=== PATIENT | female | born 1990 | race Caucasian/White ===

== ENCOUNTER 2022-03-21 01:20 | Emergency (ER) | payer BC, SELFPAY ==
[2022-03-21 01:35] VITALS: BP 96/68; PULSE 79; RESP 16; TEMP 36.9; O2SAT 100; BMI 23.7
[2022-03-21] MEDS: diphenhydrAMINE 50 MG/ML inj IVP (02:37)
[2022-03-21] MEDS: 0.9 % SODIUM CHLORIDE 1000 ml 1,000 ML IV ×2 (02:38→04:01)
[2022-03-21] MEDS: METOCLOPRAMIDE HCL 10 MG in 0.9 % SODIUM CHLORIDE 100 ml 100 ML 306 MG IVPB (02:39)
[2022-03-21 02:51] LABS: Eosinophils Percent Auto 0.6 % (0.0-7.0); Hematocrit 33.1 % (33.0-51.0); Hemoglobin* 11.3 gm/dL (12.0-16.0); Mean Corpuscular HGB Conc 34 gm/dL (32-36); Mean Corpuscular Hemoglobin 30 pg (26-34); Mean Corpuscular Volume 87 fL (80-100); Monocytes Percent Auto 8.3 % (0.0-11.0); Neutrophils Percent Auto 59.1 % (42.0-72.0); Platelet Count* 171 K/uL (140-440); RDW Coefficient of Variation % 12.9 % (11.5-15.5); Red Blood Count 3.81 m/uL (4.00-5.20); White Blood Count* 3.37 K/uL (4.50-11.00)
[2022-03-21 02:55] LABS: Slide Review Reflex No
[2022-03-21 03:03] LABS: Albumin* 3.9 g/dL (3.3-5.0); Chloride* 104 mmol/L (96-114)
[2022-03-21 03:04] LABS: Sodium* 136 mmol/L (135-149)
[2022-03-21 03:05] LABS: Potassium* 3.7 mmol/L (3.6-5.1)
[2022-03-21 03:06] LABS: Amylase* 128 U/L (18-89); Creatinine* 0.6 mg/dL (0.5-1.5); Est. Creatinine Clearance* 113.41; Estimated Glomerular Filt Rate 124 ml/min
[2022-03-21 03:07] LABS: Alanine Aminotransferase* 62 U/L (4-35); Alkaline Phosphatase* 55 U/L (40-150); Aspartate Amino Transferase* 56 U/L (12-35); Bilirubin Total* 0.6 mg/dL (0.1-1.5); Blood Urea Nitrogen* 9 mg/dL (5-24); Calcium* 9.4 mg/dL (8.4-10.6); Carbon Dioxide* 22 mmol/L (20-32); Glucose* 89 mg/dL (60-115); Lipase* 57 U/L (23-300); Total Protein* 7.4 g/dL (6.0-8.3)
--- NOTE | 2022-03-21 03:16 | ED_ITS ---
HPI - Headache General Time Seen by Provider: 01:50 Date Seen: 03/21/22 Chief Complaint: Headache/Migraine Stated Complaint: Migraine Time Seen by Provider: 03/21/22 01:53 Source: patient, RN notes reviewed and old records reviewed Mode of arrival: ambulatory Limitations: no limitations History of Present Illness HPI Narrative: Collette joel is a very pleasant 31-year-old female currently at approximately 13 weeks and 4 days with an EDC of 09/22/2022 who comes to the emergency room for evaluation regarding a headache. Patient has a history of migraines. She states this came on yesterday at noon. She states that her whole head hurts where usually just the front of her head hurts with a migraine. Her headache is associated with vomiting but she states that she has also been experiencing hyperemesis secondary to her . She states she has not been able to keep down any food or fluid today. She has been getting IV fluids at [facility]. She also notes that her stomach hurts and she shows this to be the epigastrium. She denies any urinary symptoms or vaginal discharge. She has hot had any exposure to COVID and denies a runny nose cough or congestion. Patient denies any recent ill exposures. She is not experiencing any lower abdominal pain or vaginal discharge. She also denies any urinary symptoms. MD elicited complaint: headache and migraine Related Data Home Medications Medication Instructions Recorded Confirmed levothyroxine 100 mcg tablet 150 mcg PO DAILY 03/21/22 03/21/22 ondansetron HCl 4 mg tablet 4 mg PO Q8H PRN 03/21/22 03/21/22 Allergies Allergy/AdvReac Type Severity Reaction Status Date / Time No Known Drug Allergies Allergy Verified 03/21/22 01:37 Review of Systems Status of ROS: Reports: 10 or more systems reviewed and unremarkable except as noted in History and below Const: Reports: other ([place] warm and sweaty when she woke up from a nap.); Denies: fever Eyes: Denies: change in vision ENMT: Denies: throat pain or difficulty swallowing Cardio: Denies: chest pain or shortness of breath with exertion Resp: Denies: shortness of breath or cough GI: Reports: abdominal pain (Epigastrium), nausea and vomiting; Denies: diarrhea, constipation, difficulty swallowing or blood in stool : Denies: painful urination, vaginal bleeding or vaginal discharge Musculo: Denies: back pain Integ/Breast: Denies: rash Neuro: Reports: headache; Denies: numbness in extremities or weakness in extremities Endo: Denies: excessive urination [facility] Social History Smoking Status: Light tobacco smoker How often do you have a drink containing alcohol: monthly or less How often do you have six or more drinks on one occasion: Never AUDIT-C Alcohol total score: 1 Non-prescribed substance use: denies use Exam Narrative: Exam Narrative: Past medical history: Migraines, hyperemesis, gastritis, hypothyroidism, otitis, UTI Past family history: Patient denies any recent ill contacts. Past social history: Patient denies any alcohol use. Const: Vital Signs, click to edit/add: Vital Signs - 24 hr 03/21/22 01:35 Temperature 98.5 F Pulse Rate [Pulse Oximeter] 79 Respiratory Rate 16 Blood Pressure [Ri ght Upper Arm] 96/68 Pulse Oximetry 100 Oxygen Delivery Me thod Room Air Documenting provider has reviewed patient's vital signs: yes Common normals: average body habitus, oriented x3 and no limitations Other: Patient is holding her head. During our exam she does start crying. HENMT: Common normals: normocephalic, head/scalp atraumatic and external ears normal Head and scalp: normocephalic and atraumatic Face and sinus: normal facial exam External ear: external ears normal Eye: Common normals: PERRL General eye: normal appearance of both eyes Pupil: PERRL Other: Mild photophobia. Neck & C-Spine: Common normals: full ROM, no lymphadenopathy and supple Resp: Common normals: normal respiratory effort and clear to auscultation bilaterally Effort & inspection: able to speak in complete sentences Auscultation: clear to auscultation bilaterally Cardio: Common normals: regular rate and regular rhythm Rate: regular rate Rhythm: regular rhythm GI: Common normals: soft to palpation Palpation: soft and tender (Mild in epigastrium) Details: not LLQ, not RLQ and negative for Am's sign : Common normals: no CVA tenderness Bladder/kidney exam: no CVA tenderness Back & Pelvis: Common normals: no CVA tenderness Extremity: Common normals: normal to inspection Neuro: Common normals: oriented x3 Speech: speech normal Psych: Common normals: mental status grossly normal and thought process normal Mood and affect: tearful Thought process: normal thought process Thought content: normal thought content Skin: Common normals: no rashes or lesions noted General skin exam: no rashes or lesions noted Course Course Hospital Course: Given patient's history of migraines this is course in the differential diagnosis. Would all have so have to consider life-threatening illnesses such as acute in her cranial bleed, COVID, meningitis,. Patient is afebrile with normal vital signs at this time and a supple neck. Will treat her for migraine with Benadryl 50 mg, Reglan 10 mg slow IV drip and 1 L of normal saline. Given that this headache is not her usual pattern will also check CBC, comprehensive panel, amylase, lipase, urinalysis and a CRP. Reevaluation(s) Reevaluation #1: Patient is noted to be improved and rates her headache a 2/10 at this time. She has not urinated and thus will give a 2 L of normal saline. Reevaluation #2: Note that white count is slightly depressed at 3.37 but a COVID is negative. CRP is also negative. Patient has a slight elevation of AST at 56 and ALT at 62. Patient does not have a gallbladder. Alk phos is reassuring. Amylase slightly elevated at 128. Lipase is normal. Reevaluation #3: Patient is noted to be feeling better. She has been able to rest here. I discussed her labs with her which are reassuring at this time including a urinalysis. COVID is negative. Vital Signs Vital signs: Initial Vital Signs Temperature 98.5 F 03/21/22 01:35 Temperature Source Temporal Artery Scan 03/21/22 01:35 Pulse Rate 79 03/21/22 01:35 Respiratory Rate 16 03/21/22 01:35 Blood Pressure 96/68 03/21/22 01:35 Blood Pressure Mean 77 03/21/22 01:35 Blood Pressure Position Sitting 03/21/22 01:35 Pulse Oximetry 100 03/21/22 01:35 Oxygen Delivery Method 03/21/22 01:35 Vital Signs Temperature 98.5 F 03/21/22 01:35 Pulse Rate 79 03/21/22 01:35 Respiratory Rate 16 03/21/22 01:35 Blood Pressure 96/68 03/21/22 01:35 Pulse Oximetry 100 03/21/22 01:35 Oxygen Delivery Method 03/21/22 01:35 Temperature 98.5 F 03/21/22 01:35 Pulse Rate 79 03/21/22 01:35 Respiratory Rate 16 03/21/22 01:35 Blood Pressure 96/68 03/21/22 01:35 Pulse Oximetry 100 03/21/22 01:35 Oxygen Delivery Method 03/21/22 01:35 MDM - Headache MDM Narrative Medical decision making narrative: 1. Migraine-patient has reassuring laboratory values as well as vital signs. I do not see this as a septic or life-threatening picture especially since patient is better after Reglan, Benadryl and fluids. No neurological deficits. Patient will be discharged home. No work for today. Rest and push fluids. Follow-up with primary MD for further evaluation. 2. Abdominal pain-patient is improved at this time. 3. Disposition-home. Return as needed for worsening symptoms or onset of new symptoms. Medical Records Attestation: I reviewed the patient's medical records. Lab Data Attestation: I reviewed the patient's lab results. Labs: Lab Results 03/21/22 03/21/22 03/21/22 Range/Units 02:25 02:25 02:25 WBC 3.37 L (4.50-11.00) K/uL RBC 3.81 L (4.00-5.20) m/uL Hgb 11.3 L (12.0-16.0) gm/dL Hct 33.1 (33.0-51.0) % MCV 87 (80-100) fL MCH 30 (26-34) pg MCHC 34 (32-36) gm/dL RDW Coeff of [place] 12.9 (11.5-15.5) % Plt Count 171 (140-440) K/uL Neut % (Auto) 59.1 (42.0-72.0) % Lymph % (Auto) 32.0 (20-44) % [place] % (Auto) 8.3 (0.0-11.0) % Eos % (Auto) 0.6 (0.0-7.0) % Baso % (Auto) 0.0 (0.0-3.0) % Neut # (Auto) 2.00 (1.7-7.0) K/uL Lymph # (Auto) 1.10 (0.90-2.90) K/uL Gonzales # (Auto) 0.30 (0.00-0.90) K/UL Eos # (Auto) 0.00 (0.00-0.50) K/uL Baso # (Auto) 0.00 (0.00-0.30) K/uL Abs Immat Gran (auto) 0.00 (0.00-0.30) K/uL Sodium 136 (135-149) mmol/L Potassium 3.7 (3.6-5.1) mmol/L Chloride 104 (96-114) mmol/L Carbon Dioxide 22 (20-32) mmol/L BUN 9 (5-24) mg/dL Creatinine 0.6 (0.5-1.5) mg/dL Estimated Creat Clear 113.41 Estimated GFR 124 ml/min Glucose 89 (60-115) mg/dL Calcium 9.4 (8.4-10.6) mg/dL Magnesium Cancelled Total Bilirubin 0.6 (0.1-1.5) mg/dL AST 56 H (12-35) U/L ALT 62 H (4-35) U/L Alkaline Phosphatase 55 (40-150) U/L C-Reactive Protein < 0.5 L (0.5-1.0) mg/dL Total Protein 7.4 (6.0-8.3) g/dL Albumin 3.9 (3.3-5.0) g/dL Amylase 128 H (18-89) U/L Lipase 57 (23-300) U/L Urine Color (Yellow) Urine Appearance (Clear) Urine pH (5.0-8.5) Ur Specific [place] (1.000-1.030) Urine Protein (Negative) Urine Glucose (UA) (Negative) Urine Ketones (Negative) Urine Blood (Negative) Urine Nitrite (Negative) Urine Bilirubin (Negative) Urine Urobilinogen (0.2-1.0) Ur Leukocyte Esterase (Negative) Urine RBC (0-2) Urine WBC (0-5) Ur Squamous Epith Cells (None-Few) Urine Bacteria (None) SARS-CoV-2 (PCR) Negative SARS-CoV-2 (Negative) Influenza Type A (PCR) Negative PCR FLU A (Negative) Influenza Type B (PCR) Negative PCR FLU B (Negative) 03/21/22 Range/Units 05:10 WBC (4.50-11.00) K/uL RBC (4.00-5.20) m/uL Hgb (12.0-16.0) gm/dL Hct (33.0-51.0) % MCV (80-100) fL MCH (26-34) pg MCHC (32-36) gm/dL RDW Coeff of [place] (11.5-15.5) % Plt Count (140-440) K/uL Neut % (Auto) (42.0-72.0) % Lymph % (Auto) (20-44) % [place] % (Auto) (0.0-11.0) % Eos % (Auto) (0.0-7.0) % Baso % (Auto) (0.0-3.0) % Neut # (Auto) (1.7-7.0) K/uL Lymph # (Auto) (0.90-2.90) K/uL [place] # (Auto) (0.00-0.90) K/UL Eos # (Auto) (0.00-0.50) K/uL Baso # (Auto) (0.00-0.30) K/uL Abs Immat Gran (auto) (0.00-0.30) K/uL Sodium (135-149) mmol/L Potassium (3.6-5.1) mmol/L Chloride (96-114) mmol/L Carbon Dioxide (20-32) mmol/L BUN (5-24) mg/dL Creatinine (0.5-1.5) mg/dL Estimated Creat Clear Estimated GFR ml/min Glucose (60-115) mg/dL Calcium (8.4-10.6) mg/dL Magnesium Total Bilirubin (0.1-1.5) mg/dL AST (12-35) U/L ALT (4-35) U/L Alkaline Phosphatase (40-150) U/L C-Reactive Protein (0.5-1.0) mg/dL Total Protein (6.0-8.3) g/dL Albumin (3.3-5.0) g/dL Amylase (18-89) U/L Lipase (23-300) U/L Urine Color Yellow (Yellow) Urine Appearance Cloudy A (Clear) Urine pH 6.5 (5.0-8.5) Ur Specific [place] 1.020 (1.000-1.030) Urine Protein Negative (Negative) Urine Glucose (UA) Negative (Negative) Urine Ketones Negative (Negative) Urine Blood Negative (Negative) Urine Nitrite Positive A (Negative) Urine Bilirubin Negative (Negative) Urine Urobilinogen 0.2 (0.2-1.0) Ur Leukocyte Esterase Trace A (Negative) Urine RBC 0-2 (0-2) Urine WBC 0-2 (0-5) Ur Squamous Epith Cells Moderate A (None-Few) Urine Bacteria Many A (None) SARS-CoV-2 (PCR) (Negative) Influenza Type A (PCR) (Negative) Influenza Type B (PCR) (Negative) Discharge Plan Discharge Clinical Impression: Headache Patient Disposition: Home, Self-Care Condition: Improved Additional Instructions: Push fluids and rest today. No work. Follow-up with your primary MD as needed. Return to the emergency room for worsening symptoms. Prescriptions: No Action ondansetron HCl 4 mg tablet 4 mg PO Q8H PRN Label Comments: TAKE 1 TABLET (4 MG) BY MOUTH EVERY 8 HOURS IF NEEDED FOR NAUSEA/VOMITING. levothyroxine 100 mcg tablet 150 mcg PO DAILY Label Comments: TAKE 1 TABLET BY MOUTH BEFORE BREAKFAST. Follow Up/Referrals: Anastasiia Penny DO [Primary Care Provider] - Stand Alone Forms: [employer] Info Instructions
[2022-03-21 03:19] LABS: C Reactive Protein* < 0.5 mg/dL (0.5-1.0)
[2022-03-21 03:29] LABS: PCR FLU A Negative PCR FLU A (Negative); PCR FLU B Negative PCR FLU B (Negative)
[2022-03-21 03:32] LABS: SARS PCR* Negative SARS-CoV-2 (Negative)
[2022-03-21 05:13] LABS: Appearance Urine Cloudy (Clear); Bilirubin Urine Negative (Negative); Blood Urine Negative (Negative); Color Urine Yellow (Yellow); Glucose Urine Negative (Negative); Ketones Urine Negative (Negative); Leukocyte Esterase Urine Trace (Negative); Nitrite Urine Positive (Negative); Protein Urine Negative (Negative); Urobilinogen Urine 0.2 (0.2-1.0); pH Urine 6.5 (5.0-8.5)
[2022-03-21 05:22] LABS: RBC Urine 0-2 (0-2); WBC Urine 0-2 (0-5)
[2022-03-21 05:23] LABS: Bacteria Urine Many; Squamous Epithelial Cell Urine Moderate (None-Few)
[2022-03-21 05:54] VITALS: BP 95/70; PULSE 72; RESP 16; TEMP 36.1; O2SAT 99
--- NOTE | 2022-03-21 06:00 | ED.NURSE ---
pt called for a ride, waiting in room until they arrive.
== END 2022-03-21 06:04 | disposition home or self-care (01) ==
PROVIDERS: Emergency Provider Family Medicine; PCP Family Medicine
DX: G43.909 Migraine, unspecified, not intractable, without status migrainosus (principal); R10.9 Unspecified abdominal pain; Z3A.13 13 weeks gestation of pregnancy
CPT/HCPCS: 36415; 80053; 81003; 81015; 82150; 83690; 83735; 85025; 86140; 87086; 87186; 87502; 87635; 96365; 96375; 99283; 99284; J1200; J2765; J7030

== ENCOUNTER 2022-04-12 21:13 | Emergency (ER) | payer BC, SELFPAY ==
[2022-04-12] VITALS (7 sets, daily range): BP systolic 95–111; BP diastolic 56–75; PULSE 73–82; RESP 16; TEMP 36.4; O2SAT 98–100; BMI 23.9
--- NOTE | 2022-04-12 21:37 | CRLHL7_ITS ---
For Patients: As a result of the Century Cures Act, medical imaging exams and procedure reports are released immediately into your electronic medical record. You may view this report before your referring provider. If you have questions, please contact your health care provider. INDICATION: Spotting at 16 weeks 5 days. TECHNIQUE: Ultrasound OB pelvis transabdominal. Real-time liu-scale imaging of the fetus was performed as well as color Doppler pressure COMPARISON: Ultrasound 01/31/2022. FINDINGS: Sonographic imaging demonstrates a single living intrauterine gestation. Fetus demonstrates a regular cardiac rate of 157 beats per minute. Fetus has a cephalic orientation. Amniotic fluid volume appears normal. Single deepest pocket measures 3.14 cm. Anechoic area near at the placental edge toward the cervix measuring 1.5 x 0.8 cm, possible subchorionic hemorrhage. Placenta edge to cervix measures 2.3 cm. Cervix is closed measuring 4.37 cm in length. The following biometric measurements were obtained: Biparietal diameter: 3.6 cm, 17 weeks 0 day, approximately 64th percentile. Head circumference: 12.94 cm, 16 weeks 4 day, approximately 32nd percentile. Abdominal circumference: 10.55 cm, 16 weeks 3 day, approximately 42 percentile. Femur length: 2.31 cm, 17 weeks 0 day, approximate 54th percentile. FL/AC ratio 21.8 percent. HC/AC ratio 1.17 The composite ultrasound gestational age is calculated at 16 week 5 day with an estimated sonographic due date of 09/22/2022. The weight is estimated at 164.89 grams, the 39.9 percentile. IMPRESSION.: 1. Single intrauterine with estimated age of 16 weeks 5 day. 2. Anechoic 1.5 x 0.8 cm region at the placental edge towards the cervix, possibly subchorionic hemorrhage. Dictated by Rahul Oropeza MD @ 04/15/2022 8:49:41 AM (Electronically Signed)
--- NOTE | 2022-04-12 21:42 | ED_ITS ---
HPI - General Time Seen by Provider: 21:30 Date Seen: 04/12/22 Chief complaint: Vaginal Bleeding Stated complaint: 16 WKS - BLEEDING/ABDOMINAL PAIN Time Seen by Provider: 04/12/22 21:18 Source: patient, RN notes reviewed and old records reviewed Mode of arrival: ambulatory Limitations: no limitations History of Present Illness HPI Narrative: Collette is a very pleasant 31-year-old female G5P 3 with history of miscarriage at approximately 6-7 weeks in the spring of this year who comes to the emergency room for evaluation regarding vaginal bleeding. Patient is approximately 16 weeks with an EDC of September. She states that earlier today she was experiencing some mild cramping in her abdomen. This evening she was in the shower and looked down and noticed blood coming down her leg. There has been no bleeding since that time. She does have associated left sided abdominal pain and suprapubic cramping. She denies nausea vomiting or fever. She is currently being treated for a UTI. She has not had any diarrhea or dysuria. Patient denies fever or chills. Patient : Yes Number of Weeks : 16+ Related Data : 5 Para: 3 Total number of abortions (spontaneous and elective): 1 (Spontaneous at approximately 6-7 weeks) Home Medications Medication Instructions Recorded Confirmed levothyroxine 100 mcg tablet 150 mcg PO DAILY 03/21/22 04/12/22 ondansetron HCl 4 mg tablet 4 mg PO Q8H PRN 03/21/22 04/12/22 cephalexin 500 mg capsule 500 mg PO BID 04/12/22 04/12/22 Allergies Allergy/AdvReac Type Severity Reaction Status Date / Time No Known Drug Allergies Allergy Verified 03/21/22 01:37 Review of Systems Status of ROS: Reports: 10 or more systems reviewed and unremarkable except as noted in History and below Const: Denies: fever or chills Eyes: Denies: change in vision ENMT: Denies: throat pain or difficulty swallowing Cardio: Denies: chest pain, palpitations or shortness of breath with exertion Resp: Denies: shortness of breath or cough GI: Reports: abdominal pain; Denies: nausea, vomiting, diarrhea or difficulty swallowing : Reports: other (Currently taking antibiotics for UTI); Denies: painful urination or urinary frequency Musculo: Denies: back pain Neuro: Denies: headache Psych: Reports: other (Fearful) [facility] Medical History Anemia affecting Graves' disease H. pylori infection Hyperemesis gravidarum Hypothyroidism (acquired) Major depressive disorder Pancytopenia Vitamin D deficiency Surgical History No significant past surgical history Social History Smoking Status: Light tobacco smoker How often do you have a drink containing alcohol: monthly or less How often do you have six or more drinks on one occasion: Never AUDIT-C Alcohol total score: 1 Non-prescribed substance use: denies use Exam 2 Const: Vital Signs, click to edit/add: Vital Signs - 24 hr 04/12/22 21:19 04/12/22 21:52 04/12/22 22:20 Temperature 97.6 F Pulse Rate 77 77 Pulse Rate [Right Pulse Oximeter] 73 Respiratory Rate 16 Blood Pressure 106/75 Blood Pressure [Ri ght Upper Arm] 111/75 Pulse Oximetry 98 98 100 Oxygen Delivery Me thod Room Air 04/12/22 22:21 04/12/22 23:50 04/12/22 22:59 Temperature 97.6 F Pulse Rate 77 77 Pulse Rate [Right Pulse Oximeter] Respiratory Rate Blood Pressure 95/56 L Blood Pressure [Ri ght Upper Arm] Pulse Oximetry 100 99 Oxygen Delivery Me thod 04/12/22 23:00 Temperature Pulse Rate 82 Pulse Rate [Right Pulse Oximeter] Respiratory Rate Blood Pressure Blood Pressure [Ri ght Upper Arm] Pulse Oximetry 100 Oxygen Delivery Me thod Documenting provider has reviewed patient's vital signs: yes Common normals: average body habitus, oriented x3, no limitations, healthy appearing and alert General appearance: cooperative and anxious Other: Holding the left side of her abdomen. HENMT: Common normals: normocephalic and external nose normal Head and scalp: normocephalic Face and sinus: normal facial exam Nose: external nose normal Mouth: oral and palatal mucosa normal Throat: posterior oropharynx normal Eye: Common normals: PERRL General eye: normal appearance of both eyes Pupil: PERRL Neck & C-Spine: Common normals: full ROM and supple Resp: Common normals: normal respiratory effort and clear to auscultation bilaterally Auscultation: clear to auscultation bilaterally Cardio: Common normals: regular rate Rate: regular rate GI: Common normals: soft to palpation Palpation: soft and tender Details: LLQ and LUQ : Common normals: no CVA tenderness Bladder/kidney exam: no CVA tenderness Back & Pelvis: Common normals: no CVA tenderness Extremity: Common normals: normal to inspection General: no edema Neuro: Common normals: oriented x3 Sensorium/orientation: alert Speech: speech normal Psych: Common normals: mental status grossly normal and thought process normal Mood and affect: tearful and fearful Thought process: normal thought process Skin: Common normals: no rashes or lesions noted General skin exam: no rashes or lesions noted Course Course Hospital Course: Patient will undergo pelvic ultrasound. heart tones are [address] IV and draw CBC, comprehensive panel, CRP, lactate and obtain urinalysis. Will plan on OB consult. Vital Signs Vital signs: Initial Vital Signs Temperature 97.6 F 04/12/22 21:19 Temperature Source Temporal Artery Scan 04/12/22 21:19 Pulse Rate 73 04/12/22 21:19 Respiratory Rate 16 04/12/22 21:19 Blood Pressure 111/75 04/12/22 21:19 Blood Pressure Mean 87 04/12/22 21:19 Blood Pressure Position Sitting 04/12/22 21:19 Pulse Oximetry 98 04/12/22 21:19 Oxygen Delivery Method 04/12/22 21:19 Vital Signs Temperature 97.6 F 04/12/22 21:19 Pulse Rate 73 04/12/22 21:19 Respiratory Rate 16 04/12/22 21:19 Blood Pressure 111/75 04/12/22 21:19 Pulse Oximetry 98 04/12/22 21:19 Oxygen Delivery Method 04/12/22 21:19 Temperature 97.6 F 04/12/22 23:50 Pulse Rate 82 04/12/22 23:00 Respiratory Rate 16 04/12/22 21:19 Blood Pressure 95/56 L 04/12/22 22:59 Pulse Oximetry 100 04/12/22 23:00 Oxygen Delivery Method 04/12/22 21:19 MDM - OB/Uterine Contractions MDM Narrative Medical decision making narrative: 1. Vaginal bleeding-ultrasound reassuring with small area of subchorionic hemorrhage only. Baby appears to be moving and appears healthy. No evidence of placenta previa. Patient did have sexual activity yesterday. Perhaps this is related. Recommend abstinence from sexual activity at this time. 2. Left upper quadrant discomfort. -patient noted to be much improved. Will give her Tylenol 650 mg p.o.. Vital signs are without tachycardia. Urinalysis without evidence of hematuria or UTI. White count slightly depressed at 3.42. Hemoglobin is 10.7 with previous value of 11.3. Electrolyte panel within normal limits and CRP within normal limits. 3. Disposition- patient now noted to be feeling much better. No recurrent bleeding. No fever chills or vomiting. Patient is normally seen by Dr. Penny, [facility]. Patient is instructed to return for any worsening symptoms. She notes resolution of her symptoms at this time. No evidence of sepsis, UTI, hematuria, electrolyte balance, kidney failure. Medical Records Attestation: I reviewed the patient's medical records. Lab Data Attestation: I reviewed the patient's lab results. Labs: Lab Results 04/12/22 04/12/22 04/12/22 Range/Units 21:35 21:35 21:35 WBC 3.42 L (4.50-11.00) K/uL RBC 3.62 L (4.00-5.20) m/uL Hgb 10.7 L (12.0-16.0) gm/dL Hct 31.6 L (33.0-51.0) % MCV 87 (80-100) fL MCH 30 (26-34) pg MCHC 34 (32-36) gm/dL RDW Coeff of [place] 14.0 (11.5-15.5) % Plt Count 187 (140-440) K/uL Neut % (Auto) 53.5 (42.0-72.0) % Lymph % (Auto) 37.4 (20-44) % [place] % (Auto) 8.8 (0.0-11.0) % Eos % (Auto) 0.3 (0.0-7.0) % Baso % (Auto) 0.0 (0.0-3.0) % Neut # (Auto) 1.80 (1.7-7.0) K/uL Lymph # (Auto) 1.30 (0.90-2.90) K/uL [place] # (Auto) 0.30 (0.00-0.90) K/UL Eos # (Auto) 0.00 (0.00-0.50) K/uL Baso # (Auto) 0.00 (0.00-0.30) K/uL Abs Immat Gran (auto) 0.00 (0.00-0.30) K/uL Sodium 135 (135-149) mmol/L Potassium 3.7 (3.6-5.1) mmol/L Chloride 106 (96-114) mmol/L Carbon Dioxide 20 (20-32) mmol/L BUN 9 (5-24) mg/dL Creatinine 0.5 (0.5-1.5) mg/dL Estimated Creat Clear 136.09 Estimated GFR 129 ml/min Glucose 95 (60-115) mg/dL Lactate 0.7 (0.5-1.9) mmol/L Calcium 9.5 (8.4-10.6) mg/dL C-Reactive Protein < 0.5 L (0.5-1.0) mg/dL Urine Color (Yellow) Urine Appearance (Clear) Urine pH (5.0-8.5) Ur Specific [place] (1.000-1.030) Urine Protein (Negative) Urine Glucose (UA) (Negative) Urine Ketones (Negative) Urine Blood (Negative) Urine Nitrite (Negative) Urine Bilirubin (Negative) Urine Urobilinogen (0.2-1.0) Ur Leukocyte Esterase (Negative) 04/12/22 Range/Units 21:50 WBC (4.50-11.00) K/uL RBC (4.00-5.20) m/uL Hgb (12.0-16.0) gm/dL Hct (33.0-51.0) % MCV (80-100) fL MCH (26-34) pg MCHC (32-36) gm/dL RDW Coeff of [place] (11.5-15.5) % Plt Count (140-440) K/uL Neut % (Auto) (42.0-72.0) % Lymph % (Auto) (20-44) % [place] % (Auto) (0.0-11.0) % Eos % (Auto) (0.0-7.0) % Baso % (Auto) (0.0-3.0) % Neut # (Auto) (1.7-7.0) K/uL Lymph # (Auto) (0.90-2.90) K/uL [place] # (Auto) (0.00-0.90) K/UL Eos # (Auto) (0.00-0.50) K/uL Baso # (Auto) (0.00-0.30) K/uL Abs Immat Gran (auto) (0.00-0.30) K/uL Sodium (135-149) mmol/L Potassium (3.6-5.1) mmol/L Chloride (96-114) mmol/L Carbon Dioxide (20-32) mmol/L BUN (5-24) mg/dL Creatinine (0.5-1.5) mg/dL Estimated Creat Clear Estimated GFR ml/min Glucose (60-115) mg/dL Lactate (0.5-1.9) mmol/L Calcium (8.4-10.6) mg/dL C-Reactive Protein (0.5-1.0) mg/dL Urine Color Yellow (Yellow) Urine Appearance Clear (Clear) Urine pH 7.5 (5.0-8.5) Ur Specific [place] 1.015 (1.000-1.030) Urine Protein Negative (Negative) Urine Glucose (UA) Negative (Negative) Urine Ketones Negative (Negative) Urine Blood Negative (Negative) Urine Nitrite Negative (Negative) Urine Bilirubin Negative (Negative) Urine Urobilinogen 0.2 (0.2-1.0) Ur Leukocyte Esterase Negative (Negative) Imaging Data Pelvic ultrasound: Attestation: I have reviewed the pertinent imaging results. Radiologist's impression: Placenta: posterior. There is a 1.5 x 0.8 cm anechoic at placental edge, possible subchorionic hemorrhage. The cervix is 2.3cm from the placental edge. Cervical length is 3.8cm. SDP: 3.1 BPD: 3.6cm/17w0d HC: 12.9cm/16w4d AC: 10.5cm/16w3d FL: 2.3cm/17w0d EFW: 164.89g/ 39.9% Ultrasound gestational age: 16w5d, concordant. Discharge Plan Discharge Clinical Impression: Vaginal bleeding Patient Disposition: Home, Self-Care Condition: Improved Additional Instructions: Avoid sexual activity until seen by your primary MD. please see your doctor on Friday. Rest. Tylenol as needed. Return to the emergency room for fever, worsening symptoms and as needed. Prescriptions: No Action ondansetron HCl 4 mg tablet 4 mg PO Q8H PRN Label Comments: TAKE 1 TABLET (4 MG) BY MOUTH EVERY 8 HOURS IF NEEDED FOR NAUSEA/VOMITING. levothyroxine 100 mcg tablet 150 mcg PO DAILY Label Comments: TAKE 1 TABLET BY MOUTH BEFORE BREAKFAST. cephalexin 500 mg capsule 500 mg PO BID Label Comments: TAKE 1 CAPSULE (500 MG) BY MOUTH IN THE MORNING AND 1 CAPSULE (500 MG) IN THE EVENING FOR 7 DAYS Follow Up/Referrals: Anastasiia Penny DO [Primary Care Provider] - Stand Alone Forms: [facility] Info Instructions Procedures Perimortem Number of Weeks : 16+
[2022-04-12 21:51] LABS: Eosinophils Percent Auto 0.3 % (0.0-7.0); Hematocrit 31.6 % (33.0-51.0); Hemoglobin* 10.7 gm/dL (12.0-16.0); Lymphocytes Percent Auto 37.4 % (20-44); Mean Corpuscular HGB Conc 34 gm/dL (32-36); Mean Corpuscular Hemoglobin 30 pg (26-34); Mean Corpuscular Volume 87 fL (80-100); Monocytes Percent Auto 8.8 % (0.0-11.0); Neutrophils Percent Auto 53.5 % (42.0-72.0); Platelet Count* 187 K/uL (140-440); Red Blood Count 3.62 m/uL (4.00-5.20); White Blood Count* 3.42 K/uL (4.50-11.00)
[2022-04-12 21:52] LABS: Lactate* 0.7 mmol/L (0.5-1.9)
[2022-04-12 21:56] LABS: Slide Review Reflex No
[2022-04-12 22:11] LABS: Chloride* 106 mmol/L (96-114)
[2022-04-12 22:12] LABS: Potassium* 3.7 mmol/L (3.6-5.1)
[2022-04-12 22:14] LABS: Creatinine* 0.5 mg/dL (0.5-1.5); Est. Creatinine Clearance* 136.09; Estimated Glomerular Filt Rate 129 ml/min
[2022-04-12 22:15] LABS: Blood Urea Nitrogen* 9 mg/dL (5-24); Carbon Dioxide* 20 mmol/L (20-32); Glucose* 95 mg/dL (60-115)
[2022-04-12 22:16] LABS: Calcium* 9.5 mg/dL (8.4-10.6)
[2022-04-12 22:22] LABS: C Reactive Protein* < 0.5 mg/dL (0.5-1.0)
[2022-04-12 22:26] LABS: Sodium* 135 mmol/L (135-149)
[2022-04-12 23:06] LABS: Appearance Urine Clear (Clear); Bilirubin Urine Negative (Negative); Blood Urine Negative (Negative); Color Urine Yellow (Yellow); Glucose Urine Negative (Negative); Ketones Urine Negative (Negative); Leukocyte Esterase Urine Negative (Negative); Nitrite Urine Negative (Negative); Protein Urine Negative (Negative); Specific Gravity Urine 1.015 (1.000-1.030); Urobilinogen Urine 0.2 (0.2-1.0); pH Urine 7.5 (5.0-8.5)
[2022-04-12] MEDS: ACETAMINOPHEN 325 MG TABLET 650 MG PO (23:50)
[2022-04-13 01:04] VITALS: BP 115/78; PULSE 70; RESP 16; TEMP 36.4; O2SAT 100
[2022-04-13 01:07] VITALS: BP 115/78; PULSE 70; RESP 16; TEMP 36.4
== END 2022-04-13 01:08 | disposition home or self-care (01) ==
PROVIDERS: Emergency Provider Family Medicine; PCP Family Medicine
DX: O46.8X2 Other antepartum hemorrhage, second trimester (principal); Z3A.16 16 weeks gestation of pregnancy; R10.12 Left upper quadrant pain
CPT/HCPCS: 36415; 76815; 76817; 80048; 81003; 83605; 85025; 86140; 99284; A9270

== ENCOUNTER 2022-04-28 17:42 | Emergency (ER) | payer BC, SELFPAY ==
[2022-04-28 17:44] VITALS: BP 99/65; PULSE 83; RESP 16; TEMP 36.8; O2SAT 99; BMI 25.1
--- NOTE | 2022-04-28 18:00 | CRLHL7_ITS ---
For Patients: As a result of the Cures Act, medical imaging exams and procedure reports are released immediately into your electronic medical record. You may view this report before your referring provider. If you have questions, please contact your health care provider. Indication: Trauma with pain Technique: Limited sonography of the gravid uterus was performed. The study is limited to that which is discussed below. Comparison: April 12, 2022 Findings: There is a single live intrauterine that is transverse. The cervix measures 3.6 centimeters and is closed. The single deepest pocket is 3.9 centimeters. heart rate is 166 beats per minute which is normal. The placenta is posterior. There is no evidence of abruption or hemorrhage behind or at the margins of the placenta. Floating cellular debris is identified in the dependent portion the uterus in the amniotic fluid in the lower uterine segment near the cervix. This was not present on the prior study. This cellular debris is probably red blood cells associated hemorrhage. The exact source of this is not visible on the exam Impression: 1. There is a single live intrauterine with a normal heart rate. Fluid volumes are normal. 2. No visible abruption. No hemorrhage behind her at the margins of the placenta as visualized 3. Floating cellular debris within the dependent portion of the uterus within the amniotic fluid. This is not present on the prior study and probably represents red cells associated with hemorrhage. The exact source of this is not visible on the exam Dictated by Baryan Blancas MD @ 04/28/2022 6:47:42 PM (Electronically Signed)
[2022-04-28] MEDS: ACETAMINOPHEN 500 MG TABLET 1000 MG PO (18:30)
[2022-04-28 18:38] LABS: Eosinophils Percent Auto 0.8 % (0.0-7.0); Hematocrit 28.2 % (33.0-51.0); Hemoglobin* 9.7 gm/dL (12.0-16.0); Lymphocytes Percent Auto 32.8 % (20-44); Mean Corpuscular HGB Conc 34 gm/dL (32-36); Mean Corpuscular Hemoglobin 31 pg (26-34); Mean Corpuscular Volume 89 fL (80-100); Monocytes Percent Auto 9.7 % (0.0-11.0); Neutrophils Percent Auto 56.7 % (42.0-72.0); Platelet Count* 153 K/uL (140-440); RDW Coefficient of Variation % 15.1 % (11.5-15.5); Red Blood Count 3.17 m/uL (4.00-5.20)
[2022-04-28 18:40] LABS: Slide Review Reflex No
[2022-04-28 18:52] LABS: Chloride* 104 mmol/L (96-114); Potassium* 3.2 mmol/L (3.6-5.1); Sodium* 134 mmol/L (135-149)
[2022-04-28 18:55] LABS: Blood Urea Nitrogen* 8 mg/dL (5-24); Carbon Dioxide* 25 mmol/L (20-32); Creatinine* 0.5 mg/dL (0.5-1.5); Est. Creatinine Clearance* 130.12; Estimated Glomerular Filt Rate 129 ml/min
[2022-04-28 18:56] LABS: Calcium* 8.7 mg/dL (8.4-10.6); Glucose* 77 mg/dL (60-115)
[2022-04-28 18:59] LABS: C Reactive Protein* < 0.5 mg/dL (0.5-1.0)
--- NOTE | 2022-04-28 19:31 | ED_ITS ---
HPI - General Adult General Date Seen: 04/28/22 Chief complaint: Abdominal Pain Stated complaint: Abdominal pain Time Seen by Provider: 04/28/22 17:52 Source: patient History of Present Illness HPI narrative: Patient is a 31-year-old woman who is a G5 P 3, she is about 19 weeks , comes in with some pain that started yesterday in the right side of her abdomen on the lateral side, was mild, has persisted gotten a little bit worse and now involves essentially the entire abdomen. She does report that she had a fall yesterday, she says she and her were both in the shower when he started to slip, he grabbed on to her I guess purportedly to stabilize her so that she did not fall but then they both fell and she landed on her knees. She says she did not hit her stomach, has not had any bleeding, but has had this stomach pain since then. She has not taken anything for pain. She has not had any nausea vomiting, appetite has been normal. She has not had any urinary symptoms, no fever. She has had 3 normal pregnancies with induction, 1 miscarriage earlier this year. Related Data Home Medications Medication Instructions Recorded Confirmed levothyroxine 100 mcg tablet 150 mcg PO DAILY 03/21/22 04/28/22 ondansetron HCl 4 mg tablet 4 mg PO Q8H PRN 03/21/22 04/12/22 cephalexin 500 mg capsule 500 mg PO BID 04/12/22 04/12/22 prenat.vits,danuta,[id number] .ROUTE 04/28/22 Allergies Allergy/AdvReac Type Severity Reaction Status Date / Time No Known Drug Allergies Allergy Verified 03/21/22 01:37 Review of Systems Status of ROS: Reports: 10 or more systems reviewed and unremarkable except as noted in History and below [facility] Medical History Anemia affecting Graves' disease H. pylori infection Hyperemesis gravidarum Hypothyroidism (acquired) Major depressive disorder Pancytopenia Vitamin D deficiency Surgical History No significant past surgical history Social History Smoking Status: Never smoker Do you use any of these nicotine containing products: None How often do you have a drink containing alcohol: never AUDIT-C Alcohol total score: 0 Non-prescribed substance use: denies use Exam Narrative: Exam Narrative: Vital signs as noted above. In general, an alert, well-appearing patient. She looks comfortable. Head: Normocephalic, atraumatic. Eyes: Pupils are equal reactive. Extraocular movements are full. Conjunctivae are normal. ENT: Mucous membranes are moist. Throat is normal. Neck: Supple without lymphadenopathy. Heart: Regular rate and rhythm. No murmur or rub. Lungs: Clear bilaterally. No increased work of breathing, crackles or wheezes. Abdomen: Soft and nondistended. Mild diffuse tenderness without rebound guarding or rigidity. No areas of focal increased tenderness. Extremities: Well perfused. No edema. No calf tenderness. Pulses intact. Neurologic: Patient is alert and oriented to person and place. Speech is fluent. Face is symmetric. Moves all extremities equally. Affect: Normal. Skin: Warm and dry. Well perfused. Const: Vital Signs, click to edit/add: Vital Signs - 24 hr 04/28/22 17:44 04/28/22 20:30 Temperature 98.3 F Pulse Rate [Pulse Oximeter] 83 72 Respiratory Rate 16 18 Blood Pressure [Le ft Upper Arm] 99/65 97/73 Pulse Oximetry 99 100 Oxygen Delivery Me thod Room Air Room Air Course Course Hospital Course: With her history of minor trauma yesterday I did elect to do an ultrasound, this is read by Radiology as follows:Impression: 1. There is a single live intrauterine with a normal heart rate. Fluid volumes are normal. 2. No visible abruption. No hemorrhage behind her at the margins of the placenta as visualized 3. Floating cellular debris within the dependent portion of the uterus within the amniotic fluid. This is not present on the prior study and probably represents red cells associated with hemorrhage. The exact source of this is not visible on the exam Urine showed nitrates, no red cells or white cells. I discussed all of this with the on-call OB Gyne doc. He said that the hemorrhage seen in the amniotic fluid would be reasonably followed up on her 20 week scan which is upcoming. He says that there is not really anything else to do about that given that she is previable. I did tell her just to kind of take it easy over the next few days. Asked them to avoid intercourse for few days. She can use Tylenol as needed. She does not have any focal tenderness in her abdomen, she is not having any GI symptoms, my suspicion for early appendicitis is rather low given that this all started yesterday but we did talk about that if she develops focal pain or GI symptoms, fever etcetera would have her return for re-evaluation. Vital Signs Vital signs: Initial Vital Signs Temperature 98.3 F 04/28/22 17:44 Temperature Source Temporal Artery Scan 04/28/22 17:44 Pulse Rate 83 04/28/22 17:44 Respiratory Rate 16 04/28/22 17:44 Blood Pressure 99/65 04/28/22 17:44 Blood Pressure Mean 76 04/28/22 17:44 Blood Pressure Position Supine 04/28/22 17:44 Pulse Oximetry 99 04/28/22 17:44 Oxygen Delivery Method 04/28/22 17:44 Vital Signs Temperature 98.3 F 04/28/22 17:44 Pulse Rate 83 04/28/22 17:44 Respiratory Rate 16 04/28/22 17:44 Blood Pressure 99/65 04/28/22 17:44 Pulse Oximetry 99 04/28/22 17:44 Oxygen Delivery Method 04/28/22 17:44 Temperature 98.3 F 04/28/22 17:44 Pulse Rate 72 04/28/22 20:30 Respiratory Rate 18 04/28/22 20:30 Blood Pressure 97/73 04/28/22 20:30 Pulse Oximetry 100 04/28/22 20:30 Oxygen Delivery Method 04/28/22 20:30 Medical Decision Making Lab Data Labs: Lab Results 04/28/22 04/28/22 04/28/22 Range/Units 18:30 18:30 19:22 WBC 3.60 L (4.50-11.00) K/uL RBC 3.17 L (4.00-5.20) m/uL Hgb 9.7 L (12.0-16.0) gm/dL Hct 28.2 L (33.0-51.0) % MCV 89 (80-100) fL MCH 31 (26-34) pg MCHC 34 (32-36) gm/dL RDW Coeff of [place] 15.1 (11.5-15.5) % Plt Count 153 (140-440) K/uL Neut % (Auto) 56.7 (42.0-72.0) % Lymph % (Auto) 32.8 (20-44) % [place] % (Auto) 9.7 (0.0-11.0) % Eos % (Auto) 0.8 (0.0-7.0) % Baso % (Auto) 0.0 (0.0-3.0) % Neut # (Auto) 2.00 (1.7-7.0) K/uL Lymph # (Auto) 1.20 (0.90-2.90) K/uL [place] # (Auto) 0.30 (0.00-0.90) K/UL Eos # (Auto) 0.00 (0.00-0.50) K/uL Baso # (Auto) 0.00 (0.00-0.30) K/uL Abs Immat Gran (auto) 0.00 (0.00-0.30) K/uL Sodium 134 L (135-149) mmol/L Potassium 3.2 L (3.6-5.1) mmol/L Chloride 104 (96-114) mmol/L Carbon Dioxide 25 (20-32) mmol/L BUN 8 (5-24) mg/dL Creatinine 0.5 (0.5-1.5) mg/dL Estimated Creat Clear 130.12 Estimated GFR 129 ml/min Glucose 77 (60-115) mg/dL Calcium 8.7 (8.4-10.6) mg/dL C-Reactive Protein < 0.5 L (0.5-1.0) mg/dL Urine Color Yellow (Yellow) Urine Appearance Slightly Cloudy A (Clear) Urine pH 7.0 (5.0-8.5) Ur Specific [place] 1.020 (1.000-1.030) Urine Protein Negative (Negative) Urine Glucose (UA) Negative (Negative) Urine Ketones Negative (Negative) Urine Blood Negative (Negative) Urine Nitrite Positive A (Negative) Urine Bilirubin Negative (Negative) Urine Urobilinogen 0.2 (0.2-1.0) Ur Leukocyte Esterase Negative (Negative) Urine RBC 0-2 (0-2) Urine WBC 0-2 (0-5) Urine WBC Clumps None (None) Ur Squamous Epith Cells None (None-Few) Urine Bacteria Moderate A (None) Discharge Plan Discharge Clinical Impression: Abdominal pain Patient Disposition: Home, Self-Care Condition: Stable Instructions: Abdominal Pain in (ED) Additional Instructions: Small amount of blood seen in the amniotic fluid suggest that you had a little bit of trauma from her fall yesterday. This may be causing some of your discomfort. It is located take Tylenol. If you have significant worsening pain, new symptoms such as vomiting, fever, or more focal pain, you should come back for re-evaluation. Otherwise, follow-up with your OB Gyne and for your ultrasound as planned. Prescriptions: No Action ondansetron HCl 4 mg tablet 4 mg PO Q8H PRN Label Comments: TAKE 1 TABLET (4 MG) BY MOUTH EVERY 8 HOURS IF NEEDED FOR NAUSEA/VOMITING. levothyroxine 100 mcg tablet 150 mcg PO DAILY Label Comments: TAKE 1 TABLET BY MOUTH BEFORE BREAKFAST. cephalexin 500 mg capsule 500 mg PO BID Label Comments: TAKE 1 CAPSULE (500 MG) BY MOUTH IN THE MORNING AND 1 CAPSULE (500 MG) IN THE EVENING FOR 7 DAYS prenat.vits,danuta,[id number] .ROUTE Follow Up/Referrals: nAastasiia Penny DO [Primary Care Provider] - Stand Alone Forms: [facility] Info Instructions
[2022-04-28 19:46] LABS: Appearance Urine Slightly Cloudy (Clear); Bilirubin Urine Negative (Negative); Blood Urine Negative (Negative); Color Urine Yellow (Yellow); Glucose Urine Negative (Negative); Ketones Urine Negative (Negative); Leukocyte Esterase Urine Negative (Negative); Nitrite Urine Positive (Negative); Protein Urine Negative (Negative); Urobilinogen Urine 0.2 (0.2-1.0)
[2022-04-28 19:55] LABS: Bacteria Urine Moderate; RBC Urine 0-2 (0-2); WBC Urine 0-2 (0-5)
[2022-04-28 20:30] VITALS: BP 97/73; PULSE 72; RESP 18; O2SAT 100
== END 2022-04-28 20:35 | disposition home or self-care (01) ==
LOC: ED 19:00 → OB 19:02 → ED 19:08
PROVIDERS: Emergency Provider Emergency Medicine; PCP Family Medicine
DX: R10.9 Unspecified abdominal pain (principal); O26.92 Pregnancy related conditions, unspecified, second trimester; Z3A.19 19 weeks gestation of pregnancy
CPT/HCPCS: 36415; 76815; 76817; 80048; 81001; 85025; 86140; 87086; 87186; 99283; 99284; A9270

== ENCOUNTER 2022-05-29 10:27 | Outpatient (RCR) | payer BC, SELFPAY | END 2022-09-05 08:35 | disposition home or self-care (01) | PROVIDERS: PCP Family Medicine; Visit Provider Family Medicine | DX: O26.892 Other specified pregnancy related conditions, second trimester (principal); M54.50 Low back pain, unspecified; Z51.89 Encounter for other specified aftercare; R27.8 Other lack of coordination | CPT/HCPCS: 97162 ==

== ENCOUNTER 2022-08-01 18:09 | Outpatient (CLI) | payer BC, SELFPAY ==
[2022-08-01 18:27] VITALS: BP 99/62; PULSE 78; O2SAT 99
[2022-08-01] MEDS: ACETAMINOPHEN 500 MG TABLET 1000 MG PO (19:11)
[2022-08-01 19:17] LABS: Hematocrit 28.8 % (33.0-51.0); Hemoglobin* 9.9 gm/dL (12.0-16.0); Mean Corpuscular HGB Conc 34 gm/dL (32-36); Mean Corpuscular Hemoglobin 31 pg (26-34); Mean Corpuscular Volume 91 fL (80-100); Platelet Count* 163 K/uL (140-440); Red Blood Count 3.16 m/uL (4.00-5.20); White Blood Count* 3.53 K/uL (4.50-11.00)
[2022-08-01 19:19] LABS: Appearance Urine Slightly Cloudy (Clear); Bilirubin Urine Negative (Negative); Blood Urine Negative (Negative); Color Urine Yellow (Yellow); Glucose Urine Negative (Negative); Ketones Urine Negative (Negative); Leukocyte Esterase Urine Negative (Negative); Nitrite Urine Negative (Negative); Protein Urine Negative (Negative); Specific Gravity Urine 1.015 (1.000-1.030); Urobilinogen Urine 0.2 (0.2-1.0)
[2022-08-01 19:21] LABS: Slide Review Reflex No
[2022-08-01 19:27] LABS: RBC Urine 0-2 (0-2); WBC Urine 0-2 (0-5)
[2022-08-01 19:37] LABS: Total Protein Urine 26 mg/dL
[2022-08-01 19:37] LABS: Alanine Aminotransferase* 29 U/L (4-35); Aspartate Amino Transferase* 29 U/L (12-35); Blood Urea Nitrogen* 7 mg/dL (5-24); Creatinine* 0.5 mg/dL (0.5-1.5); Estimated Glomerular Filt Rate 129 ml/min
[2022-08-01 19:38] LABS: Creatinine Urine 71.5 mg/dL
--- NOTE | 2022-08-01 20:49 | PC.OBNST ---
NST Note NST Note Start: 08/01/22 18:25 Freq: ONCE Status: Active Protocol: Document 08/01/22 20:47 NUPUR (Rec: 08/01/22 20:48 NUPUR [id number]) NST Note 6 Para (# of births) 3 EDC 09/24/22 Gestational Age In Weeks & Days 32 Weeks & 2 Days Patient Presented with Complaint(s) of Contractions/cramping, Decreased movement, Headache Reactive Yes Appropriate for Gestational Age Yes ALIYA Owens RNC Date 08/01/22 Reactive Yes Appropriate for Gestational Age Yes ALIYA Todd RNC Date 08/01/22 OB NST charge Yes Complete NST Note via Write Note Yes The provider's electronic signature indicates the NST is reactive/appropriate for gestational age. *Note to provider: If an addendum is required, open the patient's chart and click on the note under the Nurse/Allied Health tab.
== END 2022-08-01 19:56 | disposition home or self-care (01) ==
LOC: OB OUT 18:10 → OB 18:11
PROVIDERS: PCP Family Medicine; Visit Provider Family Medicine
DX: O36.8130 Decreased fetal movements, third trimester, not applicable or unspecified (principal); Z3A.32 32 weeks gestation of pregnancy
CPT/HCPCS: 36415; 59025; 81003; 81015; 82565; 82570; 84156; 84450; 84460; 84520; 85027; 99213; A9270

== ENCOUNTER 2022-08-22 13:17 | Outpatient (CLI) | payer BC, SELFPAY ==
[2022-08-22 13:22] VITALS: BP 97/56; PULSE 108; RESP 16; TEMP 36.5; O2SAT 98
[2022-08-22 14:48] LABS: Hematocrit 28.7 % (33.0-51.0); Hemoglobin* 9.8 gm/dL (12.0-16.0); Mean Corpuscular HGB Conc 34 gm/dL (32-36); Mean Corpuscular Hemoglobin 31 pg (26-34); Mean Corpuscular Volume 91 fL (80-100); Platelet Count* 150 K/uL (140-440); Red Blood Count 3.16 m/uL (4.00-5.20); White Blood Count* 4.75 K/uL (4.50-11.00)
[2022-08-22 14:55] LABS: Slide Review Reflex No
[2022-08-22 15:13] LABS: Alanine Aminotransferase* 28 U/L (4-35); Aspartate Amino Transferase* 24 U/L (12-35); Blood Urea Nitrogen* 10 mg/dL (5-24); Creatinine* 0.4 mg/dL (0.5-1.5); Estimated Glomerular Filt Rate 136 ml/min
[2022-08-22 15:14] LABS: Total Protein Urine 48 mg/dL
[2022-08-22 15:15] LABS: Creatinine Urine 123.5 mg/dL
[2022-08-22 15:34] VITALS: BP 82/53; PULSE 84
[2022-08-22 15:44] VITALS: BP 86/60; PULSE 89
--- NOTE | 2022-08-25 14:33 | PC.OBNST ---
NST Note NST Note Start: 08/22/22 13:26 Freq: ONCE Status: Active Protocol: Document 08/22/22 15:50 Evette (Rec: 08/25/22 14:33 JREvette [id number]) NST Note 6 Para (# of births) 2 EDC 09/24/22 Gestational Age In Weeks & Days 35 Weeks & 5 Days Patient Presented with Complaint(s) of Headache Reactive Yes Appropriate for Gestational Age Yes RN Debby Bullock RN Date 08/22/22 Reactive Yes Appropriate for Gestational Age Yes ALIYA Gillespie RN Date 08/22/22 OB NST charge Yes Complete NST Note via Write Note Yes The provider's electronic signature indicates the NST is reactive/appropriate for gestational age. *Note to provider: If an addendum is required, open the patient's chart and click on the note under the Nurse/Allied Health tab.
== END 2022-08-22 16:35 | disposition home or self-care (01) ==
LOC: OB OUT 13:17 → OB 13:18
PROVIDERS: PCP Family Medicine; Visit Provider Family Medicine
DX: O26.893 Other specified pregnancy related conditions, third trimester (principal); R51.9 Headache, unspecified; Z3A.35 35 weeks gestation of pregnancy
CPT/HCPCS: 36415; 59025; 81003; 82565; 82570; 84156; 84450; 84460; 84520; 85027; 99213

== ENCOUNTER 2022-08-26 17:07 | Outpatient (CLI) | payer BC, SELFPAY ==
[2022-08-26 17:36] VITALS: TEMP 36.8
[2022-08-26] MEDS: LACTATED RINGERS 1000 ML 1,000 ML 300 ML IV (17:50)
[2022-08-26] MEDS: ACETAMINOPHEN 500 MG TABLET 1000 MG PO (17:50)
[2022-08-26 17:55] VITALS: BP 109/70; PULSE 86
[2022-08-26 18:09] VITALS: BP 102/62; PULSE 85
--- NOTE | 2022-08-26 18:55 | PC.OBNST ---
NST Note NST Note Start: 08/26/22 17:23 Freq: ONCE Status: Active Protocol: Document 08/26/22 18:53 CHRISHILDA (Rec: 08/26/22 18:55 CHRISHILDA [id number]) NST Note 6 Para (# of births) 3 EDC 09/24/22 Gestational Age In Weeks & Days 35 Weeks & 6 Days Patient Presented with Complaint(s) of Other Other Complaints Pt. sent over from Clinic after BPP 01/[address] BP[address] Dr Solo Brooks ordered NST, IV fluids and serial BP's Reactive Yes Appropriate for Gestational Age Yes ALIYA Parra Date 08/26/22 Reactive Yes Appropriate for Gestational Age Yes ALIYA Naylor RN Date 08/26/22 OB NST charge Yes Complete NST Note via Write Note Yes The provider's electronic signature indicates the NST is reactive/appropriate for gestational age. *Note to provider: If an addendum is required, open the patient's chart and click on the note under the Nurse/Allied Health tab.
[2022-08-26 19:58] LABS: SARS PCR* Negative SARS-CoV-2 (Negative)
[2022-08-26 20:00] VITALS: BP 103/65; PULSE 91
== END 2022-08-26 20:03 | disposition home or self-care (01) ==
LOC: OB OUT 17:09 → OB 17:42
PROVIDERS: PCP Family Medicine; Visit Provider Family Medicine
DX: O26.893 Other specified pregnancy related conditions, third trimester (principal); R03.1 Nonspecific low blood-pressure reading; Z3A.35 35 weeks gestation of pregnancy
CPT/HCPCS: 59025; 87635; 99213; A9270; J7120

== ENCOUNTER 2022-08-27 18:04 | Outpatient (CLI) | payer BC, SELFPAY ==
[2022-08-27 20:07] LABS: Total Protein Urine 27 mg/dL
[2022-08-27 20:08] LABS: Creatinine Urine 50.7 mg/dL
[2022-08-27 20:10] LABS: Collection Time Urine 1715 Hours; Total Protein 24 Hour Urine 432 mg/dL; Total Volume 24 Hour Urine 1600 ml; Urine Creatinine mg/24 Hour 0 mg/Day
== END 2022-08-27 18:05 | disposition home or self-care (01) ==
LOC: LAB 18:06
PROVIDERS: PCP Family Medicine; Visit Provider Family Medicine
DX: O13.3 Gestational [pregnancy-induced] hypertension without significant proteinuria, third trimester (principal); Z3A.35 35 weeks gestation of pregnancy
CPT/HCPCS: 82570; 84156

== ENCOUNTER 2022-09-08 17:12 | Inpatient (IN) | payer BC, SELFPAY ==
[2022-09-08] VITALS (41 sets, daily range): BP systolic 94–119; BP diastolic 57–69; PULSE 74–102; RESP 16; TEMP 36.6–36.9; O2SAT 98–100
[2022-09-08] MEDS: ACETAMINOPHEN 500 MG TABLET 1000 MG PO (14:36)
[2022-09-08 15:07] LABS: Hematocrit 30.5 % (33.0-51.0); Hemoglobin* 10.2 gm/dL (12.0-16.0); Mean Corpuscular HGB Conc 33 gm/dL (32-36); Mean Corpuscular Hemoglobin 31 pg (26-34); Mean Corpuscular Volume 92 fL (80-100); Platelet Count* 191 K/uL (140-440); White Blood Count* 3.81 K/uL (4.50-11.00)
[2022-09-08 15:18] LABS: Slide Review Reflex No
[2022-09-08 15:23] LABS: Total Protein Urine 23 mg/dL
[2022-09-08 15:24] LABS: Creatinine Urine 34.7 mg/dL
[2022-09-08 15:34] LABS: Alanine Aminotransferase* 37 U/L (4-35); Aspartate Amino Transferase* 33 U/L (12-35); Creatinine* 0.4 mg/dL (0.5-1.5); Estimated Glomerular Filt Rate 136 ml/min
[2022-09-08 15:35] LABS: Blood Urea Nitrogen* 9 mg/dL (5-24)
--- NOTE | 2022-09-08 17:12 | P.OBHP_ITS ---
OB - H&P: HPI Labor/Induction History of Present Illness Time Seen by Provider: 17:13 Date Seen: 09/08/22 Chief Complaint: The patient is a 31 year old 6 para 3023 at 37+5 weeks gestation by early ultrasound, who presents for IOL for atypical pre-eclampsia with severe features. Chief complaint: Maternity Narrative: Collette Oneal is a 31 year old female at 37 weeks 5 days by early ultrasound who presents for induction of labor for atypical preeclampsia with severe features. has been complicated by increasing proteinuria with normal blood pressures and intermittent headache and visual changes. Patient has previously been evaluated by Neurology with normal brain MRI and ophthalmology with no other alternative etiologies for her symptoms identified. Presented to triage today with visual floaters present intermittently in both eyes and subsequent onset of headache not relieved by Tylenol. Preeclampsia labs were obtained and significant for mildly elevated ALT and protein c reatinine ratio of 0.6, increasing from prior value of 0.3. Case was discussed with. Etiology is not carbon paper interleafer with [place] physicians, John Montenegro, who recommends IV magnesium and induction of labor. In addition, has been complicated by single umbilical artery, Graves disease on levothyroxine, history of major depression and history of genital herpes on suppressive Valtrex. Review of Systems Status of ROS: Reports: 10 or more systems reviewed and unremarkable except as noted in History and below Meds Home Medications and Allergies Home Medications Medication Instructions Recorded Confirmed Type levothyroxine 100 mcg tablet 150 mcg PO DAILY 03/21/22 08/26/22 History prenat.vits,danuta,[id number] .Route 04/28/22 History Allergies Allergy/AdvReac Type Severity Reaction Status Date / Time No Known Drug Allergies Allergy Verified 08/01/22 18:42 OB - H&P: Exam Physical Exam: Vital signs: Pulse BP Pulse Ox 102 H 111/68 100 09/08/22 16:54 09/08/22 16:54 09/08/22 14:31 Narrative: General appearance: Well-appearing adult female. Sitting up in hospital bed. Alert, oriented and appropriate. HEENT: EOMI, no conjunctival injection or discharge. No nasal discharge. Mucous membranes moist. Neck: Supple. Cardiovascular: Regular rate and rhythm, no rubs, murmurs or extra heart sounds. Pulmonary: Clear to auscultation bilaterally, no wheezes, rales or rhonchi. Abdomen: Gravid. Soft, mild diffuse tenderness. MSK: Moves all extremities appropriately. Extremities: Warm and well perfused. No lower extremity edema. Neuro: Grossly normal strength and sensation. No focal deficits. Psych: Flat affect. Detailed Labor and Delivery Exam: Dilation (cm): 2 Effacement (%): 60 Cervix position: posterior Consistency: soft Cervical ripeness score: 6 Fetus (Single): Heart Rate Baseline: 140 Monitor Accelerations: Present Monitor Decelerations: None Child Life Therapist Variability: Moderate (6-25) OB - Results Labs Labs: Short CBC 09/08/22 Range/Units 15:00 WBC 3.81 L (4.50-11.00) K/uL Hgb 10.2 L (12.0-16.0) gm/dL Hct 30.5 L (33.0-51.0) % Plt Count 191 (140-440) K/uL BMP 09/08/22 15:00 BUN 9 Creatinine 0.4 L Liver Function 09/08/22 Range/Units 15:00 AST 33 (12-35) U/L ALT 37 H (4-35) U/L OB - Problem Based A/P Additional Plan (1) Severe pre-eclampsia, antepartum: Status: Acute Plan: - IV magnesium - IOL with high dose pitocin - GBS negative - status reassuring - OB, Dr. Chinchilla, aware. No formal consult for now. (2) Two vessel umbilical cord in burger , antepartum: Status: Acute Plan - Peds provider needed for delivery
[2022-09-08] MEDS: LACTATED RINGERS 1000 ML 1,000 ML 75 ML IV (17:23)
[2022-09-08 17:38] LABS: INR 0.89 (0.91-1.10); Prothrombin Time 12.6 Seconds
[2022-09-08 17:39] LABS: Fibrinogen* 386 mg/dL (200-450)
[2022-09-08 18:12] LABS: SARS PCR* Negative SARS-CoV-2 (Negative)
[2022-09-08] MEDS: OXYTOCIN 30 unit/500 ML in NS 30 UNIT/500 ML BAG IVPB (18:31)
[2022-09-09] VITALS (57 sets, daily range): BP systolic 87–139; BP diastolic 48–89; PULSE 64–103; RESP 15–16; TEMP 36.2–36.8; O2SAT 99–100
[2022-09-09] MEDS: ACETAMINOPHEN 500 MG TABLET 1000 MG PO ×3 (01:03→14:28)
--- NOTE | 2022-09-09 04:41 | PM.OBPNL ---
Subjective Time Seen by Provider: 04:41 Date Seen: 09/09/22 Narrative: Patient is rating her pain a 5/10 with contractions. Pitocin is at 19. She continues with headache unrelieved by magnesium and tylenol. Objective Exam: appears uncomfortable. Vital Signs: Last Vital Signs Temp 97.6 F 09/09/22 04:00 Pulse 69 09/09/22 03:58 Resp 16 09/09/22 04:00 BP 99/64 09/09/22 03:58 Pulse Ox 99 09/08/22 17:27 Pelvic Exam Dilation (cm): 2-3 Effacement (%): 80% Station: -1 Comments: Head wel applied Contractions Monitor mode: External Contraction Frequency: 2-3 min Contraction pattern: Regular Contraction intensity: Moderate Pitocin Rate (mU/min): 19 Assessment Assessment: induction ongoing Station: -1 Amniotic Membrane Status: AROM (AROM now of small amount of clear fluid) Status: Category l Heart Rate Baseline: 140 Baby Attendant Variability: Moderate (6-25) Monitor Accelerations: Present Monitor Decelerations: None Plan Plan: - Patient is having IOL for preeclampsia with severe features (Has had proteinura, developed headache, vision changes today). Cancino score was 6 so pitocin was started per protocol. Patient feels contractions are not really increasing in strength. Still 5/10 despite increasing pitocin overnight. We discussed options. She elects for AROM as thish as worked well for her in the past. AROM now of small amount of clear/blood tinged fluid. Patient and baby tolerated well. Will monitor for change in strength of contractions. patient is hoping for epidural. Anticipate . Will have peds at attendence due to magnesium.
[2022-09-09] MEDS: LACTATED RINGERS 1000 ML 1,000 ML 75 ML IV (05:49)
[2022-09-09 09:23] LABS: Hematocrit 33.9 % (33.0-51.0); Hemoglobin* 11.4 gm/dL (12.0-16.0); Mean Corpuscular HGB Conc 34 gm/dL (32-36); Mean Corpuscular Hemoglobin 31 pg (26-34); Mean Corpuscular Volume 91 fL (80-100); Platelet Count* 199 K/uL (140-440); Red Blood Count 3.72 m/uL (4.00-5.20); White Blood Count* 6.75 K/uL (4.50-11.00)
[2022-09-09 09:25] LABS: Slide Review Reflex No
[2022-09-09 09:33] LABS: Alanine Aminotransferase* 37 U/L (4-35); Aspartate Amino Transferase* 35 U/L (12-35); Blood Urea Nitrogen* 6 mg/dL (5-24); Creatinine* 0.4 mg/dL (0.5-1.5); Estimated Glomerular Filt Rate 136 ml/min
[2022-09-09] MEDS: LACTATED RINGERS 1000 ML 1,000 ML 999 ML IV ×2 (10:10→11:01)
[2022-09-09] MEDS: fentaNYL 250 MCG/5 ML inj 100 MCG EPIDURAL (10:15)
[2022-09-09] MEDS: ROPIVACAINE 0.2% 100 ml 100 ML 10 MG EPIDURAL (10:20)
[2022-09-09] MEDS: LIDOCAINE 2% (PF) 5 ML VIAL EPIDURAL (10:22)
--- NOTE | 2022-09-09 10:28 | PM.ANBPRC ---
[facility] Medical History Anemia affecting Graves' disease H. pylori infection Hyperemesis gravidarum Hypothyroidism (acquired) Major depressive disorder Pancytopenia Vitamin D deficiency Surgical History No significant past surgical history Social History Smoking Status: Never smoker Do you use any of these nicotine containing products: None How often do you have a drink containing alcohol: never AUDIT-C Alcohol total score: 0 Non-prescribed substance use: denies use Meds Home Medications and Allergies Home Medications Medication Instructions Recorded Confirmed Type levothyroxine 100 mcg tablet 150 mcg PO DAILY 03/21/22 08/26/22 History prenat.vits,danuta,[id number] .Route 04/28/22 History Allergies Allergy/AdvReac Type Severity Reaction Status Date / Time No Known Drug Allergies Allergy Verified 08/01/22 18:42 Results Labs Labs: Laboratory Results - last 24 hr 09/08/22 09/08/22 09/08/22 14:04 15:00 15:00 WBC 3.81 L RBC 3.30 L Hgb 10.2 L Hct 30.5 L MCV 92 MCH 31 MCHC 33 Plt Count 191 INR Fibrinogen BUN 9 Creatinine 0.4 L Estimated GFR 136 Magnesium AST 33 ALT 37 H Urine Creatinine 34.7 Protein/Creatinin Ratio 0.60 H Urine Total Protein 23 SARS-CoV-2 (PCR) Blood Type Antibody Screen 09/08/22 09/08/22 09/08/22 15:00 15:00 16:51 WBC RBC Hgb Hct MCV MCH MCHC Plt Count INR 0.89 L Fibrinogen 386 BUN Creatinine Estimated GFR Magnesium AST ALT Urine Creatinine Protein/Creatinin Ratio Urine Total Protein SARS-CoV-2 (PCR) Negative SARS-CoV-2 Blood Type O Positive Antibody Screen NEGATIVE 09/09/22 09/09/22 09/09/22 08:55 08:55 08:55 WBC 6.75 RBC 3.72 L Hgb 11.4 L Hct 33.9 MCV 91 MCH 31 MCHC 34 Plt Count 199 INR Fibrinogen BUN 6 Creatinine 0.4 L Estimated GFR 136 Magnesium 6.0 H* AST 35 ALT 37 H Urine Creatinine Protein/Creatinin Ratio Urine Total Protein SARS-CoV-2 (PCR) Blood Type Antibody Screen Vital Signs Vital Signs: Last Vital Signs Temp 97.4 F L 09/09/22 09:50 Pulse 85 09/09/22 10:27 Resp 16 09/09/22 09:50 BP 92/53 L 09/09/22 10:27 Pulse Ox 100 09/09/22 10:27 Weight: 67.4 kg Anesthesia Procedures Epidural Insertion Patient Location: OB Start Time: :50 Stop Time: 10:50 Start Date: 09/09/22 Stop Date: 09/09/22 Reason for Block: primary anesthetic Patient Position: sitting Performed By: Zhou Banks Preanesthetic Checklist: IV checked, risks and benefits discussed, surgical consent, monitors and equipment checked, pre-op evaluation, timeout performed and anesthesia consent Prep: chlorhexidine gluconate Monitoring: blood pressure monitoring, tacking machine operator, continuous pulse oximetry and heart rate Approach: midline Vertebral Space: lumbar (1-5) Epidural Technique: LUCINA saline Needle Type: Tuohy needle Injection Technique: continuous catheter Needle gauge: 17 Needle Length (cm): 10 cm Needle Insertion Depth (cm): 5 Catheter Gauge: 19 Catheter Type: multi-orifice Catheter at skin depth (cm): 10 Test Dose Result: negative and lidocaine 1.5% with epinephrine 1 to 200,000 Events: other
[2022-09-09] MEDS: PHENYLEPHRINE 100 MCG/ML SYRINGE IVP ×2 (10:33→11:06)
[2022-09-09] MEDS: miSOPROStoL 800 MCG/4 TABLET PR (12:30)
[2022-09-09] MEDS: CARBOPROST TROMETHAMINE 250 MCG/ML INJ IM (12:35)
[2022-09-09] MEDS: ONDANSETRON 2 MG/ML inj 4 MG IV (12:46)
[2022-09-09] MEDS: TRANEXAMIC ACID 100 MG/ML INJ 1000 MG IV (12:48)
--- NOTE | 2022-09-09 13:07 | P.OBPRC_ITS ---
Procedure Delivery date: 09/09/22 Procedure Done: Global Procedure Details: Patient is a who presented to Labor and delivery with headache and vision changes. Her was complicated by untreated depression, hypothyroidism, anemia, headache, proteinuria. She had intermittent headache over the past few weeks and proteinuria. Headache had previously resolved with treating sinusitis and MRI from neuro consultation was normal. Upon presentation, Dr. Brooks spoke to perinatology who recommended IOL for atypical preeclampsia with severe features given her vision changes, returned yap, proteinuria. Patient's baker score was 6, so pitocin induction was started. Magnesium was started per protocol for preeclampsia with severe features. Patient progressed to a good contraction pattern, but did not make significant cervical change. AROM was completed at 0429 and patient progressed more quickly. She received epidural for anesthesia. Became complete at 1215. She pushed very effectively delivering a viable female over intact perineum at 1219. Tight nuchal cord was delivered through then reduced. Baby was delivered onto maternal abdomen. Cord was clamped x 2 and cut by FOB who was in attendance. Pitocin and rectal cytotec were administered given history of hemorrhage. Placenta delivered sponaneously at 1226. Patient had uterine atony, so hemabate, TXA were also administered while applying fundal massage. Bleeding became appropriate. Patient had small 1st degree laceration perineum that was repaired with 3-[address] Rodriges attended delivery for pediatric provider given magnesium. Please see his note and H&P for details. Baby had apgars of 7 and 9 at 1 and 5 minutes respectively and weighed [id number]. Baby and mom are doing well at th etime of this note. QBL is 300 Mls. Sponge and sharp count are correct. Events: Pre-Eclampsia, Labor Induction and Other (single umbilical artery) Intrapartal Events: Labor Induction and Excessive Bleeding Induction method: per pitocin protocol Delivery augmentation: rupture of membranes Delivery monitor: external FHT Route of delivery: Laceration description: Perineal - 1st Degree Delivery repair: Vicryl Estimated blood loss (mL): 300 Anesthesia type: Epidural Disposition: floor [place] Infant Gender: Female presentation: vertex Placental Delivery Description: Spontaneous Cord Description: 2 Vessels and Nuchal Cord
[2022-09-09] MEDS: LOPERAMIDE HCL 2 MG CAPSULE 4 MG PO (14:28)
[2022-09-09] MEDS: IBUPROFEN 600 MG TABLET PO (15:09)
[2022-09-09] MEDS: OXYCODONE 5 MG TABLET PO (16:25)
--- NOTE | 2022-09-09 16:56 | CRLHL7_ITS ---
For Patients: As a result of the Century Cures Act, medical imaging exams and procedure reports are released immediately into your electronic medical record. You may view this report before your referring provider. If you have questions, please contact your health care provider. Indication: Pelvic pain 4 hours post delivery. Technique: Trans abdominal ultrasound of the pelvis. Comparison: None. Findings/Impression: Urinary bladder is distended. Post gravid appearance of the uterus where visualized. Ovaries are not definitively visualized. No discrete areas free-fluid where visualized. Dictated by Salvador Harris MD @ 09/09/2022 8:42:46 PM (Electronically Signed)
--- NOTE | 2022-09-09 17:01 | PM.OBPNVD1 ---
OB - PN:Subj Subjective Time Seen by Provider: 16:50 Date Seen: 09/09/22 Interval history: I was called to the room because of sudden onset of severe suprapubic pain about 4 hours post delivery. Vaginal delivery was uncomplicated. No hemorrhage. No severe pain initially. She had gone to the bathroom and urinated a small amount a little while ago and sat down. Within 5 minutes after sitting down, she developed an intense suprapubic pain that was worse with any movement. Prior to that, she had multiple episodes of urination since delivery resulting in more than 800 cc out. OB - PN: Obj Exam Physical Exam: Vital signs: Temp Pulse Resp BP Pulse Ox 97.6 F 69 16 107/72 100 09/09/22 16:06 09/09/22 16:06 09/09/22 16:06 09/09/22 16:06 09/09/22 12:47 Constitutional: Comments: Lying in bed appearing uncomfortable Routine Abdominal Exam: Comments: Abdomen is soft and nontender in the RUQ and LUQ. She is very tender to palpation over the fundus and to a lesser degree in the RLQ and LLQ. No percussion tenderness. Fundus is firm but very tender. Routine Exam: Comments: Speculum and digital exam performed with RN present and with patient approval. No significant blood in vaginal vault. Cervix does not appear significantly edematous. No exquisite tenderness in vaginal vault. OB - PN: Obj Data Labs Labs: Laboratory Results - last 24 hr 09/08/22 09/08/22 09/08/22 15:00 15:00 16:51 WBC RBC Hgb Hct MCV MCH MCHC Plt Count INR 0.89 L Fibrinogen 386 BUN Creatinine Estimated GFR Magnesium AST ALT SARS-CoV-2 (PCR) Negative SARS-CoV-2 Blood Type O Positive Antibody Screen NEGATIVE 09/09/22 09/09/22 09/09/22 08:55 08:55 08:55 WBC 6.75 RBC 3.72 L Hgb 11.4 L Hct 33.9 MCV 91 MCH 31 MCHC 34 Plt Count 199 INR Fibrinogen BUN 6 Creatinine 0.4 L Estimated GFR 136 Magnesium 6.0 H* AST 35 ALT 37 H SARS-CoV-2 (PCR) Blood Type Antibody Screen OB - PN: A/P Vaginal Delivery Assessment and Plan (1) Severe pre-eclampsia, antepartum: Status: Acute Assessment and Plan: Abdominal pain post delivery (2) Two vessel umbilical cord in burger , antepartum: Status: Acute Plan Concern for hematoma vs overfull bladder. Patient initially declined catheter and has been putting out adequate urine since delivery. Pelvic ultrasound ordered and prelim suggested a large bladder. Elected to place goncalves catheter with patient permission and 1500 cc of clear urine came out before we clamped the tubing. She had complete resolution of her pain and no further abdominal tenderness on exam after the catheter was placed. Will unclamp again in about 30 minutes to try and prevent a vasovagal episode. Plan to d/c catheter either overnight or in the morning.
[2022-09-09] MEDS: fentaNYL 100 MCG/2 ML inj 50 MCG IVP (17:18)
[2022-09-09 19:16] LABS: Basophils Absolute Auto 0.01 K/uL (0.00-0.30); Basophils Percent Auto 0.1 % (0.0-3.0); Eosinophils Absolute Auto 0.01 K/uL (0.00-0.50); Eosinophils Percent Auto 0.1 % (0.0-7.0); Hemoglobin* 9.6 gm/dL (12.0-16.0); Immature Granulocytes Abs Auto 0.02 K/uL (0.00-0.30); Immature Granulocytes Pct Auto 0.2 %; Lymphocytes Percent Auto 9.5 % (20-44); Mean Corpuscular HGB Conc 34 gm/dL (32-36); Mean Corpuscular Hemoglobin 31 pg (26-34); Mean Corpuscular Volume 91 fL (80-100); Monocytes Percent Auto 5.2 % (0.0-11.0); Neutrophils Percent Auto 84.9 % (42.0-72.0); Platelet Count* 185 K/uL (140-440); RDW Coefficient of Variation % 12.9 % (11.5-15.5); Red Blood Count 3.07 m/uL (4.00-5.20); Slide Review Reflex No; White Blood Count* 9.76 K/uL (4.50-11.00)
[2022-09-09 19:33] LABS: Appearance Urine Clear (Clear); Bilirubin Urine Negative (Negative); Blood Urine 2+ (Negative); Color Urine Yellow (Yellow); Glucose Urine Negative (Negative); Ketones Urine Negative (Negative); Leukocyte Esterase Urine Negative (Negative); Nitrite Urine Negative (Negative); Protein Urine Negative (Negative); Specific Gravity Urine 1.025 (1.000-1.030); Urobilinogen Urine 0.2 (0.2-1.0); pH Urine 6.5 (5.0-8.5)
[2022-09-09 19:35] LABS: Albumin* 2.6 g/dL (3.3-5.0); Chloride* 106 mmol/L (96-114)
[2022-09-09 19:36] LABS: Potassium* 3.7 mmol/L (3.6-5.1); Sodium* 131 mmol/L (135-149)
[2022-09-09 19:38] LABS: Bilirubin Total* 0.7 mg/dL (0.1-1.5); Carbon Dioxide* 22 mmol/L (20-32); Creatinine* 0.5 mg/dL (0.5-1.5); Estimated Glomerular Filt Rate 129 ml/min
[2022-09-09 19:39] LABS: Alanine Aminotransferase* 34 U/L (4-35); Alkaline Phosphatase* 134 U/L (40-150); Aspartate Amino Transferase* 35 U/L (12-35); Blood Urea Nitrogen* 5 mg/dL (5-24); Calcium* 6.2 mg/dL (8.4-10.6); Glucose* 102 mg/dL (60-115); Total Protein* 5.5 g/dL (6.0-8.3)
[2022-09-09 19:52] LABS: Bacteria Urine Moderate
[2022-09-10] VITALS (11 sets, daily range): BP systolic 90–110; BP diastolic 57–75; PULSE 64–78; RESP 14–17; TEMP 36.3–36.9; O2SAT 97–100
[2022-09-10] MEDS: IBUPROFEN 600 MG TABLET PO ×3 (01:08→21:07)
[2022-09-10] MEDS: LACTATED RINGERS 1000 ML 1,000 ML 999 ML IV (01:08)
[2022-09-10 06:28] LABS: Magnesium* 7.2 mg/dL (1.5-2.6)
[2022-09-10 07:00] LABS: Albumin* 2.3 g/dL (3.3-5.0); Chloride* 107 mmol/L (96-114); Potassium* 3.8 mmol/L (3.6-5.1); Sodium* 131 mmol/L (135-149)
[2022-09-10 07:03] LABS: Alanine Aminotransferase* 35 U/L (4-35); Alkaline Phosphatase* 120 U/L (40-150); Aspartate Amino Transferase* 43 U/L (12-35); Bilirubin Total* 0.5 mg/dL (0.1-1.5); Blood Urea Nitrogen* 3 mg/dL (5-24); Carbon Dioxide* 22 mmol/L (20-32); Creatinine* 0.5 mg/dL (0.5-1.5); Estimated Glomerular Filt Rate 129 ml/min; Glucose* 74 mg/dL (60-115); Total Protein* 5.1 g/dL (6.0-8.3)
--- NOTE | 2022-09-10 07:04 | PM.OBPNVD1 ---
OB - PN:Subj Subjective Time Seen by Provider: 07:04 Date Seen: 09/10/22 Interval history: I was called to the room because of sudden onset of severe suprapubic pain about 4 hours post delivery. Vaginal delivery was uncomplicated. No hemorrhage. No severe pain initially. She had gone to the bathroom and urinated a small amount a little while ago and sat down. Within 5 minutes after sitting down, she developed an intense suprapubic pain that was worse with any movement. Prior to that, she had multiple episodes of urination since delivery resulting in more than 800 cc out. OB - PN: Obj Exam Physical Exam: Vital signs: Temp Pulse Resp BP Pulse Ox O2 Del Method 97.6 F 64 14 92/57 L 99 09/10/22 05:00 09/10/22 05:00 09/10/22 05:00 09/10/22 05:00 09/10/22 05:00 09/10/22 05:00 OB - PN: Obj Data Labs Labs: Laboratory Results - last 24 hr 09/09/22 09/09/22 09/09/22 08:55 08:55 08:55 WBC 6.75 RBC 3.72 L Hgb 11.4 L Hct 33.9 MCV 91 MCH 31 MCHC 34 RDW Coeff of [place] Plt Count 199 Neut % (Auto) Lymph % (Auto) [place] % (Auto) Eos % (Auto) Baso % (Auto) Neut # (Auto) Lymph # (Auto) [place] # (Auto) Eos # (Auto) Baso # (Auto) Sodium Potassium Chloride Carbon Dioxide BUN 6 Creatinine 0.4 L Estimated GFR 136 Glucose Calcium Magnesium 6.0 H* Total Bilirubin AST 35 ALT 37 H Alkaline Phosphatase Total Protein Albumin Urine Color Urine Appearance Urine pH Ur Specific [place] Urine Protein Urine Glucose (UA) Urine Ketones Urine Blood Urine Nitrite Urine Bilirubin Urine Urobilinogen Ur Leukocyte Esterase Urine RBC Urine WBC Ur Squamous Epith Cells Urine Bacteria 09/09/22 09/09/22 09/09/22 18:56 18:58 18:58 WBC 9.76 RBC 3.07 L Hgb 9.6 L Hct 28.0 L MCV 91 MCH 31 MCHC 34 RDW Coeff of [place] 12.9 Plt Count 185 Neut % (Auto) 84.9 H Lymph % (Auto) 9.5 L [place] % (Auto) 5.2 Eos % (Auto) 0.1 Baso % (Auto) 0.1 Neut # (Auto) 8.30 H Lymph # (Auto) 0.90 [place] # (Auto) 0.50 Eos # (Auto) 0.01 Baso # (Auto) 0.01 Sodium 131 L Potassium 3.7 Chloride 106 Carbon Dioxide 22 BUN 5 Creatinine 0.5 Estimated GFR 129 Glucose 102 Calcium 6.2 L Magnesium Total Bilirubin 0.7 AST 35 ALT 34 Alkaline Phosphatase 134 Total Protein 5.5 L Albumin 2.6 L Urine Color Yellow Urine Appearance Clear Urine pH 6.5 Ur Specific [place] 1.025 Urine Protein Negative Urine Glucose (UA) Negative Urine Ketones Negative Urine Blood 2+ A Urine Nitrite Negative Urine Bilirubin Negative Urine Urobilinogen 0.2 Ur Leukocyte Esterase Negative Urine RBC 2-5 A Urine WBC 2-5 Ur Squamous Epith Cells None Urine Bacteria Moderate A 09/10/22 09/10/22 05:55 05:55 WBC RBC Hgb 8.0 L Hct MCV MCH MCHC RDW Coeff of [place] Plt Count Neut % (Auto) Lymph % (Auto) [place] % (Auto) Eos % (Auto) Baso % (Auto) Neut # (Auto) Lymph # (Auto) [place] # (Auto) Eos # (Auto) Baso # (Auto) Sodium Potassium Chloride Carbon Dioxide BUN Creatinine Estimated GFR Glucose Calcium Magnesium 7.2 H* Total Bilirubin AST ALT Alkaline Phosphatase Total Protein Albumin Urine Color Urine Appearance Urine pH Ur Specific [place] Urine Protein Urine Glucose (UA) Urine Ketones Urine Blood Urine Nitrite Urine Bilirubin Urine Urobilinogen Ur Leukocyte Esterase Urine RBC Urine WBC Ur Squamous Epith Cells Urine Bacteria OB - PN: A/P Vaginal Delivery Assessment and Plan (1) Severe pre-eclampsia, antepartum: Problem details: Patient has atypical preeclampsia with severe features. Received magnesium for labor and 20 hours . (Stopped early for clinical signs of toxicity and magnesium level of 7.2). Headache and vision changes have resolved. No elevated BP. History of proteniuria. Status: Acute (2) Two vessel umbilical cord in burger , antepartum: Problem details: Baby did well, s/p delivery. AGA Status: Resolved
[2022-09-10 07:14] LABS: Calcium* 5.9 mg/dL (8.4-10.6)
[2022-09-10] MEDS: CALCIUM CARBONATE 500 MG CHEW PO (08:29)
[2022-09-10] MEDS: ACETAMINOPHEN 500 MG TABLET 1000 MG PO (13:01)
[2022-09-10] MEDS: SIMETHICONE 80 MG TAB.CHEW PO (13:02)
[2022-09-10 15:07] LABS: Eosinophils Absolute Auto 0.01 K/uL (0.00-0.50); Eosinophils Percent Auto 0.2 % (0.0-7.0); Hematocrit 25.9 % (33.0-51.0); Hemoglobin* 8.9 gm/dL (12.0-16.0); Immature Granulocytes Abs Auto 0.04 K/uL (0.00-0.30); Immature Granulocytes Pct Auto 0.8 %; Lymphocytes Absolute Auto 1.13 K/uL (0.90-2.90); Lymphocytes Percent Auto 23.2 % (20-44); Mean Corpuscular HGB Conc 34 gm/dL (32-36); Mean Corpuscular Hemoglobin 32 pg (26-34); Mean Corpuscular Volume 92 fL (80-100); Monocytes Percent Auto 5.7 % (0.0-11.0); Neutrophils Absolute Auto 3.41 K/uL (1.7-7.0); Neutrophils Percent Auto 70.1 % (42.0-72.0); Platelet Count* 162 K/uL (140-440); RDW Coefficient of Variation % 13.1 % (11.5-15.5); Red Blood Count 2.81 m/uL (4.00-5.20); White Blood Count* 4.87 K/uL (4.50-11.00)
[2022-09-10 15:18] LABS: Albumin* 2.3 g/dL (3.3-5.0); Chloride* 108 mmol/L (96-114); Potassium* 3.6 mmol/L (3.6-5.1); Sodium* 135 mmol/L (135-149)
[2022-09-10 15:19] LABS: Slide Review Reflex No
[2022-09-10 15:20] LABS: Creatinine* 0.6 mg/dL (0.5-1.5); Estimated Glomerular Filt Rate 124 ml/min
[2022-09-10 15:21] LABS: Alanine Aminotransferase* 41 U/L (4-35); Alkaline Phosphatase* 107 U/L (40-150); Aspartate Amino Transferase* 50 U/L (12-35); Bilirubin Total* 0.4 mg/dL (0.1-1.5); Blood Urea Nitrogen* 7 mg/dL (5-24); Calcium* 6.8 mg/dL (8.4-10.6); Carbon Dioxide* 25 mmol/L (20-32); Glucose* 96 mg/dL (60-115); Magnesium* 3.7 mg/dL (1.5-2.6)
--- NOTE | 2022-09-10 18:02 | PM.OBPNVD1 ---
OB - PN:Subj Subjective Time Seen by Provider: 06:44 Date Seen: 09/10/22 Interval history: Patient is POD 1 s/p , complicated for IOL for atypical preeclampsia with severe features. She had severe pelvic pain last evening and found to have large amount of retained urine after placement of goncalves catheter. Pain resolved. Patient had had headache and vision changes overnight. Called to bedside for patient's Lethargy. Patient reports dizziness, feeling fatigued this morning. She is having blurry vision in that it is difficult to focus. No headache. She has been bottle feeding her baby. She has no pelvic pain. Tolerating diet. status: bottle and doing well [place] feeding status: breast and bottle feeding OB - PN: Obj Exam Physical Exam: Vital signs: Temp Pulse Resp BP Pulse Ox O2 Del Method 97.5 F L 78 16 102/69 98 09/10/22 16:00 09/10/22 16:00 09/10/22 16:00 09/10/22 16:00 09/10/22 16:00 09/10/22 16:00 Constitutional: Constitutional: no acute distress and thin Comments: wakes to my entrance but appears very fatigued. Answers questions appropriately. Routine HEENT Exam: Head: Present atraumatic Routine Chest/Breast/Axilla Exam: Breast: Absent erythema Routine Respiratory Exam: Respiratory: Present CTA bilaterally; Absent crackles or rales Routine Cardiovascular Exam: Cardiovascular: Present RRR, S1 and S2; Absent murmur Routine Abdominal Exam: Fundus: Present firm Routine Neurological Exam: Neurological: Present oriented X3 Detailed Neurological Exam: Coma Scale: Eye Opening: To sound (3) Verbal Response: Orientated (5) Motor Response: Obey commands (6) [place] Coma Scale Total: 14 Detailed Psychiatric Exam: Mood and affect: Present flat OB - PN: Obj Data Labs Labs: Laboratory Results - last 24 hr 09/08/22 09/09/22 09/09/22 15:00 18:56 18:58 WBC 9.76 RBC 3.07 L Hgb 9.6 L Hct 28.0 L MCV 91 MCH 31 MCHC 34 RDW Coeff of [place] 12.9 Plt Count 185 Neut % (Auto) 84.9 H Lymph % (Auto) 9.5 L [place] % (Auto) 5.2 Eos % (Auto) 0.1 Baso % (Auto) 0.1 Neut # (Auto) 8.30 H Lymph # (Auto) 0.90 [place] # (Auto) 0.50 Eos # (Auto) 0.01 Baso # (Auto) 0.01 Sodium Potassium Chloride Carbon Dioxide BUN Creatinine Estimated GFR Glucose Calcium Magnesium Total Bilirubin AST ALT Alkaline Phosphatase Total Protein Albumin Urine Color Yellow Urine Appearance Clear Urine pH 6.5 Ur Specific [place] 1.025 Urine Protein Negative Urine Glucose (UA) Negative Urine Ketones Negative Urine Blood 2+ A Urine Nitrite Negative Urine Bilirubin Negative Urine Urobilinogen 0.2 Ur Leukocyte Esterase Negative Urine RBC 2-5 A Urine WBC 2-5 Ur Squamous Epith Cells None Urine Bacteria Moderate A Blood Type O Positive Antibody Screen NEGATIVE Crossmatch ([facility]) See Detail 09/09/22 09/10/22 09/10/22 18:58 05:55 05:55 WBC RBC Hgb 8.0 L Hct MCV MCH MCHC RDW Coeff of [place] Plt Count Neut % (Auto) Lymph % (Auto) [place] % (Auto) Eos % (Auto) Baso % (Auto) Neut # (Auto) Lymph # (Auto) [place] # (Auto) Eos # (Auto) Baso # (Auto) Sodium 131 L 131 L Potassium 3.7 3.8 Chloride 106 107 Carbon Dioxide 22 22 BUN 5 3 L Creatinine 0.5 0.5 Estimated GFR 129 129 Glucose 102 74 Calcium 6.2 L 5.9 L* Magnesium 7.2 H* Total Bilirubin 0.7 0.5 AST 35 43 H ALT 34 35 Alkaline Phosphatase 134 120 Total Protein 5.5 L 5.1 L Albumin 2.6 L 2.3 L Urine Color Urine Appearance Urine pH Ur Specific [place] Urine Protein Urine Glucose (UA) Urine Ketones Urine Blood Urine Nitrite Urine Bilirubin Urine Urobilinogen Ur Leukocyte Esterase Urine RBC Urine WBC Ur Squamous Epith Cells Urine Bacteria Blood Type Antibody Screen Crossmatch ([facility]) 09/10/22 09/10/22 14:42 14:42 WBC 4.87 RBC 2.81 L Hgb 8.9 L Hct 25.9 L MCV 92 MCH 32 MCHC 34 RDW Coeff of [place] 13.1 Plt Count 162 Neut % (Auto) 70.1 Lymph % (Auto) 23.2 [place] % (Auto) 5.7 Eos % (Auto) 0.2 Baso % (Auto) 0.0 Neut # (Auto) 3.41 Lymph # (Auto) 1.13 [place] # (Auto) 0.30 Eos # (Auto) 0.01 Baso # (Auto) 0.00 Sodium 135 Potassium 3.6 Chloride 108 Carbon Dioxide 25 BUN 7 Creatinine 0.6 Estimated GFR 124 Glucose 96 Calcium 6.8 L Magnesium 3.7 H Total Bilirubin 0.4 AST 50 H ALT 41 H Alkaline Phosphatase 107 Total Protein 5.0 L Albumin 2.3 L Urine Color Urine Appearance Urine pH Ur Specific [place] Urine Protein Urine Glucose (UA) Urine Ketones Urine Blood Urine Nitrite Urine Bilirubin Urine Urobilinogen Ur Leukocyte Esterase Urine RBC Urine WBC Ur Squamous Epith Cells Urine Bacteria Blood Type Antibody Screen Crossmatch ([facility]) OB - PN: A/P Vaginal Delivery Assessment and Plan (1) Severe pre-eclampsia, antepartum: Problem details: Patient has atypical preeclampsia with severe features. Unfortunately, clinically seems toxic on mag, level is 7.2. Calcium less than 6. Given this, we elected to stop magnesium 2.5 hours before the 24 hour mandi . headache had resolved, no elevated BP. I suspect vision may be due to magnesium. Status: Acute Assessment and Plan: - continue preeclampsia assessments - follow up labs in am. - plan to discharge to home tomorrow if doing well. (2) Two vessel umbilical cord in burger , antepartum: Problem details: Baby did well, s/p delivery. AGA Status: Acute Assessment and Plan: - placenta sent to path, pending (3) anemia: Problem details: hemoglobin dropped to 8.0 after delivery, QBL was 300 Mls . Symptomatic with movement. Transfused 1 unit PRBC today. Now 8.9 and dizziness improved. Status: Acute Assessment and Plan: - continue to monitor blood loss (4) (normal spontaneous vaginal delivery): Problem details: day #1. Status: Acute Assessment and Plan: - routine cares (5) Urinary retention with incomplete bladder emptying: Problem details: s/p urinary retention after delivery with >1500 out. Pelvic pain resolved. Status: Acute Assessment and Plan: - Plan to remove urinary catheter after PRBC in hopes that she will be less dizzy and able to ambulate well. - monitor closely for recurrent retention. (6) Hypocalcemia: Problem details: Calcium level 5.8 today, likely due to magnesium infusion. Given oral tums. Recheck This afternoon was 6.8 Status: Acute Assessment and Plan: - continue to monitor Plan day: 1 Plan: routine care
[2022-09-11 00:30] VITALS: BP 104/68; PULSE 72; RESP 15; TEMP 36.7; O2SAT 98
[2022-09-11 05:04] LABS: Hematocrit 26.8 % (33.0-51.0); Mean Corpuscular HGB Conc 34 gm/dL (32-36); Mean Corpuscular Hemoglobin 31 pg (26-34); Mean Corpuscular Volume 92 fL (80-100); Platelet Count* 154 K/uL (140-440); White Blood Count* 5.43 K/uL (4.50-11.00)
[2022-09-11 05:12] LABS: Slide Review Reflex No
[2022-09-11 05:18] LABS: Aspartate Amino Transferase* 37 U/L (12-35); Creatinine* 0.6 mg/dL (0.5-1.5); Estimated Glomerular Filt Rate 124 ml/min
[2022-09-11 05:19] LABS: Alanine Aminotransferase* 36 U/L (4-35); Blood Urea Nitrogen* 12 mg/dL (5-24)
--- NOTE | 2022-09-11 07:04 | P.DS_ITS ---
DS: Providers Provider Time Seen by Provider: 07:06 Date Seen: 09/11/22 Date of admission: 09/08/22 17:12 Primary care physician: Anastasiia Penny DO Admitting Clinician: Nadine Higgins MD Attending Physician on discharge: Nadine Higgins MD Date of Discharge: 09/11/22 DS: Diagnosis Discharge Diagnosis (1) (normal spontaneous vaginal delivery): Status: Acute Problem details: Had 300 QBL, small 1st degree laceration (2) Severe pre-eclampsia, antepartum: Status: Acute Problem details: Patient has atypical preeclampsia with severe features. Received magnesium for labor and 20 hours . (Stopped early for clinical signs of toxicity and magnesium level of 7.2). Headache and vision changes have resolved. No elevated BP. History of proteniuria. (3) Two vessel umbilical cord in burger , antepartum: Status: Acute Problem details: Baby did well, s/p delivery. AGA (4) Hypocalcemia: Status: Acute Problem details: Likely 2/2 to magnesium infusion, resolved after stopping infusion. (5) Urinary retention with incomplete bladder emptying: Status: Acute Problem details: s/p urinary retention after delivery with >1500 out. Pelvic pain resolved. Now voiding well. (6) anemia: Status: Acute Problem details: hemoglobin dropped to 8.0 after delivery, QBL was 300 Mls . Transfused 1 unit PRBC 09/10/22. Now 9.0 at discharge, doing well. Will start oral iron. Exam 2 Const: Vital Signs, click to edit/add: Vital Signs - 24 hr 09/10/22 07:30 09/10/22 09:42 09/10/22 10:07 Temperature 97.8 F 97.4 F L 98.4 F Pulse Rate 70 71 Pulse Rate [Left P ulse Oximeter] 64 Respiratory Rate 16 16 16 Blood Pressure 102/70 94/62 Blood Pressure [Le ft Arm] 90/64 Pulse Oximetry 100 100 98 Oxygen Delivery Me thod Room Air 09/10/22 10:50 09/10/22 11:36 09/10/22 12:08 Temperature 98.1 F 98.3 F 98.3 F Pulse Rate 68 74 67 Pulse Rate [Left P ulse Oximeter] Respiratory Rate 16 16 16 Blood Pressure 95/66 92/60 102/70 Blood Pressure [Le ft Arm] Pulse Oximetry 99 97 98 Oxygen Delivery Me thod 09/10/22 12:14 09/10/22 16:00 09/10/22 20:00 Temperature 98.3 F 97.5 F L 98.2 F Pulse Rate Pulse Rate [Left P ulse Oximeter] 68 78 74 Respiratory Rate 16 16 15 Blood Pressure Blood Pressure [Le ft Arm] 102/70 102/69 110/75 Pulse Oximetry 98 98 99 Oxygen Delivery Me thod Room Air Room Air Room Air 09/11/22 00:30 Temperature 98.0 F Pulse Rate Pulse Rate [Left P ulse Oximeter] 72 Respiratory Rate 15 Blood Pressure Blood Pressure [Le ft Arm] 104/68 Pulse Oximetry 98 Oxygen Delivery Me thod Room Air Documenting provider has reviewed patient's vital signs: yes Common normals: no apparent distress and oriented x3 General appearance: cooperative and comfortable HENMT: Common normals: normocephalic Head and scalp: normocephalic Resp: Common normals: normal respiratory effort and clear to auscultation bilaterally Auscultation: clear to auscultation bilaterally Cardio: Common normals: regular rate, regular rhythm, S1 normal heart sound, S2 normal heart sound and no murmurs Rate: regular rate Rhythm: regular rhythm Heart sounds: S1 normal and S2 normal : Uterus: 3/U Uterus palpation: uterus nontender Extremity: Common normals: normal to inspection Neuro: Common normals: oriented x3 OB - DS: Summary Hospital Course Hospital Course: The patient is a 31 year old G 5 P 4 at 37w6d gestation that was admitted to the Center on 09/08/22 for Preeclampsia with severe features (atypical, given no elevated BPs). She had an uncomplicated Vaginal delivery. She delivered a viable female infant. She is breast and bottle feeding. She did have anemia after QBL of 300 (treated with cytotec, pitocin, TXA and hemabate). She had urinary retention requiring a goncalves catheter . She did have magnesium for 21 hours after delivery, but then it was stopped due to clinical magnesium toxicity and level of 7.2. She also had hypocalcemia that improved after stopping mag infusion and supplementing with oral calcium. She was decker sfused 1 unit PRBC due to dizziness with hemoglobin of 8.0. She is improving, feeling much better off magnesium and now with hemoglobin of 9.0. She is voiding without difficulty, bleeding has been appropriate. Peripartum Data delivery method: Vaginal Laceration description: Perineal - 1st Degree complications: uterine atony and other (urinary retention) [place] Infant Gender: Female Infant Discharge Plan: Home Time Spent with Patient Time attestation: Total time spent providing and/or coordinating discharge services: Discharge Plan Discharge Disposition: Home, Self-Care Date of Admission: 09/08/22 17:12 Attending Provider on Discharge: Nadine Higgins Primary Care Provider: Anastasiia Penny Condition: Stable Anticipated Discharge Date/Time: 09/11/22 10:00 Discharge Medications: Continued levothyroxine 100 mcg tablet 150 mcg PO DAILY Label Comments: TAKE 1 TABLET BY MOUTH BEFORE BREAKFAST. prenat.vits,danuta,[id number] .Route Discharge Orders: Discharge Order (Routine); Ordered 09/11/22 Ordered By: Nadine Higgins Patient Education: OB Vaginal/Bottle Feeding Activity Level: Activity as Tolerated Activity Detail: Pelvic rest, nothing in the vagina for 6 weeks (no intercourse, tampons, douching) Discharge Diet: Regular Diet Detail: high iron diet Follow Up Appointments: Anastasiia Penny DO [Primary Care Provider] - Nadine Higgins MD [Staff Physician] - (6 weeks . We will check BP at baby's appointments) Forms: [employer] Info Instructions Discharge Comments: please continue to monitor for headache, vision changes, right upper quadrant pain, blood pressure elevations [id number]
[2022-09-11 07:13] VITALS: BP 100/66; PULSE 58; RESP 15; TEMP 36.7; O2SAT 98
[2022-09-11] MEDS: DOCUSATE SODIUM 100 MG CAPSULE PO (07:18)
[2022-09-11] MEDS: IBUPROFEN 600 MG TABLET PO (07:18)
[2022-09-11 07:30] VITALS: BP 118/79; PULSE 62; RESP 16; TEMP 36.3; O2SAT 99
== END 2022-09-11 10:00 | disposition home or self-care (01) | DRG 560 ==
LOC: OB OUT 17:12 → OB 17:13
PROVIDERS: Family Medicine; Surgery; Admitting Provider Obstetrics & Gynecology; PCP Family Medicine; Visit Provider Family Medicine
DX: O14.14 Severe pre-eclampsia complicating childbirth (principal); Z37.0 Single live birth; R33.9 Retention of urine, unspecified; E83.51 Hypocalcemia; O99.02 Anemia complicating childbirth; D64.9 Anemia, unspecified; O62.2 Other uterine inertia; O70.0 First degree perineal laceration during delivery; R10.2 Pelvic and perineal pain; R42 Dizziness and giddiness; O99.344 Other mental disorders complicating childbirth; F32.9 Major depressive disorder, single episode, unspecified; O98.32 Other infections with a predominantly sexual mode of transmission complicating childbirth; A60.00 Herpesviral infection of urogenital system, unspecified; O99.284 Endocrine, nutritional and metabolic diseases complicating childbirth; E05.00 Thyrotoxicosis with diffuse goiter without thyrotoxic crisis or storm; E03.9 Hypothyroidism, unspecified; Z3A.37 37 weeks gestation of pregnancy
CPT/HCPCS: 01967; 36415; 36430; 76857; 80053; 81003; 81015; 82565; 82570; 83735; 84156; 84450; 84460; 84520; 85018; 85025; 85027; 85384; 85610; 86850; 86900; 86901; 86922; 87086; 87635; 88307; A9270; J2370; J2405; J2795; J3010; J3475; J7120; P9016

== ENCOUNTER 2022-10-26 12:41 | Emergency (ER) | payer BC, SELFPAY ==
[2022-10-26 12:46] VITALS: BP 129/89; PULSE 76; RESP 18; TEMP 36.9; O2SAT 100; BMI 25.2
--- NOTE | 2022-10-26 13:18 | ED.GENADULT ---
HPI - General Adult General Chief complaint: Unspecified Complaint, Adult Stated complaint: hands and feet turning purple RT leg going numb Time Seen by Provider: 10/26/22 12:50 History of Present Illness HPI narrative: This 31-year-old female comes in reporting tingling in her right leg for the past 3 or 4 days. She states that it has been present since she had a Nexplanon inserted in her arm. She does not describe any injury event and does not have any weakness. She does have sensation in the right leg but states it is a tingling sensation. This sensation extends throughout her whole right leg. She does not report any back pain. She did deliver a baby a couple months ago. She also is reporting some episodes of her hands getting white and then turning reddish purple. This happens 3 or 4 times a day and seems to be unrelated to cold. She does have a history of Graves disease and states that there was some discussion about decreasing her thyroid medication. She also had a recent episode of hyper magnesemia. Related Data Home Medications Medication Instructions Recorded Confirmed levothyroxine 100 mcg tablet 150 mcg PO DAILY 03/21/22 08/26/22 prenat.vits,danuta,[id number] .Route 04/28/22 Previous Rx's Medication Instructions Recorded amlodipine 2.5 mg tablet (Norvasc) 2.5 mg PO DAILY #10 tabs 10/26/22 Allergies Allergy/AdvReac Type Severity Reaction Status Date / Time No Known Drug Allergies Allergy Verified 10/26/22 12:45 Review of Systems Status of ROS: Reports: 10 or more systems reviewed and unremarkable except as noted in History and below Narrative: Constitutional: No fevers, no weight gain or loss. Eyes: No discharge. No vision changes. HENT: No congestion, no sore throat, no ear pain. Cardiovascular: No chest pain, no palpitations. Respiratory: No shortness of breath, no wheezes, no cough. Gastrointestinal: No abdominal pain, no vomiting, no diarrhea. Genitourinary: No dysuria, no hematuria. Musculoskeletal: Normal range of motion. Skin: No rashes, no pruritis. She reports episodes of white followed by purple in her hands occurring 3 or 4 times a day. Neurological: No dizziness, weakness, speech change. She reports a tingling sensation in her right lower extremity. Endo/Heme/Allergies: No bruising or bleeding. No polydipsia. Pysch: no suicidality, no anxiety, no insomnia. All other systems reviewed and are negative. [facility] Medical History Anemia affecting Graves' disease H. pylori infection Hyperemesis gravidarum Hypothyroidism (acquired) Major depressive disorder Pancytopenia Vitamin D deficiency Surgical History No significant past surgical history Social History Smoking Status: Never smoker Do you use any of these nicotine containing products: None Second hand tobacco smoke exposure: No How often do you have a drink containing alcohol: never AUDIT-C Alcohol total score: 0 Non-prescribed substance use: denies use service: No Exam Narrative: Exam Narrative: Constitutional: Well-developed, well-nourished, no acute distress. HEENT: Normocephalic, atraumatic. Neck: Normal range of motion. Nontender. Supple. Heart: Regular. No murmurs. Normal rate. Intact distal pulses. Lungs: Clear to auscultation. No chest discomfort. No wheezes, rhonchi, or rales. Abdomen: Normal bowel sounds. Nontender. No rebound tenderness. Genitalia: Deferred. Back: No midline tenderness. Normal range of motion. Extremities: Normal range of motion. No injury. Skin: Intact. No rash. Warm. No erythema or pallor. Neurologic: No altered sensation. No weakness. Alert and oriented. Psychiatric: No suicidality. No anxiety or depression. No insomnia. Nursing notes and vitals signs are reviewed. Const: Vital Signs, click to edit/add: Vital Signs - 24 hr 10/26/22 12:46 Temperature 98.4 F Pulse Rate [Pulse Oximeter] 76 Respiratory Rate 18 Blood Pressure [Ri ght Upper Arm] 129/89 Pulse Oximetry 100 Oxygen Delivery Me thod Room Air Course Vital Signs Vital signs: Initial Vital Signs Temperature 98.4 F 10/26/22 12:46 Temperature Source Temporal Artery Scan 10/26/22 12:46 Pulse Rate 76 10/26/22 12:46 Pulse Rhythm 10/26/22 12:46 Respiratory Rate 18 10/26/22 12:46 Blood Pressure 129/89 10/26/22 12:46 Blood Pressure Mean 102 10/26/22 12:46 Blood Pressure Position Sitting 10/26/22 12:46 Pulse Oximetry 100 10/26/22 12:46 Oxygen Delivery Method 10/26/22 12:46 Vital Signs Temperature 98.4 F 10/26/22 12:46 Pulse Rate 76 10/26/22 12:46 Respiratory Rate 18 10/26/22 12:46 Blood Pressure 129/89 10/26/22 12:46 Pulse Oximetry 100 10/26/22 12:46 Oxygen Delivery Method 10/26/22 12:46 Temperature 98.4 F 10/26/22 12:46 Pulse Rate 76 10/26/22 12:46 Respiratory Rate 18 10/26/22 12:46 Blood Pressure 129/89 10/26/22 12:46 Pulse Oximetry 100 10/26/22 12:46 Oxygen Delivery Method 10/26/22 12:46 Medical Decision Making MDM Narrative Medical decision making narrative: This 31-year-old female comes in reporting tingling sensation in her right leg. She also has 3 or 4 episodes daily of her hands turning white and then getting purplish color. She does not describe any pain. She is taking a thyroid medicine. I did check lab results which returned with reassuring findings. In particular her sed rate, thyroid, and magnesium are in normal range. She does have an anemia which was present previously. Her symptoms of tingling in her right lower extremity are not likely due to a lumbar radiculopathy as her straight leg raise is negative and she is not having any low back or buttock pain. She does not describe any weakness or pain with this. Her hands and sometimes her feet turned white and then get purplish colored. This brings about some suspicion of Raynaud's phenomenon. Patient does not describe any pain with this and states that it does not seem to be related to cold exposure. I did prescribe a low dose of Norvasc 2.5 mg which could be beneficial if in fact this is Raynaud's phenomenon. I advised her to follow-up with her primary physician regarding these matters for ongoing management. Lab Data Labs: Lab Results 10/26/22 10/26/22 10/26/22 Range/Units 13:25 13:25 13:25 WBC 3.60 L (4.50-11.00) K/uL RBC 4.32 (4.00-5.20) m/uL Hgb 12.9 (12.0-16.0) gm/dL Hct 38.8 (33.0-51.0) % MCV 90 (80-100) fL MCH 30 (26-34) pg MCHC 33 (32-36) gm/dL RDW Coeff of Niles 12.3 (11.5-15.5) % Plt Count 193 (140-440) K/uL Neut % (Auto) 36.7 L (42.0-72.0) % Lymph % (Auto) 52.5 H (20-44) % Amite % (Auto) 9.4 (0.0-11.0) % Eos % (Auto) 1.4 (0.0-7.0) % Baso % (Auto) 0.0 (0.0-3.0) % Neut # (Auto) 1.30 L (1.7-7.0) K/uL Lymph # (Auto) 1.90 (0.90-2.90) K/uL Amite # (Auto) 0.30 (0.00-0.90) K/UL Eos # (Auto) 0.10 (0.00-0.50) K/uL Baso # (Auto) 0.00 (0.00-0.30) K/uL ESR 11 (2-20) mm/hr Sodium 140 (135-149) mmol/L Potassium 3.5 L (3.6-5.1) mmol/L Chloride 109 (96-114) mmol/L Carbon Dioxide 23 (20-32) mmol/L BUN 11 (5-24) mg/dL Creatinine 0.6 (0.5-1.5) mg/dL Estimated Creat Clear 108.43 Estimated GFR 124 ml/min Glucose 96 (60-115) mg/dL Calcium 8.9 (8.4-10.6) mg/dL Magnesium 1.7 (1.5-2.6) mg/dL TSH (0.270-4.20) uIU/mL 10/26/22 Range/Units 13:25 WBC (4.50-11.00) K/uL RBC (4.00-5.20) m/uL Hgb (12.0-16.0) gm/dL Hct (33.0-51.0) % MCV (80-100) fL MCH (26-34) pg MCHC (32-36) gm/dL RDW Coeff of Niles (11.5-15.5) % Plt Count (140-440) K/uL Neut % (Auto) (42.0-72.0) % Lymph % (Auto) (20-44) % Amite % (Auto) (0.0-11.0) % Eos % (Auto) (0.0-7.0) % Baso % (Auto) (0.0-3.0) % Neut # (Auto) (1.7-7.0) K/uL Lymph # (Auto) (0.90-2.90) K/uL Amite # (Auto) (0.00-0.90) K/UL Eos # (Auto) (0.00-0.50) K/uL Baso # (Auto) (0.00-0.30) K/uL ESR (2-20) mm/hr Sodium (135-149) mmol/L Potassium (3.6-5.1) mmol/L Chloride (96-114) mmol/L Carbon Dioxide (20-32) mmol/L BUN (5-24) mg/dL Creatinine (0.5-1.5) mg/dL Estimated Creat Clear Estimated GFR ml/min Glucose (60-115) mg/dL Calcium (8.4-10.6) mg/dL Magnesium (1.5-2.6) mg/dL TSH 0.696 (0.270-4.20) uIU/mL Discharge Plan Discharge Clinical Impression: Paresthesias Patient Disposition: Home, Self-Care Condition: Stable Additional Instructions: Take medication as prescribed. Follow up with MD or return if symptoms are worsening. Prescriptions: New amlodipine [Norvasc] 2.5 mg tablet 2.5 mg PO DAILY Qty: 10 2RF No Action levothyroxine 100 mcg tablet 150 mcg PO DAILY Label Comments: TAKE 1 TABLET BY MOUTH BEFORE BREAKFAST. prenat.vits,danuta,[id number] .Route Follow Up/Referrals: Nadine Higgins MD [Primary Care Provider] - Stand Alone Forms: [employer] Info Instructions
[2022-10-26 13:46] LABS: Eosinophils Percent Auto 1.4 % (0.0-7.0); Hematocrit 38.8 % (33.0-51.0); Hemoglobin* 12.9 gm/dL (12.0-16.0); Lymphocytes Percent Auto 52.5 % (20-44); Mean Corpuscular HGB Conc 33 gm/dL (32-36); Mean Corpuscular Hemoglobin 30 pg (26-34); Mean Corpuscular Volume 90 fL (80-100); Monocytes Percent Auto 9.4 % (0.0-11.0); Neutrophils Percent Auto 36.7 % (42.0-72.0); Platelet Count* 193 K/uL (140-440); RDW Coefficient of Variation % 12.3 % (11.5-15.5); Red Blood Count 4.32 m/uL (4.00-5.20)
[2022-10-26 13:49] LABS: Slide Review Reflex No
[2022-10-26 13:51] LABS: Chloride* 109 mmol/L (96-114); Sodium* 140 mmol/L (135-149)
[2022-10-26 13:52] LABS: Potassium* 3.5 mmol/L (3.6-5.1)
[2022-10-26 13:54] LABS: Carbon Dioxide* 23 mmol/L (20-32); Creatinine* 0.6 mg/dL (0.5-1.5); Est. Creatinine Clearance* 108.43; Estimated Glomerular Filt Rate 124 ml/min
[2022-10-26 13:55] LABS: Blood Urea Nitrogen* 11 mg/dL (5-24); Calcium* 8.9 mg/dL (8.4-10.6); Glucose* 96 mg/dL (60-115); Magnesium* 1.7 mg/dL (1.5-2.6)
[2022-10-26 14:28] LABS: Erythrocyte SedimentationRate* 11 mm/hr (2-20)
[2022-10-26 14:37] LABS: Thyroid Stimulating Hormone* 0.696 uIU/mL (0.270-4.20)
== END 2022-10-26 15:10 | disposition home or self-care (01) ==
PROVIDERS: Emergency Provider Emergency Medicine Emergency Medical Services; PCP Family Medicine
DX: R20.2 Paresthesia of skin (principal)
CPT/HCPCS: 36415; 80048; 83735; 84443; 85025; 85651; 99283; 99284

== ENCOUNTER 2023-03-18 18:04 | Emergency (ER) | payer BC, SELFPAY ==
[2023-03-18 18:16] VITALS: BP 117/80; PULSE 95; RESP 16; TEMP 36.6; O2SAT 95; BMI 26.3
[2023-03-18 18:45] VITALS: PULSE 67; O2SAT 91
--- NOTE | 2023-03-18 18:56 | CRLHL7_ITS ---
For Patients: As a result of the Century Cures Act, medical imaging exams and procedure reports are released immediately into your electronic medical record. You may view this report before your referring provider. If you have questions, please contact your health care provider. INDICATION: Chest pain, shortness of breath TECHNIQUE: Chest 2 views COMPARISON: 07/02/2020 FINDINGS: Cardiovascular and mediastinum: Heart size and vasculature are normal in caliber and appearance. Lungs and pleural spaces: Lungs are clear. No sign of infiltrate or mass. No sign of pleural effusion. No pneumothorax. Bones and soft tissues: No significant findings. IMPRESSION: No acute findings. Dictated by Salvador Ortiz MD @ 03/18/2023 7:54:39 PM (Electronically Signed)
--- NOTE | 2023-03-18 18:59 | ED_ITS ---
HPI - Chest Pain General Time Seen by Provider: 19:00 Date Seen: 03/18/23 Chief Complaint: Chest Pain Stated Complaint: Chest pain Time Seen by Provider: 03/18/23 18:23 Source: patient Mode of arrival: ambulatory Limitations: no limitations History of Present Illness HPI narrative: Patient is a 32-year-old female with a history of anxiety and panic attacks presenting respect for chest pain. She says for the past month she has been having about 2 panic attacks per day. She states that over time she has panic attack she will have chest pain afterwards. Says the pain is midsternal. She also says she has been having associated shortness of breath for the past few days she says has been getting progressively worsened. No history of blood clots. No recent surgeries. No history of cancer. She is on a estrogen implantable control. She tried to follow up with the primary care provider was unable to get and was told to come to the emergency department due to the chest pain. Denies fevers, chills, abdominal pain, diarrhea, constipation, headache, vision changes. She states she does not know if this is all just due to her panic attacks. Denies ever having symptoms like this before. Related Data Home Medications Medication Instructions Recorded Confirmed levothyroxine 100 mcg tablet 150 mcg PO DAILY 03/21/22 03/18/23 Previous Rx's Medication Instructions Recorded amlodipine 2.5 mg tablet (Norvasc) 2.5 mg PO DAILY #10 tabs 10/26/22 Allergies Allergy/AdvReac Type Severity Reaction Status Date / Time No Known Drug Allergies Allergy Verified 03/18/23 18:21 Review of Systems Status of ROS Reports: 10 or more systems reviewed and unremarkable except as noted in History and below [facility] Medical History Anemia affecting Graves' disease H. pylori infection Hyperemesis gravidarum Hypothyroidism (acquired) Major depressive disorder Pancytopenia Vitamin D deficiency Surgical History No significant past surgical history Social History Smoking Status: Never smoker Do you use any of these nicotine containing products: None Second hand tobacco smoke exposure: No How often do you have a drink containing alcohol: never AUDIT-C Alcohol total score: 0 Non-prescribed substance use: denies use service: No Exam Narrative Exam Narrative: Const: Well-nourished, Well-developed, in mild distress Eyes: PERRL, no conjunctival injection, and symmetrical lids ENMT: Atraumatic external nose and ears. Moist mucous membranes. Neck: Symmetric, trachea midline, No thyromegaly. CVS: RRR, No murmurs or gallops. Peripheral pulses 2+ and equal in all extremities RESP: Unlabored respiratory effort. Clear to auscultation bilaterally. GI: Nontender/Nondistended, No rebound or guarding. MSK:Extremities w/o deformity, Normal Active ROM. Tenderness to palpation midsternal chest Skin: Warm, Dry. No rashes or lesions. Neuro: Normal Muscle tone, No focal neurological deficits. Psych: Awake, Alert, & Oriented x3. Appropriate mood and affect. Const Vital Signs, click to edit/add: Vital Signs - 24 hr 03/18/23 18:16 03/18/23 18:45 03/18/23 19:00 Temperature 97.9 F Pulse Rate 67 66 Pulse Rate [Right Pulse Oximeter] 95 Respiratory Rate 16 Blood Pressure Blood Pressure [Right Upper Arm] 117/80 Pulse Oximetry 95 91 95 Oxygen Delivery Method Room Air 03/18/23 19:01 Temperature Pulse Rate 69 Pulse Rate [Right Pulse Oximeter] Respiratory Rate Blood Pressure 111/71 Blood Pressure [Right Upper Arm] Pulse Oximetry 96 Oxygen Delivery Method Course Vital Signs Vital signs: Initial Vital Signs Temperature 97.9 F 03/18/23 18:16 Temperature Source Temporal Artery Scan 03/18/23 18:16 Pulse Rate 95 03/18/23 18:16 Respiratory Rate 16 03/18/23 18:16 Blood Pressure 117/80 03/18/23 18:16 Blood Pressure Mean 92 03/18/23 18:16 Pulse Oximetry 95 03/18/23 18:16 Oxygen Delivery Method Room Air 03/18/23 18:16 Vital Signs Temperature 97.9 F 03/18/23 18:16 Pulse Rate 95 03/18/23 18:16 Respiratory Rate 16 03/18/23 18:16 Blood Pressure 117/80 03/18/23 18:16 Pulse Oximetry 95 03/18/23 18:16 Oxygen Delivery Method Room Air 03/18/23 18:16 Temperature 97.9 F 03/18/23 18:16 Pulse Rate 69 03/18/23 19:01 Respiratory Rate 16 03/18/23 18:16 Blood Pressure 111/71 03/18/23 19:01 Pulse Oximetry 96 03/18/23 19:01 Oxygen Delivery Method Room Air 03/18/23 18:16 MDM - Chest Pain MDM Narrative Medical decision making narrative: Patient is a 32-year-old female presented emergency department for chest pain. She states it has been going on for the past 3 weeks and gets worse whenever she has a panic attack which she states she has been having multiple times a week. She is not sure if the pain is all anxiety related or not. She is tender to palpation to the midsternal region. She states when I press on it it completely reproduces the pain. She cannot be perced out due to being on estrogen based control. D-dimer was ordered. We did do a full cardiac workup. CBC, BMP, troponin, EKG, chest x-ray. Patient's lab work returned showing no concerning abnormalities. White blood cell count slightly low 3.55 there is no clear signs of infection at this time. The could be an underlying viral infection by not believe is necessary to fu rther dig into these labs and she chronically has a lower white blood cell count. Hemoglobin also appears to be stable for her. BMP shows no concerning abnormalities. Troponin is within normal limits. D-dimer within normal limits. EKG showed no concerning abnormalities. Patient's symptoms are most likely to be from costochondritis considering the tenderness. Patient be discharged home. She is agreeable to this plan. Differential Diagnosis Differential diagnosis: Likely pneumothorax, stable angina, atypical chest pain and costochondritis Lab Data Labs: Lab Results 03/18/23 Range/Units 19:10 WBC 3.55 L (4.50-11.00) K/uL RBC 3.74 L (4.00-5.20) m/uL Hgb 11.1 L (12.0-16.0) gm/dL Hct 33.9 (33.0-51.0) % MCV 91 (80-100) fL MCH 30 (26-34) pg MCHC 33 (32-36) gm/dL RDW Coeff of Niles 12.4 (11.5-15.5) % Plt Count 178 (140-440) K/uL Neut % (Auto) 55.7 (42.0-72.0) % Lymph % (Auto) 33.0 (20-44) % Ness % (Auto) 9.9 (0.0-11.0) % Eos % (Auto) 1.4 (0.0-7.0) % Baso % (Auto) 0.0 (0.0-3.0) % Neut # (Auto) 2.00 (1.7-7.0) K/uL Lymph # (Auto) 1.20 (0.90-2.90) K/uL Ness # (Auto) 0.40 (0.00-0.90) K/UL Eos # (Auto) 0.00 (0.00-0.50) K/uL Baso # (Auto) 0.00 (0.00-0.30) K/uL Abs Immat Gran (auto) 0.00 (0.00-0.30) K/uL Imm/Tot Granulo (auto) 0.0 % D-Dimer Quant (PE/DVT) < 0.27 (0.00-0.50) ug/ml Sodium 139 (135-149) mmol/L Potassium 3.5 L (3.6-5.1) mmol/L Chloride 104 (96-114) mmol/L Carbon Dioxide 25 (20-32) mmol/L BUN 13 (5-24) mg/dL Creatinine 0.7 (0.5-1.5) mg/dL Estimated Creat Clear 92.10 Estimated GFR 119 ml/min Glucose 88 (60-115) mg/dL Calcium 8.9 (8.4-10.6) mg/dL Troponin I < 0.01 L (0.01-0.04) ng/mL HCG, Quant < 2.39 mIU/mL ECG Data Attestation: I personally reviewed and interpreted this ECG as follows: (Normal sinus rhythm rate 67 beats per minute, normal intervals, normal axis, no ST or T-wave abnormalities other than infuse be possible V3 inversions but we now previous EKG to compare to so unsure if this is new or not) Discharge Plan Discharge Clinical Impression: Costalchondritis Patient Disposition: Home, Self-Care Condition: Stable Instructions: Costochondritis (ED) Additional Instructions: Her symptoms are likely secondary to costochondritis which is inflammation of the chest wall. Recommend take Tylenol and ibuprofen for pain. The workup showed it is unlikely to have any heart or lung cause of the pain at this time. Follow up with the primary care provider. If symptoms worsen please return to the emergency department. Prescriptions: No Action levothyroxine 100 mcg tablet 150 mcg PO DAILY Patient Comments: TAKE 1 TABLET BY MOUTH BEFORE BREAKFAST. amlodipine [Norvasc] 2.5 mg tablet 2.5 mg PO DAILY Qty: 10 2RF Hold Instructions: stopped Follow Up/Referrals: Nadine Higgins MD [Primary Care Provider] - Stand Alone Forms: [employer] Info Instructions
[2023-03-18 19:00] VITALS: PULSE 66; O2SAT 95
[2023-03-18 19:01] VITALS: BP 111/71; PULSE 69; O2SAT 96
[2023-03-18 19:16] LABS: Eosinophils Percent Auto 1.4 % (0.0-7.0); Hematocrit 33.9 % (33.0-51.0); Hemoglobin* 11.1 gm/dL (12.0-16.0); Mean Corpuscular HGB Conc 33 gm/dL (32-36); Mean Corpuscular Hemoglobin 30 pg (26-34); Mean Corpuscular Volume 91 fL (80-100); Monocytes Percent Auto 9.9 % (0.0-11.0); Neutrophils Percent Auto 55.7 % (42.0-72.0); Platelet Count* 178 K/uL (140-440); RDW Coefficient of Variation % 12.4 % (11.5-15.5); Red Blood Count 3.74 m/uL (4.00-5.20); White Blood Count* 3.55 K/uL (4.50-11.00)
[2023-03-18 19:30] LABS: Slide Review Reflex No
[2023-03-18 19:35] LABS: Chloride* 104 mmol/L (96-114); Potassium* 3.5 mmol/L (3.6-5.1); Sodium* 139 mmol/L (135-149)
[2023-03-18 19:38] LABS: Blood Urea Nitrogen* 13 mg/dL (5-24); Calcium* 8.9 mg/dL (8.4-10.6); Carbon Dioxide* 25 mmol/L (20-32); Creatinine* 0.7 mg/dL (0.5-1.5); Estimated Glomerular Filt Rate 119 ml/min; Glucose* 88 mg/dL (60-115)
[2023-03-18 19:42] LABS: D Dimer Quantitative* < 0.27 ug/ml (0.00-0.50)
[2023-03-18 19:52] LABS: Troponin I* < 0.01 ng/mL (0.01-0.04)
[2023-03-18 19:59] LABS: HCG Quantitative* < 2.39 mIU/mL
== END 2023-03-18 20:23 | disposition home or self-care (01) ==
PROVIDERS: Emergency Provider Student in an Organized Health Care Education/Training Program; PCP Family Medicine
DX: M94.0 Chondrocostal junction syndrome [Tietze] (principal)
CPT/HCPCS: 36415; 71046; 80048; 84484; 84702; 85025; 85379; 93005; 99283; 99284

== ENCOUNTER 2023-08-03 08:06 | Emergency (ER) | payer BC, SELFPAY ==
[2023-08-03 08:37] VITALS: BP 104/69; PULSE 72; RESP 16; TEMP 37.1; O2SAT 98; BMI 26.9
--- NOTE | 2023-08-03 09:27 | ED_ITS ---
HPI - General Adult General Chief complaint: Cough Stated complaint: possible COVID Time Seen by Provider: 08/03/23 08:50 Source: patient Mode of arrival: ambulatory Limitations: no limitations History of Present Illness HPI narrative: 32-year-old female coming in today complaining of generalized not feeling well since yesterday. She has a very mild cough and headache. She is concerned because her was quite sick over the last couple of days and he came into contact with someone with COVID. She would like to be tested for COVID today. She has no fevers or chills. No changes in her appetite. No chest pain or shortness of breath. Cough is mild and nonproductive. Headache is not out of the ordinary for her. She has no nausea or vomiting. She is generally healthy, takes no medications. Does have a history of anemia, hypothyroidism, depression. Related Data Home Medications Medication Instructions Recorded Confirmed levothyroxine 100 mcg tablet 150 mcg PO DAILY 03/21/22 08/03/23 Allergies Allergy/AdvReac Type Severity Reaction Status Date / Time No Known Drug Allergies Allergy Verified 03/18/23 18:21 Review of Systems Status of ROS: Reports: 10 or more systems reviewed and unremarkable except as noted in History and below [facility] Medical History (normal spontaneous vaginal delivery) ?O80 - Encounter for full-term uncomplicated delivery (ICD-10) Graves' disease ?E05.00 - Thyrotoxicosis with diffuse goiter without thyrotoxic crisis or storm (ICD-10) Hypothyroidism (acquired) ?E03.9 - Hypothyroidism, unspecified (ICD-10) Major depressive disorder ?F32.9 - Major depressive disorder, single episode, unspecified (ICD-10) Vitamin D deficiency ?E55.9 - Vitamin D deficiency, unspecified (ICD-10) Pancytopenia ?D61.818 - Other pancytopenia (ICD-10) Hyperemesis gravidarum ?O21.0 - Mild hyperemesis gravidarum (ICD-10) Anemia affecting ?O99.019 - Anemia complicating , unspecified trimester (ICD-10) H. pylori infection ?A04.8 - Other specified bacterial intestinal infections (ICD-10) Surgical History No significant past surgical history Social History Smoking Status: Never smoker Do you use any of these nicotine containing products: None Second hand tobacco smoke exposure: No How often do you have a drink containing alcohol: never AUDIT-C Alcohol total score: 0 Non-prescribed substance use: denies use service: No Exam Narrative: Exam Narrative: Well-nourished well-developed patient in no acute distress. Alert and oriented. Answers questions appropriately. Mood and affect are appropriate. Thoughts are goal oriented and rational. No tangential or magical thinking noted. Patient speaks in full sentences without needing to catch her breath. Does not appear ill or toxic. HEENT: Normocephalic atraumatic. Pupils are equally round reactive to light. Extraocular muscles are intact. Conjunctivae are moist without any icterus noted. No pallor of the skin or conjunctiva are noted. Moist mucous membranes. Posterior pharynx is normal. Neck is soft without any lymphadenopathy or thyromegaly. No masses are appreciated. Cardiovascular: Heart is regular rate and rhythm S1 and S2 are present without any murmurs. Lungs: Clear to auscultation bilaterally no wheezes rhonchi or rales are appreciated. Patient takes deep breaths without any discomfort. Abdomen: Soft and nontender nondistended with normal bowel sounds. Extremities: Bilateral lower extremities are without edema. Skin: Well perfused without any obvious rashes. Const: Vital Signs, click to edit/add: Vital Signs - 24 hr 08/03/23 08:37 Temperature 98.7 F Pulse Rate [Pulse Oximeter] 72 Respiratory Rate 16 Blood Pressure [Ri ght Upper Arm] 104/69 Pulse Oximetry 98 Oxygen Delivery Me thod Room Air Course Course ED Course: Triple swab was obtained. This was negative. Vital Signs Vital signs: Initial Vital Signs Temperature 98.7 F 08/03/23 08:37 Temperature Source Temporal Artery Scan 08/03/23 08:37 Pulse Rate 72 08/03/23 08:37 Respiratory Rate 16 08/03/23 08:37 Blood Pressure 104/69 08/03/23 08:37 Blood Pressure Mean 80 08/03/23 08:37 Blood Pressure Position Sitting 08/03/23 08:37 Pulse Oximetry 98 08/03/23 08:37 Oxygen Delivery Method Room Air 08/03/23 08:37 Vital Signs Temperature 98.7 F 08/03/23 08:37 Pulse Rate 72 08/03/23 08:37 Respiratory Rate 16 08/03/23 08:37 Blood Pressure 104/69 08/03/23 08:37 Pulse Oximetry 98 08/03/23 08:37 Oxygen Delivery Method Room Air 08/03/23 08:37 Temperature 98.7 F 08/03/23 08:37 Pulse Rate 72 08/03/23 08:37 Respiratory Rate 16 08/03/23 08:37 Blood Pressure 104/69 08/03/23 08:37 Pulse Oximetry 98 08/03/23 08:37 Oxygen Delivery Method Room Air 08/03/23 08:37 Medical Decision Making MDM Narrative Medical decision making narrative: 32-year-old female with a mild headache today. Concern for COVID, which was negative. We discussed resting, increasing fluid intake and reasons for follow-up. Lab Data Lab results reviewed: Yes I reviewed the patient's lab results Labs: Lab Results 08/03/23 Range/Units Unknown SARS-CoV-2 (PCR) Negative SARS-CoV-2 (Negative) Influenza Type A (PCR) Negative PCR FLU A (Negative) Influenza Type B (PCR) Negative PCR FLU B (Negative) RSV (PCR) Negative PCR RSV (Negative) Discharge Plan Discharge Clinical Impression: Cough, Headache Patient Disposition: Home, Self-Care Condition: Stable Additional Instructions: Your tests for COVID, influenza and RSV were negative today. Get plenty of rest, eat a nutritious diet and increase fluid intake. If you feel like you are getting worse instead of better follow-up with your primary care provider or return to the ER. Prescriptions: No Action levothyroxine 100 mcg tablet 150 mcg PO DAILY Patient Comments: TAKE 1 TABLET BY MOUTH BEFORE BREAKFAST. Follow Up/Referrals: Nadine Higgins MD [Primary Care Provider] - Stand Alone Forms: [email or web address] Info Instructions
[2023-08-03 09:40] LABS: PCR FLU A Negative PCR FLU A (Negative); PCR FLU B Negative PCR FLU B (Negative); PCR RSV Negative PCR RSV (Negative)
[2023-08-03 09:46] LABS: SARS PCR* Negative SARS-CoV-2 (Negative)
== END 2023-08-03 10:45 | disposition home or self-care (01) ==
PROVIDERS: Emergency Provider Family Medicine; PCP Family Medicine
DX: R51.9 Headache, unspecified (principal); R05.9 Cough, unspecified
CPT/HCPCS: 87631; 95992; 99283; 99284

== ENCOUNTER 2023-12-12 13:00 | Outpatient (RCR) | payer BC, SELFPAY | END 2024-04-10 23:59 | disposition home or self-care (01) | PROVIDERS: PCP Family Medicine; Visit Provider Family Medicine | DX: M54.42 Lumbago with sciatica, left side (principal); M54.41 Lumbago with sciatica, right side; G89.29 Other chronic pain; M54.2 Cervicalgia; M54.16 Radiculopathy, lumbar region; M62.81 Muscle weakness (generalized); Z51.89 Encounter for other specified aftercare | CPT/HCPCS: 97112; 97163 ==

== ENCOUNTER 2024-01-29 22:44 | Emergency (ER) | payer BC, SELFPAY ==
[2024-01-29 22:52] VITALS: BP 128/85; PULSE 82; RESP 26; TEMP 37.1; O2SAT 100; BMI 26.6
[2024-01-30 00:01] VITALS: BP 131/89; PULSE 91; RESP 22; TEMP 37.1; O2SAT 100
--- NOTE | 2024-01-30 00:13 | CRLHL7_ITS ---
For Patients: As a result of the Century Cures Act, medical imaging exams and procedure reports are released immediately into your electronic medical record. You may view this report before your referring provider. If you have questions, please contact your health care provider. INDICATION: Chest pain. TECHNIQUE: Chest 2 views. COMPARISON: None. FINDINGS: Cardiovascular and mediastinum: Heart size and vasculature are normal in caliber and appearance. Lungs and pleural spaces: Lungs are clear. No sign of infiltrate or mass. No sign of pleural effusion. No pneumothorax. Bones and soft tissues: Surgical clips in the right upper quadrant. Otherwise, unremarkable for age. IMPRESSION: No evidence of an acute pulmonary process. Dictated by Kranthi Jordan MD @ 01/30/2024 12:57:32 AM (Electronically Signed)
--- OUTSIDE RECORDS SUMMARY | 2024-01-30 00:24 | XMS_ITS | Clinical Summary ---
Author Organization [facility] Address [place], [place] [address] Care Team Providers Care Infantryman Name Role Phone Martell Garcia MD Unavailable [phone] Nadine Higgins MD Primary Care Provider [phone] Nova Jones SALARY MANAGER Unavailable Liv Soto MD Unavailable [phone] Allergies No known active allergies Medications Medication Sig Dispensed Refills Start Date End Date Status vit calc,iron,folic (PRENAT.VITS,[facility] [id number] ORAL) 04/28/2022 Active ondansetron (ZOFRAN ODT) 4 mg disintegrating tabletIndications:M igraine syndrome,Nausea Place 1 Tablet (4 mg) on the tongue every 8 hours if needed for Nausea/Vomiting. 30 Tablet 01/14/2023 Active Additional Information Patient not taking.Reported on 01/27/2024 fluticasone (50 mcg per actuation) nasal solution (FLONASE)Indication s:Sinus congestion Inhale 2 Sprays to both nostrils once daily. 16 g 05/09/2023 Active Additional Information Patient not taking.Reported on 01/27/2024 ielkeaz-ebgh-hmbha acid (PREPLUS;NATALCARE PLUS) 27 mg iron- 1 mg tabletIndications:P ostpartum anemia Take 1 Tablet by mouth once daily. 90 Tablet 05/14/2023 Active Additional Information Patient not taking.Reported on 01/27/2024 ferrous sulfate 325 mg delayed release tabletIndications:I jalen deficiency anemia, unspecified iron deficiency anemia type Take 1 Tablet (325 mg) by mouth once every other day. 90 Tablet 3 06/10/2023 Active Additional Information Patient not taking.Reported on 01/27/2024 hydrOXYzine HCL (ATARAX) 25 mg tabletIndications:P anic attack Take 1-2 Tablets (25-50 mg) by mouth every 6 hours if needed for Anxiety (panic. May also use prn for sleep). 90 Tablet 11/07/2023 Active SUMAtriptan (IMITREX) 25 mg tabletIndications:M igraine syndrome Take 1 tab by mouth at onset of symptoms. Take another tablet if needed at minimum 2hrs apart. Max Dose: 200mg per 24hrs. 12 Tablet 3 11/07/2023 Active lidocaine 5 % topical patchIndications:Ch ronic bilateral low back pain with bilateral sciatica,Neck pain, chronic Apply on dry, clean, hairless skin. Apply 1 patch to painful area of skin for up to to 12 hours within 24 hour period. 30 Patch 11 11/07/2023 Active Additional Information Patient not taking.Reported on 01/27/2024 cholecalciferol (VITAMIN D3) 50,000 unit capsuleIndications: Low vitamin D level Take 1 Capsule (50,000 units) by mouth once weekly. 8 Capsule 11/11/2023 Active Additional Information Patient not taking.Reported on 01/27/2024 cholecalciferol (Vitamin D-3) 2,000 unit capsuleIndications: Low vitamin D level Take 1 Capsule (2,000 units) by mouth once daily. [place] [address] [place] dosing. 90 Capsule 3 12/18/2023 Active Additional Information Patient not taking.Reported on 01/27/2024 levothyroxine (SYNTHROID) 100 mcg tabletIndications:H ypothyroidism (acquired) Take 1 Tablet (100 mcg) by mouth before breakfast. 90 Tablet 12/19/2023 Active Additional Information Patient not taking.Reported on 01/27/2024 omeprazole (PRILOSEC) 20 mg Delayed-Release capsuleIndications: H. pylori infection Take 1 Capsule (20 mg) by mouth once daily before a meal. Take 30 minutes prior to a meal 90 Capsule 3 11/19/2023 01/14/20 24 Discontinue d(*Medicati on adjustment) clarithromycin (BIAXIN) 500 mg tabletIndications:H . pylori infection Take 1 Tablet (500 mg) by mouth two times daily for 14 days. 28 Tablet 01/14/2024 01/28/20 24 amoxicillin (AMOXIL) 500 mg tabletIndications:H . pylori infection Take 2 Tablets (1,000 mg) by mouth two times daily for 14 days. 56 Tablet 01/14/2024 01/28/20 24 omeprazole 20 mg tabletIndications:H . pylori infection Take 1 Tablet (20 mg) by mouth two times daily for 14 days. 28 Tablet 01/14/2024 01/28/20 24 Active Problems Problem Noted Date Diagnosed Date Iron deficiency anemia 01/27/2024 Depression, major, single episode, severe 2022 Two vessel umbilical cord in burger , antepartum 05/15/2022 09/03/2021 Overview: 2-vessel cord Estimated Date of Delivery: None noted. Patient's last menstrual period was 05/22/2021. Last Tdap- 07/03/22 Last Flu vaccine- 05/31/2020 Glucose (GTT) result- Component Latest Ref Rng & Units 06/12/2022 HEMOGLOBIN 12.0 - 16.0 g/dL 10.7 (L) MCV 80 - 100 fL 92 GLUCOSE,GESTATIONAL 65 - 140 mg/dL 127 TREPONEMA PALLIDUM Negative Negative 20 week US: FINDINGS: Sonographic imaging demonstrates a single living intrauterine gestation. Fetus demonstrates a regular cardiac rate of 153 beats per minute. Fetus has a breech position. The placenta lies posteriorly without evidence of placenta previa. Amniotic fluid volume appears normal. Single deepest vertical pocket: 5.1 cm. The cervix is closed and measures 3.7 cm in length. The composite ultrasound gestational age is calculated at 21 weeks 2 days with an estimated sonographic due date of 09/22/2022. No Known Allergies OB History Para Term AB Living 5 2 2 0 1 2 SAB IAB Ectopic Multiple Live Births 0 1 0 0 2 # Outcome Date GA Lbr Bam/2nd Weight Sex Delivery Anes PTL Lv 5 Current 4 Term 08/29/15 40w6d 3.37 kg (7 lb 7 oz) F Vag MIKEY 3 IAB 03/03/13 2 Term 12/20/08 38w0d 3.52 kg (7 lb 12 oz) M Vag EPIDURAL MIKEY Comments: transfusion, chorio Apgar1: 8 Apgar5: 9 1 Create lab flowsheet for OB labs- Component Latest Ref Rng & Units 02/20/2022 02/20/2022 02/20/2022 3:10 PM 3:13 PM 3:13 PM ABORH O Rh Positive ANTIBODY SCREEN Negative Negative SPECIMEN EXPIRATION DATE/TIME 02/23/22 23:59 HEMOGLOBIN 12.0 - 16.0 g/dL 11.3 (L) MCV 80 - 100 fL 88 RUBELLA IGG ANTIBODY Positive VARICELLA ZOSTER IGG ANTIBODY HBSAG Nonreactive Nonreactive HEPATITIS C ANTIBODY Non-Reactive Non-Reactive TREPONEMA PALLIDUM Negative Negative Component Latest Ref Rng & Units 02/20/2022 02/20/2022 02/20/2022 3:13 PM 3:13 PM 3:13 PM ABORH ANTIBODY SCREEN Negative SPECIMEN EXPIRATION DATE/TIME HEMOGLOBIN 12.0 - 16.0 g/dL MCV 80 - 100 fL RUBELLA IGG ANTIBODY 1.54 VARICELLA ZOSTER IGG ANTIBODY Positive 1,108.0 HBSAG Nonreactive HEPATITIS C ANTIBODY Non-Reactive TREPONEMA PALLIDUM Negative Past Medical History: . Date ? ? Abnormal Pap smear of cervix ? ? Anemia ? ? Attempted suicide (HC) 05/18/2018 ? ? Depression ? ? Gall stones 03/06/2009 ? ? Graves disease 08/19/2012 S/P radioactive iodine 06/2012 ? ? H. pylori infection 08/01/2021 Colonoscopy 07/2021 h pylori ? ? History of hemorrhage 08/22/2015 In first , required transfusion. Sounds like a very long induction ? ? Hypothyroid s/p treatment of graves ? ? 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 ? Migraine headache ? ? Pap smear of cervix with ASCUS, cannot exclude HGSIL 06/20/202106/2021 ASC-H Plan: Pap due 07/2022 ? ? Supervision of other normal 12/15/2014 ? ? Unspecified hypothyroidism 02/22/2011 Past Surgical History: . Laterality Date ? ? CHOLECYSTECTOMY 03/2009 ? ? COLPOSCOPY 08/03/2021 benign ? ? DILATION AND CURETTAGE secondary to hemorrhage, transfusion ? ? ESOPHAGOGASTRODUODENOSCOPY 07/2021 EDG 07/2021 h pylori No data on file. Problems (from 08/29/21 to present) No problems associated with this episode. Janet Farmer RN.....09/03/2021 12:46 PM H. pylori infection 08/01/2021 Overview: EGD 07/2021 h pylori+ Pap smear of cervix with ASCUS, cannot exclude H GSIL 06/20/2021 Overview: 06/2021 ASC-H 07/2021 [place], negative 10/2022 NIL/ HPV negative Plan: pap/hpv due 10/2023 Anemia in 11/03/2018 Supervision of high risk in third trim yasir 10/12/2018 Hyperemesis gravidarum 06/26/2018 Hypotension 06/24/2018 Metabolic acidosis, normal anion gap (NAG) 06/24 Pancytopenia 06/23/2018 Abdominal pain 06/23/2018 Nausea & vomiting 06/23/2018 Abnormal weight gain during 06/23/2018 Overview: Has actually lost 7-9 kg during beginning of . Vitamin D deficiency 06/23/2018 Mild protein-calorie malnutrition 06/23/2018 Hypokalemia 06/23/2018 Cervical motion tenderness 06/23/2018 Overview: Mild. CG/chlamydia checked 06/23/2018 Major depressive disorder 05/19/2018 Overview: Suicide attempt by hanging in 05/2018. Brought on by stress of marriage dissolution and recent finding of . Patient has been recommended to take antidepressants in the past (2016) but declined. Currently declines medication due to . Hypothyroidism (acquired) 02/04/2017 Overview: Status post radioactive iodine for Graves disease Graves disease 08/19/2012 Overview: S/P radioactive iodine 06/2012 Resolved Problems Problem Noted Date Diagnosed Date Resolved Date Hypokalemia 05/19/2018 06/23/2018 First trimester bleeding 05/19/201801/2018 13 weeks gestation of 05/19/2018 09/03/2021 Overview: Estimated Date of Delivery: 12/28/18 Patient's last menstrual period was 03/23/2018 (exact date). Last Tdap- 10/12/2018 Last Flu vaccine- 04/03/2015 Glucose (GTT) result- Component Latest Ref Rng & Units 09/14/2018 WHITE BLOOD COUNT 4.5 - 11.0 thou/cu mm 4.3 (L) RED BLOOD COUNT 4.00 - 5.20 mil/cu mm 3.27 (L) HEMOGLOBIN 12.0 - 16.0 g/dL 9.9 (L) HEMATOCRIT 33.0 - 51.0 % 29.9 (L) MCV 80 - 100 fL 91 MCH 26.0 - 34.0 pg 30.3 MCHC 32.0 - 36.0 g/dL 33.1 RDW 11.5 - 15.5 % 13.6 PLATELET COUNT 140 - 440 thou/cu mm 209 MPV 6.5 - 11.0 fL 9.1 NEUTROPHILS % 62.4 LYMPHOCYTES % 28.1 MONOCYTES % 9.0 EOSINOPHILS % 0.5 BASOPHILS % 0.0 ABSOLUTE NEUTROPHILS 1.7 - 7.0 thou/cu mm 2.7 ABSOLUTE LYMPHOCYTES 0.9 - 2.9 thou/cu mm 1.2 ABSOLUTE MONOCYTES <0.9 thou/cu mm 0.4 ABSOLUTE EOSINOPHILS <0.5 thou/cu mm 0.0 ABSOLUTE BASOPHILS <0.3 thou/cu mm 0.0 GLUCOSE,GESTATIONAL 65 - 139 mg/dL 104 TSH 0.35 - 4.94 uIU/mL 56.27 (H) No Known Allergies Obstetric History T2 L2 SAB0 TAB1 Ectopic0 Multiple0 Live Births2 # Outcome Date GA Lbr Bam/2nd Weight Sex Delivery Anes PTL Lv 4 Current 3 Term 08/29/15 40w6d 3.37 kg (7 lb 7 oz) F Vag MIKEY 2 TAB 03/03/13 1 Term 12/20/08 38w0d 3.52 kg (7 lb 12 oz) M Vag EPIDURAL Apgar1: 8 Apgar5: 9 Create lab flowsheet for OB labs- Component Latest Ref Rng & Units 05/28/2018 05/28/2018 05/28/2018 2:56 PM 2:56 PM 2:56 PM HEMOGLOBIN 12.0 - 16.0 g/dL 12.0 MCV 80 - 100 fL 91 ANTIBODY SCREEN Negative Negative SPECIMEN EXPIRATION DATE/TIME 05/31/18 23:59 RUBELLA IGG ANTIBODY Positive 1.81 TSH 0.35 - 4.94 uIU/mL 58.99 (H) HIV-1/HIV-2 ANTIBODY Non-Reactive Non-Reactive ABORH O Rh Positive HBSAG Nonreactive Nonreactive TREPONEMA PALLIDUM Negative Negative Past Medical History: Diagnosis Date ? ? Gall stones 03/06/2009 ? ? Hypothyroid s/p treatment of graves ? ? 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 ? Supervision of other normal 12/15/2014 ? ? Unspecified hypothyroidism 02/22/2011 Past Surgical History: Procedure Laterality Date ? ? CHOLECYSTECTOMY 03/2009 ? ? DILATION AND CURETTAGE secondary to hemorrhage, transfusion No data on file. 3rd Problems (from 04/27/18 to present) No problems associated with this episode. Janet Desai RNC.....06/03/2018 12:35 PM Suicide attempt 05/19/2018 06/23/2018 Attempted suicide 05/18/2018 06/23/2018 History of hemorrhage 08/22/2015 06/23/2018 Overview: In first , required transfusion. Sounds like a very long induction Graves disease 08/19/2012 06/23/2018 Overview: S/P radioactive iodine 06/2012 Gall stones 03/06/2009 06/23/2018 Supervision of normal first 07/22/2008 2010 Overview: Evolving preeclampsia Encounters Date Type Department Care Team Description 01/27/2024 3:45 PM CDT Office Visit [facility] [address] [place] [phone] Nova Jones NP Follow Up (Mild chronic anemia/) 01/27/2024 Travel 01/14/2024 [address]phone [facility] [address] [place], [place] [id number] Nadine Higgins MD Results 01/08/2024 10:30 AM CDT - 01/08/2024 11:59 PM CDT Hospital Encounter [facility] [address] [place] [address] H. pylori infection 01/08/2024 8:00 AM CDT Ancillary Procedure [facility] [address] [place] [address] 01/08/2024 7:15 AM CDT Ancillary Procedure [facility] [address] [place] [address] 01/08/2024 Travel 01/05/2024 3:19 PM CDT - 01/05/2024 11:59 PM CDT Hospital Encounter [facility] [address] [place] [address] Mild chronic anemia; Leukopenia, unspecified type 01/05/2024 2:45 PM CDT Office Visit [facility] [address] [place] [phone] Nova Jones, SALARY MANAGER Consult ( Mild chronic anemia Leukopenia,) 01/05/2024 Travel 12/22/2023 Nurse Triage [facility] [address] [place] [address] Nadine Higgins MD Fatigue (Fatigue and body aches) 12/19/2023 Telephone [facility] [address] [place] [address] Nadine Higgins MD Results 12/18/2023 1:45 PM CDT Ancillary Procedure [facility] [address] [place] [address] 12/18/2023 1:30 PM CDT Ancillary Procedure [facility] [address] [place] [address] 12/18/2023 12:45 PM CDT Office Visit [facility] [address] [place] [address] Nadine Higgins MD Extremity Weakness (Right side only, 4 months) 12/18/2023 Telephone [facility] [address] [place] [address] Nadine Higgins MD Results 12/18/2023 Travel 12/17/2023 Telephone [facility] [address] [place] [address] Nadine Higgins MD FYI (Fax from Physical Therapy) 12/16/2023 Telephone [facility] [address] [place] [address] Nadine Higgins MD Follow Up (Physical therapy follow up ) 12/12/2023 3:20 PM CDT Office Visit [facility] [address] [place] [address] Lidia Bernstein PA Concerns 12/12/2023 Travel 11/17/2023 Telephone [facility] [address] [address] Nova Jones SALARY MANAGER Appointment 11/11/2023 Telephone [facility] [address] [place] [address] Nadine Higgins MD Prior Authorization (lidocaine 5 % topical patch (DENIED)) 11/11/2023 Telephone [facility] [address] [place] [address] Nadine Higgins MD Prior Authorization (omeprazole 20 mg tablet Denied) 11/11/2023 Telephone [facility] [address] [place] [address] Nadine Higgins MD Prior Authorization 11/11/2023 Telephone [facility] [address] [place] [address] Nadine Higgins MD Results 11/10/2023 Telephone [facility] [address] [place] [address] Nadine Higgins MD Pharmacist Medication Management (tetracycline 500 mg capsule) 11/08/2023 Orders Only [facility] Scanner 1 scan: (1-Ord) INCOMING RECORDS-PATHOLOGY, [facility], 11/08/2023 11/08/2023 Orders Only [facility] Scanner 1 scan: (1-Ord) INCOMING RECORDS-ENDOSCOPY, [facility], 11/08/2023 11/07/2023 1:35 PM CDT Office Visit [facility] [address] [place] [address] Nadine Higgins MD Physical (32 year old) 11/07/2023 Telephone [facility] [address] [place] [address] Nadine Higgins MD Results 11/07/2023 Travel from Last 3 Months Immunizations Name Administration Dates Next Due Human Papilloma Virus Vaccine 08/04/2014, 012,02/16/2011 04/19/2011 Influenza, IIV3 (Age >=3 years) 05/02/2014,05/08,08/27/2010 Influenza, IIV4 04/03/2015 Influenza, IIV4 (=>6mos) MDV 05/31/2020 Tdap 07/03/2022, 9,06/15/2015, 1 Family History Medical History Relation Name Comments Good Health Father Alcoholism Mother Good Health Mother Hernia Mother Relation Name Status Comments Father Mother Social History Tobacco Use Types Packs/Day Years Used Date Smoking Tobacco: Never Smokeless Tobacco: Never Tobacco Cessation:Counseling Given: Yes Alcohol Use Standard Drinks/Week Comments Not Currently 5 (1 standard drink = 0.6 oz pur e alcohol) binges at times tequila/wine PHQ-2 Answer Date Recorded PHQ-2 TOTAL SCORE 0 05/09/2023 Social Connections Answer Date Recorded Frequency of Communication with Friends and Fami ly 0 04/10/2023 Financial Resource Strain Answer Date R ecorded Difficulty of Paying Living Expenses 3 04/10/2023 Difficulty of Paying Living Expenses Not on file 04/10/2023 Food Insecurity Answer Date Recorded Worried About Running Out of Food in the Last Ye ar 1 04/10/2023 Transportation Needs Answer Date Record ed Lack of Transportation (Medical) 1 04/10/2023 Housing Stability Answer Date Recorded Unable to Pay for Housing in the Last Year 1 04/10/2023 Sex and Gender Information Value Date Recorded Sex Assigned at Not on file Gender Identity Not on file Sexual Orientation Not on file Obstetrics History Para Term AB IAB SAB Ectopic Multiple Livin g Live Births 5 3 3 0 2 2 0 0 0 3 3 Date Outcome GA Total Labor Labor/2nd/3rd Weight Sex Type Anes PTL Mikey A1 A5 Name Clin 2008 Term 38w 0d 3.52 kg (7 lb 12 oz) M Vag Epidur al Livin g 8 9 [place] Delivery Location:[place] Comments: tr ansfusion, chorio 2012 IAB 2015 Term 40w 6d 3.37 kg (7 lb 7 oz) F Vag Livin g storl ie Complications:None 2021 IAB ELECTI VE AB 2022 Term 37w 6d 2.95 kg (6 lb 8 oz) F VAGINA L ALL Epidur al N Livin g 7 9 Ebony Perez sa, MD Complications: Hem orrhage,Preeclampsia Delivery Location:Hospital ( [facility]) Comments:induced for p reeclampsia with severe features (proteinuria and headache/vision changes). No elevated BP. On Magnesium. Had hemorrhage with 300 QBL. Received 1 unit PRBCs Last Filed Vital Signs Vital Sign Reading Time Taken Comments Blood Pressure 109/67 01/27/2024 3:30 PM CDT Pulse 84 01/27/2024 3:30 PM CDT Temperature 36.7 ??C (98 ??F) 01/27/2024 3:30 PM CDT Respiratory Rate 16 01/27/2024 3:30 PM CDT Oxygen Saturation 99% 01/27/2024 3:30 PM CDT Inhaled Oxygen Concentration - - Weight 68.8 kg (151 lb 9.6 oz) 01/27/2024 3:30 P M CDT Height 158.8 cm (5' 2.5) 11/07/2023 1:25 PM CDT Body Mass Index 27.29 11/07/2023 1:25 PM CDT Plan of Treatment Upcoming Encounters Date Type Department Care Team (Late st Contact Info) Description 02/18/2024 8:45 AM CDT Office Visit [facility] [address] [place] [address] Nadine Higgins MD [address] [place] [address] Health Maintenance Due Date Last Done Comments COVID-19 vaccine series (2022-24 season) 2023 Pap test for age 21-65 10/23/2023 3, 10/22/2022, 06/20/2021, Additional history exists Influenza for age 9-49 04/18/2024 0, 04/03/2015, 05/02/2014, Additional history exists Depression screening for age 12+ 05/09/2024 05/09/2023, 10/24/2022, 10/24/2022, Additional history exists BMI (ht and wt on same day) for age 18+ 11/06/2024 11/07/2023, 07/03/2022, 06/20/2021, Additional history exists Tetanus booster 07/03/2032 07/03/2022, 09/19, 06/15/2015, Additional history exists Hepatitis C screening for age 18-79 Completed 02/20/2022, 04/27/2018, 04/27/2018 Tdap Completed 07/03/2022, 09/19, 06/15/2015, Additional history exists HIV for age 15-65 Completed 01/05/2024, , 04/27/2018, Additional history exists Pneumococcal series for age 6-64 Aged Out No longer eligible based on patient's age to complete this topic Procedures Procedure Name Priority Date/Time Associated Diagnosis Comments H PYLORI ANTIGEN,STOOL Today 9:40 AM CDT H. pylori infection MR SPINE LUMBAR WO Routine 01/08/2024 8: 16 AM CDT Numbness in both legs Chronic bilateral low back pain with bilateral sciatica Other urinary incontinence MR SPINE CERVICAL WO Routine 01/08/2024 7:40 AM CDT Right arm numbness Weakness of right arm CBC WITH AUTO DIFFERENTIAL Timed 01/05/2024 3:30 PM CDT Mild chronic anemia Leukopenia, unspecified type CREATININE Today 01/05/2024 3:30 PM CDT Mild chronic anemia Leukopenia, unspecified type TSH Today 01/05/2024 3:30 PM CDT Mild chronic anemia Leukopenia, unspecified type ANTI HBC Today 01/05/2024 3:30 PM CDT Mild chronic anemia Leukopenia, unspecified type ANTI HIV 1/2 Today 01/05/2024 3:30 PM CDT Mild chronic anemia Leukopenia, unspecified type BILIRUBIN,TOTAL/DIRECT Today 3:30 PM CDT Mild chronic anemia Leukopenia, unspecified type LD,TOTAL Today 01/05/2024 3:30 PM CDT Mild chronic anemia Leukopenia, unspecified type IRON PLUS IRON BINDING CAP Today 01/05/2024 3:30 PM CDT Mild chronic anemia Leukopenia, unspecified type FERRITIN Today 01/05/2024 3:30 PM CDT Mild chronic anemia Leukopenia, unspecified type RETICULOCYTES Today 01/05/2024 3:30 PM CDT Mild chronic anemia Leukopenia, unspecified type CBC WITH AUTO DIFFERENTIAL Today 01/05/2024 3:30 PM CDT Mild chronic anemia Leukopenia, unspecified type PERIPHERAL BLD MORPHOLOGY Today 01/05/2024 3:20 PM CDT Mild chronic anemia Leukopenia, unspecified type T4,FREE Routine 12/18/2023 1:39 PM CDT Hypothyroidism (acquired) TSH WITH REFLEX Routine 12/18/2023 1:39 PM CDT Hypothyroidism (acquired) XR SPINE LUMBAR 3 VIEWS Routine 12/18/19 24 1:33 PM CDT Chronic bilateral low back pain with bilateral sciatica Numbness in both legs XR SPINE CERVICAL 3 VIEWS Routine 12/18/2023 1:32 PM CDT Cervical spine pain Right arm numbness Weakness of right arm SCAN CORRESP-LABORATORY RESULTS 11/08/2023 12:00 AM CDT SCAN CORRESP-DIAGNOSTICS 11/08/2023 12:00 AM CDT TISSUE TRANSGLUTAMINASE IGA Routine 11/07/2023 2:20 PM CDT Gastric ulcer due to Helicobacter pylori, unspecified chronicity T4,FREE Routine 11/07/2023 2:20 PM CDT Hypothyroidism (acquired) VITAMIN D 25 (DEFICIENCY) Add On 11/07/2023 2:20 PM CDT Fatigue, unspecified type Screening for hypothyroidism CBC WITH AUTO DIFFERENTIAL Routine 11/07/2023 2:20 PM CDT Anemia, unspecified type MAGNESIUM Routine 11/07/2023 2:20 PM CDT Fatigue, unspecified type PHOSPHORUS Routine 11/07/2023 2:20 PM CDT Fatigue, unspecified type VITAMIN B12 Routine 11/07/2023 2:20 PM CDT Fatigue, unspecified type FERRITIN Routine 11/07/2023 2:20 PM CDT Fatigue, unspecified type HEMOGLOBIN A1C SCREENING Routine 11/07/2023 2:20 PM CDT Lipid screening LIPID PANEL W REFLEX MEASURED LDL Routine 11/07/2023 2:20 PM CDT Lipid screening TSH WITH REFLEX Routine 11/07/2023 2:20 PM CDT Hypothyroidism (acquired) CBC WITH AUTO DIFFERENTIAL Routine 11/07/2023 2:20 PM CDT Anemia, unspecified type COMP METABOLIC PANEL Routine 11/07/2023 2:20 PM CDT Elevated LFTs CELIAC CASCADE PANEL Routine 11/07/2023 2:20 PM CDT Gastric ulcer due to Helicobacter pylori, unspecified chronicity HPV THIN PREP Routine 10/22/2022 2:39 PM [employer]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 Screening for cervical cancer ANTI HCV Routine 02/20/2022 3:10 PM CDT Encounter for supervision of normal first in first trimester from Last 3 Months or Most Recently Relevant to Health Maintenance Results * (ABNORMAL) H PYLORI ANTIGEN,STOOL (01/08/2024 9:40 AM CDT) H PYLORI INTERPRETATION Positive( A) Negative 01/09/2024 2:49 PM CDT [facility] Comment:Indicates the presen ce of H Pylori stool antigen Stool STOOL SPECIMEN / Unknown Non-Blood / Unknown 01/08/2024 9:40 AM CDT 01/08/2024 10:44 AM CDT Narrative [facility] - 01/09/2024 2:49 PM CDT The Liaison?? [place] H Pylori SA assay has not been evaluated in a pediatric population. Nova Jones NP MICROBIOLOGY [facility] [address] [place] [id number], * MR SPINE LUMBAR WO (01/08/2024 8:16 AM CDT) Anatomical Region Laterality Modality Spine, LUMBAR SPINE Magnetic Res onance 01/08/2024 9:47 AM CDT Narrative 01/08/2024 9:47 AM CDT For Patients: ??As a result of the Cures Act, medical imaging exams and procedure reports are released immediately into your electronic medical record. ??You may view this report before your referring provider. ??If you have questions, please contact your health care provider. Indication: Numbness in both legs. Chronic bilateral low back pain and sciatica. Technique: Noncontrast sagittal and axial T1, T2, and sagittal STIR sequences are provided. Comparison: Lumbar radiographs 12/18/2023 Findings: Hypoplastic 12th ribs. There are 5 lumbar type vertebral bodies. Small Schmorl`s nodes in the L2, L3 and L4 superior endplates. The conus medullaris is normal in signal and location. No aggressive osseous lesions. Disc desiccation is most prominent at L4-5 and L5-S1 levels. No prevertebral or paraspinal edema. The sacroiliac joints are unremarkable. T11-12: Normal disc and facet joints. No spinal canal stenosis or neural foramen narrowing. T12-L1: Normal disc and facet joints. No spinal canal stenosis or neural foramina narrowing. L1-2: Mild disc desiccation. Mild left foraminal disc protrusion without significant spinal canal stenosis or neural foramen narrowing. L2-3: Normal disc and facet joints. No significant spinal canal stenosis or neural foramen narrowing. L3-4: Normal disc and facet joints. No significant spinal canal stenosis or neural foramen narrowing. L4-5: Disc desiccation. Small left intraforaminal disc protrusion contacts the exiting left L4 nerve roots and results in mild foraminal stenosis. No right neural foramen narrowing. L5-S1: Disc desiccation. Small right paracentral disc protrusion posteriorly displaces the traversing right S1 nerve roots. No neural foramen narrowing. Impression: 1. No acute osseous or ligamentous abnormality. 2. At L5-S1, small right paracentral disc protrusion posteriorly displaces the traversing right S1 nerve roots. 3. At L4-5, small left foraminal disc protrusion contacts the exiting left L4 nerve roots and results in mild foraminal stenosis. 4. At L1-2, small left foraminal disc protrusion without significant foraminal stenosis. 5. No intradural pathology. Dictated by Salvador Chauhan MD @ 01/08/2024 9:47:05 AM (Electronically Signed) Procedure Note Salvador Chauhan MD - 01/08/2024 For Patients: As a result of the Cures Act, medical imagingexams and procedure reports are released immediately into your electronicmedical record. You may view this report before your referring provider.If you have questions, please contact your health care provider. Indication: Numbness in both legs. Chronic bilateral low back pain and sciatica. Technique: Noncontrast sagittal and axial T1, T2, and sagittal STIR sequences areprovided. Comparison: Lumbar radiographs 12/18/2023 Findings: Hypoplastic 12th ribs. There are 5 lumbar type vertebral bodies. SmallSchmorl`s nodes in the L2, L3 and L4 superior endplates. The conusmedullaris is normal in signal and location. No aggressive osseouslesions. Disc desiccation is most prominent at L4-5 and L5-S1 levels. Noprevertebral or paraspinal edema. The sacroiliac joints are unremarkable. T11-12: Normal disc and facet joints. No spinal canal stenosis or neuralforamen narrowing. T12-L1: Normal disc and facet joints. No spinal canal stenosis or neuralforamina narrowing. L1-2: Mild disc desiccation. Mild left foraminal disc protrusion withoutsignificant spinal canal stenosis or neural foramen narrowing. L2-3: Normal disc and facet joints. No significant spinal canal stenosisor neural foramen narrowing. L3-4: Normal disc and facet joints. No significant spinal canal stenosisor neural foramen narrowing. L4-5: Disc desiccation. Small left intraforaminal disc protrusion contactsthe exiting left L4 nerve roots and results in mild foraminal stenosis. Noright neural foramen narrowing. L5-S1: Disc desiccation. Small right paracentral disc protrusionposteriorly displaces the traversing right S1 nerve roots. No neuralforamen narrowing. Impression: 1. No acute osseous or ligamentous abnormality. 2. At L5-S1, small right paracentral disc protrusion posteriorly displacesthe traversing right S1 nerve roots. 3. At L4-5, small left foraminal disc protrusion contacts the exiting leftL4 nerve roots and results in mild foraminal stenosis. 4. At L1-2, small left foraminal disc protrusion without significantforaminal stenosis. 5. No intradural pathology. Dictated by Salvador Chauhan MD @ 01/08/2024 9:47:05 AM (Electronically Signed) Nadine Higgins MD MR * MR SPINE CERVICAL WO (01/08/2024 7:40 AM CDT) Anatomical Region Laterality Modality Spine, CERVICAL SPINE Magnetic R esonance 01/08/2024 9:50 AM CDT Narrative 01/08/2024 9:50 AM CDT For Patients: ??As a result of the Cures Act, medical imaging exams and procedure reports are released immediately into your electronic medical record. ??You may view this report before your referring provider. ??If you have questions, please contact your health care provider. Indication: neck pain, right arm weakness and numbness Technique: Noncontrast sagittal T1, T2, STIR and axial T2 spin echo and GRE sequences are provided. Comparison: No prior studies available for comparison at this institution. Findings: Normal cervical spine alignment. Vertebral body heights are maintained. No fracture. No prevertebral or paraspinal edema. No aggressive osseous lesions. The craniocervical junction is unremarkable. No abnormal spinal cord signal. C1-2: No spinal canal stenosis C2-3: Normal disc and facet joints. No significant spinal canal stenosis or neural foramen narrowing. C3-4: Normal disc and facet joints. No significant spinal canal stenosis or neural foramen narrowing. C4-5: Normal disc and facet joints. No significant spinal canal stenosis or neural foramen narrowing. C5-6: Normal disc and facet joints. No significant spinal canal stenosis or neural foramen narrowing. C6-7: Normal disc and facet joints. No significant spinal canal stenosis or neural foramen narrowing. C7-T1: Normal disc and facet joints. No significant spinal canal stenosis or neural foramen narrowing. Impression : 1. Normal alignment. No acute osseous or ligamentous abnormality. 2. No suspicious disc bulge or herniation. No significant spinal canal stenosis or neural foramen narrowing. 3. No abnormal spinal cord signal. No intradural pathology. Dictated by Salvador Chauhan MD @ 01/08/2024 9:50:10 AM (Electronically Signed) Procedure Note Salvador Chauhan MD - 01/08/2024 For Patients: As a result of the Cures Act, medical imagingexams and procedure reports are released immediately into your electronicmedical record. You may view this report before your referring provider.If you have questions, please contact your health care provider. Indication: neck pain, right arm weakness and numbness Technique: Noncontrast sagittal T1, T2, STIR and axial T2 spin echo and GRE sequencesare provided. Comparison: No prior studies available for comparison at this institution. Findings: Normal cervical spine alignment. Vertebral body heights are maintained. Nofracture. No prevertebral or paraspinal edema. No aggressive osseouslesions. The craniocervical junction is unremarkable. No abnormal spinalcord signal. C1-2: No spinal canal stenosis C2-3: Normal disc and facet joints. No significant spinal canal stenosisor neural foramen narrowing. C3-4: Normal disc and facet joints. No significant spinal canal stenosisor neural foramen narrowing. C4-5: Normal disc and facet joints. No significant spinal canal stenosisor neural foramen narrowing. C5-6: Normal disc and facet joints. No significant spinal canal stenosisor neural foramen narrowing. C6-7: Normal disc and facet joints. No significant spinal canal stenosisor neural foramen narrowing. C7-T1: Normal disc and facet joints. No significant spinal canal stenosisor neural foramen narrowing. Impression : 1. Normal alignment. No acute osseous or ligamentous abnormality. 2. No suspicious disc bulge or herniation. No significant spinal canalstenosis or neural foramen narrowing. 3. No abnormal spinal cord signal. No intradural pathology. Dictated by Salvador Chauhan MD @ 01/08/2024 9:50:10 AM (Electronically Signed) Nadine Higgins MD MR * (ABNORMAL) CBC WITH AUTO DIFFERENTIAL (01/05/2024 3:30 PM CDT) Only the most recent of2 resultswithin the time period is included. WHITE BLOOD COUNT 2.6(L) 4.5 - 11.0 thou/cu mm 01/05/2024 3:36 PM T [facility] RED BLOOD COUNT 3.27(L) 4.00 - 5.20 mil/cu mm 01/05/2024 3:36 PM [facility] HEMOGLOBIN 9.7(L) 12.0 - 16.0 g/dL 01/05/2024 3:36 PM [facility] HEMATOCRIT 30.6(L) 33.0 - 51.0 % 01/05/2024 3:36 PM [facility] MCV 94 80 - 100 fL 01/05/2024 3:36 PM [facility] MCH 29.7 26.0 - 34.0 pg 01/05/2024 3:36 PM [facility] MCHC 31.7(L) 32.0 - 36.0 g/dL 01/05/2024 3:36 PM [facility] RDW 12.7 11.5 - 15.5 % 01/05/2024 3:36 PM [facility] PLATELET COUNT 159 140 - 440 thou/cu mm 01/05/2024 3:36 PM [facility] MPV 9.3 6.5 - 11.0 fL 01/05/2024 3:36 PM [facility] % NEUT 43.8 % 01/05/2024 3:36 PM [facility] % LYMPH 41.4 % 01/05/2024 3:36 PM [facility] % MONO 13.3 % 01/05/2024 3:36 PM [facility] % EOS 1.5 % 01/05/2024 3:36 PM [facility] % BASO 0.0 % 01/05/2024 3:36 PM [facility] ABSOLUTE NEUTROPHILS 1.2(L) 1.7 - 7.0 thou/cu mm 01/05/2024 3:36 PM [facility] ABSOLUTE LYMPHOCYTES 1.1 0.9 - 2.9 thou/cu mm 01/05/2024 3:36 PM [facility] ABSOLUTE MONOCYTES 0.4 <0.9 thou/cu mm 01/05/2024 3:36 PM [facility] ABSOLUTE EOSINOPHILS 0.0 <0.5 thou/cu mm 01/05/2024 3:36 PM [facility] ABSOLUTE BASOPHILS 0.0 <0.3 thou/cu mm 01/05/2024 3:36 PM [facility] Blood BLOOD SPECIMEN / Unknown Venipuncture / Unknown 01/05/2024 3:30 PM CDT 01/05/2024 3:[address] [facility] - 01/05/2024 3:36 PM CDT This procedure was originally ordered at [facility]. This procedure was originally ordered at [facility]. Nova Jones NP HEMATOLOGY Performing Organization Address [facility]/ZIP Co de Phone Number [facility] [address] [place] [address] * (ABNORMAL) TSH (01/05/2024 3:30 PM CDT) TSH 160.00(H) 0.27 - 4.20 uIU/mL 01/05/2024 4:28 PM CDT [facility] Blood BLOOD SPECIMEN / Unknown Venipuncture / Unknown 01/05/2024 3:30 PM CDT 01/05/2024 3:[address] [facility] - 01/05/2024 4:28 PM CDT In Adults, TSH values between 5.00 and 10.00 uIU/ml do not necessarily indicate the presence of Hypothyroidism. Correlation with clinical findings such as presence of goiter and/or Thyroperoxidase (TPO) Antibody may be helpful. For more information please refer to CHRISTINA 2004; 291: [phone]. Nova Jones NP CHEMISTRY Performing Organization Address [facility]/ZIP Co de Phone Number [facility] [address] [place] [id number] * BILIRUBIN,TOTAL/DIRECT (01/05/2024 3:30 PM CDT) BILIRUBIN,TOTA L 0.3 0.0 - 1.2 mg/dL 01/05/2024 4:04 PM CDT [facility] BILIRUBIN,DIRE CT <0.2 0.0 - 0.3 mg/dL 01/05/2024 4:04 PM CDT [facility] BILIRUBIN,LIANG RECT 01/05/2024 4:04 PM CDT [facility] Comment:Unable to calculate, Direct Bili <0.2 Blood BLOOD SPECIMEN / Unknown Venipuncture / Unknown 01/05/2024 3:30 PM CDT 01/05/2024 3:31 PM CDT Nova Salazary SALARY MANAGER CHEMISTRY Performing Organization Address City/[facility]/ZIP Co de Phone Number [facility] [address] [place] [address] * (ABNORMAL) IRON PLUS IRON BINDING CAP (01/05/2024 3:30 PM CDT) Pathologist [facility] IRON 32(L) 37 - 145 ug/dL 01/06/2024 12:56 PM CDT [facility] UIBC (UNSATURATED) 255 112 - 347 ug/dL 01/06/2024 12:56 PM CDT [facility] IRON BINDING CAPACITY 287 250 - 400 ug/dL 01/06/2024 12:56 PM CDT [facility] IRON,% SATURATION 11(L) 14 - 50 % 01/06/2024 12:56 PM CDT [facility] Blood BLOOD SPECIMEN / Unknown Venipuncture / Unknown 01/05/2024 3:30 PM CDT 01/05/2024 3:31 PM CDT Nova Salazarraffaele SALARY MANAGER CHEMISTRY Performing Organization Address City/[facility]/ZIP Co de Phone Number [facility] [address] [place] [address], * (ABNORMAL) LD,TOTAL (01/05/2024 3:30 PM CDT) LD,TOTAL 594(H) 135 - 214 IU/L 01/05/2024 4:49 PM CDT [facility] Blood BLOOD SPECIMEN / Unknown Venipuncture / Unknown 01/05/2024 3:30 PM CDT 01/05/2024 3:31 PM CDT Nova L Martiny SALARY MANAGER CHEMISTRY Performing Organization Address City/[facility]/ZIP Co de Phone Number [facility] [address] [place] [address] * CREATININE (01/05/2024 3:30 PM CDT) [facility] eGFR >90 >90 mL/min/1.7 3m2 01/05/2024 4:04 PM CDT [facility] Comment:As of 2021, eG FR is calculated by the CKD-EPI creatinine equation without race adjustment. ??eGFR can be influenced by muscle mass, exercise, and diet. ??The reported eGFR is an estimation only and is only applicable if the renal function is stable. CREATININE 0.71 0.50 - 0.90 mg/dL 01/05/2024 4:04 PM CDT [facility] Blood BLOOD SPECIMEN / Unknown Venipuncture / Unknown 01/05/2024 3:30 PM CDT 01/05/2024 3:31 PM CDT Nova Jones NP CHEMISTRY Performing Organization Address City/[facility]/ZIP Co de Phone Number [facility] [address] [place] [address] * ANTI HBC (01/05/2024 3:30 PM CDT) [facility] ANTI HBC Non-React el Non-React el 01/06/2024 2:26 PM CDT [facility] Comment:Anti-HBc Antibodies not detected. Does not exclude the possibility of exposure to or infection with HBV. Levels of Anti-HBc may be below the cut-off in early infection. Blood BLOOD SPECIMEN / Unknown Venipuncture / Unknown 01/05/2024 3:30 PM CDT 01/05/2024 3:31 PM CDT Nova Jones NP [facility] [address] [place] [address], [place] * ANTI HIV 1/2 (01/05/2024 3:30 PM CDT) [facility] HIV-1/HIV-2 SCREEN Non-Reacti ve Non-Reacti ve 01/06/2024 2:26 PM CDT [facility] Comment:HIV-1 p24 and HIV-1/ HIV-2 Ab Not Detected. Blood BLOOD SPECIMEN / Unknown Venipuncture / Unknown 01/05/2024 3:30 PM CDT 01/05/2024 3:31 PM CDT Nova Jones SALARY MANAGER SEND OUTS Performing Organization Address [facility] de Phone Number [facility] [address] [address], [place] * RETICULOCYTES (01/05/2024 3:30 PM CDT) RETIC% 0.8 0.5 - 1.5 % 01/06/2024 1:22 PM CDT [facility] RETIC (ABSOLUTE) 0.03 0.03 - 0.08 mil/cu mm 01/06/2024 1:22 PM CDT [facility] Blood BLOOD SPECIMEN / Unknown Venipuncture / Unknown 01/05/2024 3:30 PM CDT 01/05/2024 3:31 PM CDT Narrative [facility] - 01/06/2024 1:22 PM CDT This procedure was originally ordered at [facility]. Nova Jones NP HEMATOLOGY Performing Organization Address [facility] de Phone Number [facility] [address] [place] [address], * (ABNORMAL) FERRITIN (01/05/2024 3:30 PM CDT) Only the most recent of2 resultswithin the time period is included. FERRITIN 8.7(L) 15.0 - 150.0 ng/mL 01/06/2024 12:57 PM CDT [facility] Blood BLOOD SPECIMEN / Unknown Venipuncture / Unknown 01/05/2024 3:30 PM CDT 01/05/2024 3:31 PM CDT Nova Jones NP CHEMISTRY [facility]AL LAB[facility]ATORY [address] [place] [address], * PERIPHERAL BLD MORPHOLOGY (01/05/2024 3:20 PM CDT) Case Report Special Hematology Report ? Case: [id number] ? Authorizing Provider: ??Nova Jones, KARINA ? Collected: ? 01/05/2024 1520 ? Ordering Location: ? [facility] ? Received: ?01/05/2024 1530 ? [place] [facility] [place] ? Pathologist: ? Radhames Osman, ? Specimen: ?Blood ? 01/07/2024 10:31 AM CDT [facility]-C ENTRAL LABORATORY Final Diagnosis PERIPHERAL BLOOD: 1. Moderate normocytic anemia consistent with iron deficiency anemia 2. Leukopenia reflecting mild absolute neutropenia 3. See comment 01/07/2024 10:31 AM T [facility]-C ENTRAL LABORATORY Comment The presence of anemia in association with the patient's decreased ferritin level (ferritin = 8.7 ng/ml) is consistent with iron deficiency anemia. The most common cause for iron deficiency is occult anatomic blood loss. Other etiologies include deficient nutritional intake, and malabsorption issues (Helicobactor pylori, gastric bypass, Crohn's disease, celiac sprue, excessive use of antacids containing calcium carbonate). There are no features of hemolysis. The features of the neutropenia are nonspecific. The most common etiology for neutropenia in the adult population is medication effect. Immune-mediated processes and hypersplenism are also in the differential. Transient neutropenia can also be seen in settings of infection. There are no features to suggest a primary bone marrow disorder. 01/07/2024 10:31 AM T [facility]-C ENTRAL LABORATORY Clinical Information The patient is a 33-year-old female. Pertinent clinical information: Anemia and leukopenia with previously untreated H. pylori. Per EPIC: Additional history includes hypertension, hypothyroidism, mild protein calorie malnutrition, Graves' disease, and major depressive disorder. Peripheral blood morphology 2019 ([id number]) showed a moderate normocytic anemia. 01/05/24 15:30 FERRITIN: ?8.7 (L) IRON: ?32 (L) IRON BINDING CAPACITY ?: 287 IRON,% SATURATION ?: 11 (L) UIBC (UNSATURATED) ? : 255 LD,TOTAL: ?594 (H) 01/07/2024 10:31 AM T [facility] LABORAT[facility]-C ENTRAL LABORATORY CBC and Differential HEMATOLOGY PARAMETERS Tested at: ??[facility] ? RESULTS ??EXPECTED VALUES WBC: ? 2.6 ?4.5-20v9881/cu mm ?DECREASED RBC: ? 3.27 ?4.00-5.20 mil/cummDECREASE D HGB: ? 9.7 ?12-16 gm/dl ? DECREASED HCT: ? 30.6 ? 33-51% ?DECREASED MCV: ? 94.0 ? 80-100 fl ? NORMOCYTIC MCH: ? 29.7 ? 26-34 pg ? MCHC: ?31.7 ? 32-36 gm/dl ? HYPOCHROMIC RDW: ? 12.7 ? 11.5-15.5% ? PLT: ? 159 ?140-315q9976/u L ? MPV: ? 9.3 ?6.5-11 fl ? Retic: ?? 0.8 ?0.5-1.5% ? Differential ?Tested at: ??Central ?Absolute (%) ?Expected (%) ?(x10*9/L) ? (x10*9/L) Neutrophils: ?1.2 (46.2) ?1.7-7.0 (42-72%) ?DECREASED Lymphocytes: ?1.1 (42.3) ?0.9-2.9 (20-44%) ?? Monocytes: ?0.4 (15.4) ? <0.9 (0-11%) ? Eosinophils: ?0.0 (0) ?<0.5 (0-2%) ? Basophils: ?0.0 (0) ?<0.3 (<3.0%) ? Imm Grans: ?0.0 (0) ?<0.3 (0-3%) ? (Metas, Myelos,Pros) 01/07/2024 10:31 AM CDT [facility]-C ENTRAL LABORATORY Microscopic Description The final diagnosis is based on microscopic examination of appropriate sections of all specimens. 01/07/2024 10:31 AM CDT [facility]-C ENTRAL LABORATORY Additional Information Interpreted at [facility], Central Laboratory - [address] [place] [id number] 01/07/2024 10:31 AM T [facility]-C ENTRAL LABORATORY Blood BLOOD SPECIMEN / Unknown 01/05/2024 3:20 PM CDT 01/05/2024 3:30 PM CDT Comment:CURRENT MEDICATIONSC urrent Outpatient Medications: ? ? cholecalciferol (Vitamin D-3) 2,000 unit capsule, Take 1 Capsule (2,000 units) by mouth once daily. To be started after 8 weeks on the [address]755 weekly dosing. (Patient not taking: Reported on 01/05/2024), Disp: 90 Capsule, Rfl: 3? ? cholecalciferol (VITAMIN D3) 50,000 unit capsule, Take 1 Capsule (50,000 units) by mouth once weekly. (Patient not taking: Reported on 01/05/2024), Disp: 8 Capsule, Rfl: 0? ? ferrous sulfate 325 mg delayed release tablet, Take 1 Tablet (325 mg) by mouth once every other day. (Patient not taking: Reported on 01/05/2024), Disp: 90 Tablet, Rfl: 3? ? fluticasone (50 mcg per actuation) nasal solution (FLONASE), Inhale 2 Sprays to both nostrils once daily. (Patient not taking: Reported on 01/05/2024), Disp: 16 g, Rfl: 0? ? hydrOXYzine HCL (ATARAX) 25 mg tablet, Take 1-2 Tablets (25-50 mg) by mouth every 6 hours if needed for Anxiety (panic. May also use prn for sleep)., Disp: 90 Tablet, Rfl: 0? ? levothyroxine (SYNTHROID) 100 mcg tablet, Take 1 Tablet (100 mcg) by mouth before breakfast., Disp: 90 Tablet, Rfl: 0? ? lidocaine 5 % topical patch, Apply on dry, clean, hairless skin. Apply 1 patch to painful area of skin for up to to 12 hours within 24 hour period. (Patient not taking: Reported on 01/05/2024), Disp: 30 Patch, Rfl: 11? ? omeprazole (PRILOSEC) 20 mg Delayed-Release capsule, Take 1 Capsule (20 mg) by mouth once daily before a meal. Take 30 minutes prior to a meal (Patient not taking: Reported on 01/05/2024), Disp: 90 Capsule, Rfl: 3? ? ondansetron (ZOFRAN ODT) 4 mg disintegrating tablet, Place 1 Tablet (4 mg) on the tongue every 8 hours if needed for Nausea/Vomiting. (Patient not taking: Reported on 01/05/2024), Disp: 30 Tablet, Rfl: 0? ? vit calc,iron,folic (PRENAT.VITS,MANUEL,GAE-FUUW-HPTHX ORAL), , Disp: , Rfl: ? ? wibtulk-diog-zdmza acid (PREPLUS;NATALCARE PLUS) 27 mg iron- 1 mg tablet, Take 1 Tablet by mouth once daily. (Patient not taking: Reported on 01/05/2024), Disp: 90 Tablet, Rfl: 0? ? SUMAtriptan (IMITREX) 25 mg tablet, Take 1 tab by mouth at onset of symptoms. Take another tablet if needed at minimum 2hrs apart. Max Dose: 200mg per 24hrs., Disp: 12 Tablet, Rfl: 3This procedure was originally ordered at [facility]. Nova Jones NP HEMATOLOGY [facility] [address] [address], [place] * (ABNORMAL) TSH WITH REFLEX (12/18/2023 1:39 PM CDT) Only the most recent of2 resultswithin the time period is included. TSH 148.00(H) 0.27 - 4.20 uIU/mL 12/18/2023 10:19 PM CDT [facility] Blood BLOOD SPECIMEN / Unknown Venipuncture / Unknown 12/18/2023 1:39 PM CDT 12/18/2023 1:41 PM CDT Narrative [facility] - 12/18/2023 10:19 PM CDT In Adults, TSH values between 5.00 and 10.00 uIU/ml do not necessarily indicate the presence of Hypothyroidism. Correlation with clinical findings such as presence of goiter and/or Thyroperoxidase (TPO) Antibody may be helpful. For more information please refer to CHRISTINA 2004; 291: 228-238. Nadine Higgins MD CHEMISTRY Performing Organization Address [facility] de Phone Number [facility] [address] [place] [address], [place] * (ABNORMAL) T4,FREE (12/18/2023 1:39 PM CDT) Only the most recent of2 resultswithin the time period is included. T4,FREE 0.40(L) 0.93 - 1.70 ng/dL 12/18/2023 11:30 PM CDT [facility] Blood BLOOD SPECIMEN / Unknown Venipuncture / Unknown 12/18/2023 1:39 PM CDT 12/18/2023 1:41 PM CDT Nadine Higgins MD CHEMISTRY Performing Organization Address [facility] Co de Phone Number [facility] [address] [place] [phone], [place] * XR SPINE LUMBAR 3 VIEWS (12/18/2023 1:33 PM CDT) Anatomical Region Laterality Modality LUMBAR SPINE Computed Radiogr aphy 12/18/2023 3:34 PM CDT Impressions 12/18/2023 3:34 PM CDT Possible mild wedge compression deformity of the L2 superior endplate versus artifact. If symptoms continue, would suggest MRI for further evaluation to exclude fracture. Dictated by Salvador Ortiz MD @ 12/18/2023 3:34:23 PM (Electronically Signed) Narrative 12/18/2023 3:34 PM CDT For Patients: ??As a result of the Cures Act, medical imaging exams and procedure reports are released immediately into your electronic medical record. ??You may view this report before your referring provider. ??If you have questions, please contact your health care provider. INDICATION: Chronic bilateral low back pain TECHNIQUE: 3-view lumbar spine. COMPARISON: none FINDINGS: Postop changes cholecystectomy. Increased stool in the colon. Mild subtle deformity of the L2 superior endplate may be present. Disc spaces and facet joints normal. No pars defect or spondylolisthesis. Procedure Note Salvador Ortiz MD - 12/18/2023 For Patients: As a result of the Cures Act, medical imagingexams and procedure reports are released immediately into your electronicmedical record. You may view this report before your referring provider.If you have questions, please contact your health care provider. INDICATION: Chronic bilateral low back pain TECHNIQUE: 3-view lumbar spine. COMPARISON: none FINDINGS: Postop changes cholecystectomy. Increased stool in the colon. Mild subtledeformity of the L2 superior endplate may be present. Disc spaces andfacet joints normal. No pars defect or spondylolisthesis. IMPRESSION: Possible mild wedge compression deformity of the L2 superior endplateversus artifact. If symptoms continue, would suggest MRI for furtherevaluation to exclude fracture. Dictated by Salvador Ortiz MD @ 12/18/2023 3:34:23 PM (Electronically Signed) Nadine Higgins MD GENERAL IMAGING * XR SPINE CERVICAL 3 VIEWS (12/18/2023 1:32 PM CDT) Anatomical Region Laterality Modality CERVICAL SPINE Computed Radiogr aphy 12/18/2023 3:32 PM CDT Impressions 12/18/2023 3:32 PM CDT Unremarkable cervical spine. Dictated by Salvador Ortiz MD @ 12/18/2023 3:32:20 PM (Electronically Signed) Narrative 12/18/2023 3:32 PM CDT For Patients: ??As a result of the Cures Act, medical imaging exams and procedure reports are released immediately into your electronic medical record. ??You may view this report before your referring provider. ??If you have questions, please contact your health care provider. INDICATION: Right arm weakness, numbness TECHNIQUE: Cervical spine 3 view. COMPARISON: None FINDINGS: Bones: Alignment is normal. ??No fractures or significant bone lesions. ?? Joints: Disc spaces and facets are unremarkable. ?? Soft tissues: Unremarkable. Procedure Note Salvador Ortiz MD - 12/18/2023 For Patients: As a result of the Cures Act, medical imagingexams and procedure reports are released immediately into your electronicmedical record. You may view this report before your referring provider.If you have questions, please contact your health care provider. INDICATION: Right arm weakness, numbness TECHNIQUE: Cervical spine 3 view. COMPARISON: None FINDINGS: Bones: Alignment is normal. No fractures or significant bone lesions. Joints: Disc spaces and facets are unremarkable. Soft tissues: Unremarkable. IMPRESSION: Unremarkable cervical spine. Dictated by Salvador Ortiz MD @ 12/18/2023 3:32:20 PM (Electronically Signed) Nadine Higgins MD GENERAL IMAGING * SCAN CORRESP-LABORATORY RESULTS (11/08/2023 12:00 AM CDT) Scanner OTHER * SCAN CORRESP-DIAGNOSTICS (11/08/2023 12:00 AM CDT) Scanner OTHER * (ABNORMAL) CELIAC CASCADE PANEL (11/07/2023 2:20 PM CDT) IGA 504.88(H) 84.50 - 499.00 mg/dL 11/10/2023 8:01 AM CDT [facility] Blood BLOOD SPECIMEN / Unknown Venipuncture / Unknown 11/07/2023 2:20 PM CDT 11/07/2023 2:21 PM CDT Narrative [facility] - 11/10/2023 8:01 AM CDT Reflexed to Tissue Transglutaminase IgA Nadine Higgins MD SEND OUTS Performing Organization Address City/[facility]/ZIP Co de Phone Number [facility] [address] [place] [address], * HEMOGLOBIN A1C SCREENING (11/07/2023 2:20 PM CDT) HEMOGLOBIN A1C SCREENING 5.6 <=6.4 % 11/07/2023 10:07 PM CDT [facility] Blood BLOOD SPECIMEN / Unknown Venipuncture / Unknown 11/07/2023 2:20 PM CDT 11/07/2023 2:21 PM CDT Narrative [facility] - 11/07/2023 10:07 PM CDT ? (<5.7%) ?Normal ? (5.7% to 6.4%) ? Indicates prediabetes ? (>=6.5%) ? Confirms diabetes Falsely low levels may be seen with: Recent Transfusion, Recent Significant Blood Loss, Hemolytic Diseases, or Falsely elevated levels may be seen with: Untreated Anemias, Splenectomy Nadine Higgins MD CHEMISTRY Performing Organization Address [facility] Co de Phone Number [facility] [address] [place] [address], * (ABNORMAL) LIPID PANEL W REFLEX MEASURED LDL (11/07/2023 2:20 PM CDT) CHOLESTEROL,TOTAL 175 100 - 199 mg/dL 11/07/2023 10:12 PM CDT [facility] Comment: Cholesterol, Total Reference Ranges Desirable <200 mg/dL Borderline 200-239 mg/dL High >=240 mg/dL TRIGLYCERIDES 178(H) <150 mg/dL 11/07/2023 10:12 PM CDT [facility] HDL CHOLESTEROL 43 >40 mg/dL 10:12 PM CDT [facility] NON-HDL CHOLESTEROL 132 <145 mg/dl 11/07/2023 10:12 PM CDT [facility] CHOL/HDL RATIO 4.07 <4.50 11/07/2023 10:12 PM CDT [facility] LDL CHOLESTEROL 96 <=130 mg/dL 11/07/2023 10:12 PM CDT [facility] VLDL CHOLESTEROL 36(H) <=30 mg/dL 11/07/2023 10:12 PM CDT [facility] PROVIDER ORDERED STATUS RANDOM 11/07/2023 10:12 PM CDT [facility] Blood BLOOD SPECIMEN / Unknown Venipuncture / Unknown 11/07/2023 2:20 PM CDT 11/07/2023 2:21 PM CDT Nadine Higgins MD CHEMISTRY [facility] [address] [place] [id number], * (ABNORMAL) VITAMIN D 25 (DEFICIENCY) (11/07/2023 2:20 PM CDT) VITAMIN D TOTAL 15.2(L) 20.0 - 80.0 ng/mL 11/07/2023 9:49 PM CDT [facility] Blood BLOOD SPECIMEN / Unknown Venipuncture / Unknown 11/07/2023 2:20 PM CDT 11/07/2023 2:21 PM CDT Narrative [facility] - 11/07/2023 9:49 PM CDT ? Vitamin D Status Deficiency: ? <20 ng/mL Insufficiency: ?20-29 ng/mL Sufficiency: ?30-80 ng/mL Possible Toxicity: ??>80 ng/mL Based on [place] [employer] recommendations Biotin supplements may cause clinically significant interference for this test assay. ??If interference is suspected, it is strongly recommended that biotin is discontinued for at least one week prior to retesting. Nadine Higgins MD SEND OUTS Performing Organization Address City/[facility]/ZIP Co de Phone Number [facility] [address] [place] [address], * TISSUE TRANSGLUTAMINASE IGA (11/07/2023 2:20 PM CDT) TISSUE TRANSGLUTAMINASE IGA <1.2 <4.0 U/ml 11/10/2023 1:28 PM CDT [facility] Comment:Celiac disease unlik eleno unless IgA deficient. Recommend IgA levels if not already performed. Blood BLOOD SPECIMEN / Unknown Venipuncture / Unknown 11/07/2023 2:20 PM CDT 11/07/2023 2:21 PM CDT Narrative [facility] - 11/10/2023 1:28 PM CDT Negative ?<4.0 Weak Positive ?? 4-10 Positive ?>10.0 This test should not be solely relied upon to establish a diagnosis of celiac disease. Affected individuals who have been on a gluten-free diet prior to testing may have a negative result. These results were obtained using the [employer] Quanta Lite R h-tTG IgA NAIDA assay. ??Values obtained from other manufacturers' assay methods may not be used interchangeably. Nadine Higgins MD SEND OUTS Performing Organization Address City/[facility]/ZIP Co de Phone Number [facility] [address] [place] [address], * PHOSPHORUS (11/07/2023 2:20 PM CDT) PHOSPHORUS 2.5 2.5 - 4.5 mg/dL 11/07/2023 10:12 PM CDT [facility] Blood BLOOD SPECIMEN / Unknown Venipuncture / Unknown 11/07/2023 2:20 PM CDT 11/07/2023 2:21 PM CDT Nadine Higgins MD CHEMISTRY Performing Organization Address City/[facility]/ZIP Co de Phone Number [facility] [address] [address], [place] * MAGNESIUM (11/07/2023 2:20 PM CDT) MAGNESIUM 2.1 1.6 - 2.6 mg/dL 11/07/2023 10:12 PM CDT [facility] Blood BLOOD SPECIMEN / Unknown Venipuncture / Unknown 11/07/2023 2:20 PM CDT 11/07/2023 2:21 PM CDT Nadine Higgins MD CHEMISTRY Performing Organization Address [facility] Phone Number [facility] [address] [place], [place] [id number], [place] * VITAMIN B12 (11/07/2023 2:20 PM CDT) VITAMIN B12 395 232 - 1,245 pg/mL 11/07/2023 10:12 PM CDT [facility] Blood BLOOD SPECIMEN / Unknown Venipuncture / Unknown 11/07/2023 2:20 PM CDT 11/07/2023 2:21 PM CDT Narrative [facility] - 11/07/2023 10:12 PM CDT Biotin supplements may cause clinically significant interference for this test assay. ??If interference is suspected, it is strongly recommended that biotin is discontinued for at least one week prior to retesting. Nadine Higgins MD CHEMISTRY Performing Organization Address [facility] Co de Phone Number [facility] [address] [place] [id number], [place] * COMP METABOLIC PANEL (11/07/2023 2:20 PM CDT) SODIUM 141 136 - 145 mmol/L 11/07/2023 10:12 PM T [facility] POTASSIUM 3.9 3.5 - 5.1 mmol/L 11/07/2023 10:12 PM [facility] CHLORIDE 106 98 - 107 mmol/L 11/07/2023 10:12 PM [facility] CO2,TOTAL 24 22 - 29 mmol/L 11/07/2023 10:12 PM [facility] ANION GAP 11 5 - 18 11/07/2023 10:12 PM [facility] GLUCOSE 82 70 - 99 mg/dL 11/07/2023 10:12 PM [facility] CALCIUM 8.9 8.6 - 10.0 mg/dL 11/07/2023 10:12 PM [facility] BUN 10 6 - 20 mg/dL 11/07/2023 10:12 PM [facility] CREATININE 0.77 0.50 - 0.90 mg/dL 11/07/2023 10:12 PM [facility] BUN/CREAT RATIO 13 10 - 20 10:12 PM [facility] eGFR >90 >90 mL/min/1.7 3m2 11/07/2023 10:12 PM [facility] Comment:As of 2021, eG FR is calculated by the CKD-EPI creatinine equation without race adjustment. ??eGFR can be influenced by muscle mass, exercise, and diet. ??The reported eGFR is an estimation only and is only applicable if the renal function is stable. ALBUMIN 4.6 4.0 - 4.9 g/dL 11/07/2023 10:12 PM [facility] PROTEIN,TOTAL 7.4 6.0 - 8.0 g/dL 11/07/2023 10:12 PM [facility] BILIRUBIN,TOTAL 0.5 0.0 - 1.2 mg/dL 11/07/2023 10:12 PM CDT [facility] ALK PHOSPHATASE 47 35 - 104 IU/L 11/07/2023 10:12 PM CDT [facility] ALT (SGPT) 26 10 - 35 IU/L 11/07/2023 10:12 PM CDT [facility] AST (SGOT) 25 10 - 35 IU/L 11/07/2023 10:12 PM CDT [facility] Blood BLOOD SPECIMEN / Unknown Venipuncture / Unknown 11/07/2023 2:20 PM CDT 11/07/2023 2:21 PM CDT Nadine Higgins MD CHEMISTRY Performing Organization Address [facility]/ZIP Co de Phone Number [facility] [address] [place] [address], * HPV HIGH RISK (10/22/2022 2:39 PM DRIVER'S ED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) TYPE 16 Negative Negative 10/24/2022 5:49 PM DRIVER'S ED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 [facility] TYPE 18 Negative Negative 10/24/2022 5:49 PM DRIVER'S ED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 [facility] OTHER HIGH RISK TYPES Negative Negative 10/24/2022 5:49 PM DRIVER'S ED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 [facility] Other (Cervical) Non-Blood / Unknown 10/22/2022 2:39 PM DRIVER'S ED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 10/23/2022 2:00 PM DRIVER'S ED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 Narrative [facility] - 10/24/2022 5:49 PM DRIVER'S ED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 HPV types 16, 18, 31, 33, 35, 39, 45, 51, 52, 56, 58, 59, 66 and 68 DNA were undetectable or below the pre-set threshold. Methodology: Aldo Nadeen 4800 HPV Test Nadine Higgins MD MICROBIOLOGY [facility] [address] [place] [address], [place] * ANTI HCV (02/20/2022 3:10 PM CDT) HEPATITIS C ANTIBODY Non-React el Non-React el 02/21/2022 10:05 AM CDT [facility] Comment:Antibodies to HCV no t detected; does not exclude the possibility of exposure to HCV. Blood BLOOD SPECIMEN / Unknown IV Start / Unknown 02/20/2022 3:10 PM CDT 02/20/2022 3:18 PM CDT Anastasiia Dea Hemalatha DO SEND OUTS [facility] [address] [place] [address], from Last 3 Months or Most Recently Relevant to Health Maintenance Advance Directives * Full Code (Latest Code Status on File) Date Activated Date Inactivated Comments 06/23/2018 10:42 PM 06/26/2018 1:11 PM * Full Code Date Activated Date Inactivated Comments 05/18/2018 10:59 PM 05/22/2018 4:39 PM Care Teams Infantryman Relationship Specialty Start Date End Date Nadine Higgins MD [address] [place] [id number] PCP - General Family Practice 07/03/22 Martell Garcia MD Endocrinology Endocrinology 08/20/12 Nova Jones NP [address] [place] [address] Nurse Practitioner Hematology 01/14/24 Liv Soto MD [address] [place], [place] [address]PREETHI Ibarra [id number] Medical Oncologist Hematology 01/14/24
[2024-01-30 00:30] VITALS: BP 126/69; PULSE 76; RESP 18; O2SAT 100
--- NOTE | 2024-01-30 00:51 | ED_ITS ---
HPI - General Adult General Date Seen: 01/30/24 Chief complaint: Shortness of Breath/Dyspnea Stated complaint: difficulty breathing Time Seen by Provider: 01/30/24 00:03 Source: patient Mode of arrival: ambulatory Limitations: no limitations History of Present Illness HPI narrative: Patient is a 33-year-old female who had wisdom teeth extracted earlier today. She comes in hyperventilating and feeling short of breath. She has come down considerably since her arrival. He says the same thing happened last time she was given penicillin product. She is concerned because she did fall some blood earlier today. She denies cough or fever but does have some discomfort in her chest. That has resolved also. Related Data Home Medications ?Medication ?Instructions ?Recorded ?Confirmed levothyroxine 100 mcg tablet 150 mcg PO DAILY 03/21/22 02/08/24 Previous Rx's ?Medication ?Instructions ?Recorded ketorolac 10 mg tablet 10 mg PO Q8H 5 days #15 tabs 02/08/24 Allergies Allergy/AdvReac Type Severity Reaction Status Date / Time amoxicillin Allergy Intermediate Verified 02/08/24 07:40 Review of Systems Narrative: Review of systems is outlined above otherwise noted to be negative. [facility] Medical History (normal spontaneous vaginal delivery) ?O80 - Encounter for full-term uncomplicated delivery (ICD-10) Graves' disease ?E05.00 - Thyrotoxicosis with diffuse goiter without thyrotoxic crisis or storm (ICD-10) Hypothyroidism (acquired) ?E03.9 - Hypothyroidism, unspecified (ICD-10) Major depressive disorder ?F32.9 - Major depressive disorder, single episode, unspecified (ICD-10) Vitamin D deficiency ?E55.9 - Vitamin D deficiency, unspecified (ICD-10) Pancytopenia ?D61.818 - Other pancytopenia (ICD-10) Hyperemesis gravidarum ?O21.0 - Mild hyperemesis gravidarum (ICD-10) Anemia affecting ?O99.019 - Anemia complicating , unspecified trimester (ICD-10) H. pylori infection ?A04.8 - Other specified bacterial intestinal infections (ICD-10) Surgical History No significant past surgical history Social History Smoking Status: Never smoker Do you use any of these nicotine containing products: None Second hand tobacco smoke exposure: No How often do you have a drink containing alcohol: never AUDIT-C Alcohol total score: 0 Non-prescribed substance use: denies use service: No Exam Narrative: Exam Narrative: Vitals noted. HEENT: Conjunctiva clear. Tympanic membranes are pearly white bilaterally. Posterior pharynx is clear without erythema or exudate. Neck is supple without adenopathy, thyromegaly, carotid bruit. Lungs: Clear to auscultation in all iniguez. No wheezes, rales, rhonchi. Heart: Regular rate and rhythm without murmur. Abdomen: Soft and nontender. No guarding, rigidity, rebound. Bowel sounds are normal. No palpable masses. Extremities: No cyanosis or edema. Good distal pulses. Skin: No abnormalities noted of the exposed skin. Neurologic: Awake, alert, fully oriented. Neurologic exam is nonfocal. Const: Vital Signs, click to edit/add: Vital Signs - 24 hr 01/29/24 22:52 Temperature 98.7 F Pulse Rate [Pulse Oximeter] 82 Respiratory Rate 26 H Blood Pressure [Ri ght Upper Arm] 128/85 Pulse Oximetry 100 Oxygen Delivery Me thod Room Air Course Course ED Course: Patient seen and examined. Chest x-ray is normal. Her symptoms had essentially resolved by the time I saw her. We discussed making a switch in her antibiotic as she believes that her symptoms are related to her antibiotic. Vital Signs Vital signs: Initial Vital Signs Temperature 98.7 F 01/29/24 22:52 Temperature Source Temporal Artery Scan 01/29/24 22:52 Pulse Rate 82 01/29/24 22:52 Respiratory Rate 26 H 01/29/24 22:52 Blood Pressure 128/85 01/29/24 22:52 Blood Pressure Mean 99 01/29/24 22:52 Blood Pressure Position Sitting 01/29/24 22:52 Pulse Oximetry 100 01/29/24 22:52 Oxygen Delivery Method Room Air 01/29/24 22:52 Vital Signs Temperature 98.7 F 01/29/24 22:52 Pulse Rate 82 01/29/24 22:52 Respiratory Rate 26 H 01/29/24 22:52 Blood Pressure 128/85 01/29/24 22:52 Pulse Oximetry 100 01/29/24 22:52 Oxygen Delivery Method Room Air 01/29/24 22:52 Temperature 98.7 F 01/30/24 00:01 Pulse Rate 67 01/30/24 01:00 Respiratory Rate 16 01/30/24 01:00 Blood Pressure 121/76 01/30/24 01:00 Pulse Oximetry 99 01/30/24 01:00 Oxygen Delivery Method Room Air 01/30/24 01:00 Medications Administered Medications: Discontinued Medications Generic Name Dose Route Start Last Admin Trade Name Anish PRN Reason Stop Dose Admin Lidocaine/Aluminum/Magnesium/Simeth 30 ml 01/30/24 00:54 01/30/24 01:04 Gi Cocktail (Visc Lido/Antacid) 30 Ml PO 01/30/24 00:55 30 ml ONCE ONE Administration Discharge Plan Discharge Clinical Impression: Dyspnea Patient Disposition: Home, Self-Care Condition: Stable Additional Instructions: Switch from Amoxicillin to Clindamycin, Continue pain meds. Follow up if not improving. Prescriptions: No Action ketorolac 10 mg tablet 10 mg PO Q8H 5 Days Qty: 15 0RF levothyroxine 100 mcg tablet 150 mcg PO DAILY Patient Comments: TAKE 1 TABLET BY MOUTH BEFORE BREAKFAST. Follow Up/Referrals: Nadine Higgins MD [Primary Care Provider] - Stand Alone Forms: [employer] Info Instructions
[2024-01-30 01:00] VITALS: BP 121/76; PULSE 67; RESP 16; O2SAT 99
[2024-01-30] MEDS: GI COCKTAIL (VISC LIDO/ANTACID) 30 ML PO (01:04)
== END 2024-01-30 01:14 | disposition home or self-care (01) ==
LOC: ED 01-30 00:22
PROVIDERS: Emergency Provider Family Medicine; PCP Family Medicine
DX: R06.00 Dyspnea, unspecified (principal)
CPT/HCPCS: 71046; 99282; 99283; A9270

== ENCOUNTER 2024-02-08 07:28 | Emergency (ER) | payer BC, SELFPAY ==
[2024-02-08 07:34] VITALS: BP 124/85; PULSE 70; RESP 16; TEMP 36.3; O2SAT 99; BMI 27.4
--- NOTE | 2024-02-08 07:58 | ED_ITS ---
HPI - Dental/Oral General Chief complaint: Dental/Oral/Mouth Injury/Pain Stated complaint: wisdom teeth pulled 01/28 ear pain Time Seen by Provider: 02/08/24 07:49 History of Present Illness HPI Narrative: This 33-year-old female comes in with dental pain after having her wisdom teeth removed a few days ago. She went back to the dentist 2 days ago because of worsening pain and was treated for a dry socket by some topical gel that was provided. The patient has been taking Tylenol but has been unable to sleep because of pain. She is not report any fevers. Related Data Home Medications ?Medication ?Instructions ?Recorded ?Confirmed levothyroxine 100 mcg tablet 150 mcg PO DAILY 03/21/22 02/08/24 Previous Rx's ?Medication ?Instructions ?Recorded ketorolac 10 mg tablet 10 mg PO Q8H 5 days #15 tabs 02/08/24 Allergies Allergy/AdvReac Type Severity Reaction Status Date / Time amoxicillin Allergy Intermediate Verified 02/08/24 07:40 Review of Systems Status of ROS: Reports: 10 or more systems reviewed and unremarkable except as noted in History and below Narrative: Constitutional: No fevers, no weight gain or loss. Eyes: No discharge. No vision changes. HENT: No congestion, no sore throat. Dental pain from wisdom teeth removal and associated bilateral ear pain. Cardiovascular: No chest pain, no palpitations. Respiratory: No shortness of breath, no wheezes, no cough. Gastrointestinal: No abdominal pain, no vomiting, no diarrhea. Genitourinary: No dysuria, no hematuria. Musculoskeletal: Normal range of motion. Skin: No rashes, no pruritis. Neurological: No dizziness, weakness, sensory change, speech change. Endo/Heme/Allergies: No bruising or bleeding. No polydipsia. Pysch: no suicidality, no anxiety, no insomnia. All other systems reviewed and are negative. [facility] Medical History (normal spontaneous vaginal delivery) ?O80 - Encounter for full-term uncomplicated delivery (ICD-10) Graves' disease ?E05.00 - Thyrotoxicosis with diffuse goiter without thyrotoxic crisis or storm (ICD-10) Hypothyroidism (acquired) ?E03.9 - Hypothyroidism, unspecified (ICD-10) Major depressive disorder ?F32.9 - Major depressive disorder, single episode, unspecified (ICD-10) Vitamin D deficiency ?E55.9 - Vitamin D deficiency, unspecified (ICD-10) Pancytopenia ?D61.818 - Other pancytopenia (ICD-10) Hyperemesis gravidarum ?O21.0 - Mild hyperemesis gravidarum (ICD-10) Anemia affecting ?O99.019 - Anemia complicating , unspecified trimester (ICD-10) H. pylori infection ?A04.8 - Other specified bacterial intestinal infections (ICD-10) Surgical History No significant past surgical history Social History Smoking Status: Never smoker Do you use any of these nicotine containing products: None Second hand tobacco smoke exposure: No How often do you have a drink containing alcohol: never AUDIT-C Alcohol total score: 0 Non-prescribed substance use: denies use service: No Exam Narrative: Exam Narrative: Constitutional: Well-developed, well-nourished, no acute distress. HEENT: Normocephalic, atraumatic. Oropharynx shows no sign of active bleeding or infection. Tympanic membranes appear normal bilaterally. Neck: Normal range of motion. Nontender. Supple. Heart: Intact distal pulses. Lungs: No chest discomfort. No wheezes, rhonchi, or rales. Abdomen: Nontender. Back: Normal range of motion. Extremities: Normal range of motion. No injury. Skin: Intact. No rash. Warm. No erythema or pallor. Neurologic: No altered sensation. No weakness. Alert and oriented. Psychiatric: No suicidality. No anxiety or depression. No insomnia. Nursing notes and vitals signs are reviewed. Const: Vital Signs, click to edit/add: Vital Signs - 24 hr 02/08/24 07:34 Temperature 97.3 F L Pulse Rate [Pulse Oximeter] 70 Respiratory Rate 16 Blood Pressure [Ri ght Upper Arm] 124/85 Pulse Oximetry 99 Oxygen Delivery Me thod Room Air Course Vital Signs Vital signs: Initial Vital Signs Temperature 97.3 F L 02/08/24 07:34 Temperature Source Temporal Artery Scan 02/08/24 07:34 Pulse Rate 70 02/08/24 07:34 Respiratory Rate 16 02/08/24 07:34 Blood Pressure 124/85 02/08/24 07:34 Blood Pressure Mean 98 02/08/24 07:34 Blood Pressure Position Sitting 02/08/24 07:34 Pulse Oximetry 99 02/08/24 07:34 Oxygen Delivery Method Room Air 02/08/24 07:34 Vital Signs Temperature 97.3 F L 02/08/24 07:34 Pulse Rate 70 02/08/24 07:34 Respiratory Rate 16 02/08/24 07:34 Blood Pressure 124/85 02/08/24 07:34 Pulse Oximetry 99 02/08/24 07:34 Oxygen Delivery Method Room Air 02/08/24 07:34 Temperature 97.3 F L 02/08/24 07:34 Pulse Rate 70 02/08/24 07:34 Respiratory Rate 16 02/08/24 07:34 Blood Pressure 124/85 02/08/24 07:34 Pulse Oximetry 99 02/08/24 07:34 Oxygen Delivery Method Room Air 02/08/24 07:34 MDM - Dental/Oral MDM Narrative Medical decision making narrative: This patient comes in with an adequately controlled dental pain after having wisdom teeth removed. She arrives with normal vital signs. She is complaining of ear pain however her exam of her ears appears normal. Her main reason for presentation is pain control. The patient did receive an intramuscular injection of Toradol 15 mg and prescription for oral tablets of Toradol. I did offer a dental nerve block which the patient declined. She understands that we do not work on teeth here and is encouraged therefore to follow up with her dentist for ongoing management. Discharge Plan Discharge Clinical Impression: Toothache Patient Disposition: Home, Self-Care Condition: Stable Additional Instructions: Take medication as prescribed. Follow-up with dentist if not improving or as needed. Prescriptions: New ketorolac 10 mg tablet 10 mg PO Q8H 5 Days Qty: 15 0RF No Action levothyroxine 100 mcg tablet 150 mcg PO DAILY Patient Comments: TAKE 1 TABLET BY MOUTH BEFORE BREAKFAST. Follow Up/Referrals: Nadine Higgins MD [Primary Care Provider] - Stand Alone Forms: [facility] Info Instructions
[2024-02-08] MEDS: KETOROLAC 30 MG/ML inj 15 MG IM (08:04)
--- OUTSIDE RECORDS SUMMARY | 2024-02-08 08:07 | XMS_ITS | Clinical Summary ---
Author Organization [employer] [facility] Address [place], [place] [address] Care Team Providers Care Manufacturing Lead Name Role Phone Martell Garcia MD Unavailable [phone] Nadine Higgins MD Primary Care Provider [phone] Nova Jones BARREL LATHE OPERATOR Unavailable Liv Soto MD Unavailable [phone] Allergies No known active allergies Medications Medication Sig Dispensed Refills Start Date End Date Status vit calc,iron,folic (PRENAT.VITS,MANUEL,MIN -IRON-FOLIC ORAL) 04/28/2022 Active hydrOXYzine HCL (ATARAX) 25 mg tabletIndications:Pa elizabeth attack Take 1-2 Tablets (25-50 mg) by mouth every 6 hours if needed for Anxiety (panic. May also use prn for sleep). 90 Tablet 11/07/2023 Active ondansetron (ZOFRAN ODT) 4 mg disintegrating tabletIndications:Mi graine syndrome,Nausea Place 1 Tablet (4 mg) on the tongue every 8 hours if needed for Nausea/Vomiti ng. 30 Tablet 01/14/2023 4 Discontinued (*Patient states no longer taking) fluticasone (50 mcg per actuation) nasal solution (FLONASE)Indications :Sinus congestion Inhale 2 Sprays to both nostrils once daily. 16 g 05/09/2023 4 Discontinued (*Patient states no longer taking) qrmjldk-verh-gtepa acid (PREPLUS;NATALCARE PLUS) 27 mg iron- 1 mg tabletIndications:Po stpartum anemia Take 1 Tablet by mouth once daily. 90 Tablet 05/14/2023 4 Discontinued (*Patient states no longer taking) ferrous sulfate 325 mg delayed release tabletIndications:Ir on deficiency anemia, unspecified iron deficiency anemia type Take 1 Tablet (325 mg) by mouth once every other day. 90 Tablet 3 06/10/2023 4 Discontinued (*Patient states no longer taking) SUMAtriptan (IMITREX) 25 mg tabletIndications:Mi graine syndrome Take 1 tab by mouth at onset of symptoms. Take another tablet if needed at minimum 2hrs apart. Max Dose: 200mg per 24hrs. 12 Tablet 3 11/07/2023 4 Discontinued (*Patient states no longer taking) lidocaine 5 % topical patchIndications:Chr onic bilateral low back pain with bilateral sciatica,Neck pain, chronic Apply on dry, clean, hairless skin. Apply 1 patch to painful area of skin for up to to 12 hours within 24 hour period. 30 Patch 11 11/07/2023 4 Discontinued (*Patient states no longer taking) cholecalciferol (VITAMIN D3) 50,000 unit capsuleIndications:L ow vitamin D level Take 1 Capsule (50,000 units) by mouth once weekly. 8 Capsule 11/11/2023 4 Discontinued (*Patient states no longer taking) omeprazole (PRILOSEC) 20 mg Delayed-Release capsuleIndications:H . pylori infection Take 1 Capsule (20 mg) by mouth once daily before a meal. Take 30 minutes prior to a meal 90 Capsule 3 11/19/2023 4 Discontinued (*Medication adjustment) cholecalciferol (Vitamin D-3) 2,000 unit capsuleIndications:L ow vitamin D level Take 1 Capsule (2,000 units) by mouth once daily. To be started after 8 weeks on the [address] weekly dosing. 90 Capsule 3 12/18/2023 4 Discontinued (*Patient states no longer taking) levothyroxine (SYNTHROID) 100 mcg tabletIndications:Hy pothyroidism (acquired) Take 1 Tablet (100 mcg) by mouth before breakfast. 90 Tablet 12/19/2023 4 Discontinued (*Patient states no longer taking) clarithromycin (BIAXIN) 500 mg tabletIndications:H. pylori infection Take 1 Tablet (500 mg) by mouth two times daily for 14 days. 28 Tablet 01/14/2024 4 amoxicillin (AMOXIL) 500 mg tabletIndications:H. pylori infection Take 2 Tablets (1,000 mg) by mouth two times daily for 14 days. 56 Tablet 01/14/2024 4 omeprazole 20 mg tabletIndications:H. pylori infection Take 1 Tablet (20 mg) by mouth two times daily for 14 days. 28 Tablet 01/14/2024 4 Active Problems Problem Noted Date Diagnosed Date [...] H GSIL 06/20/2021 Overview: 06/2021 ASC-H 07/2021 [place], negative 10/2022 NIL/ HPV negative Plan: pap/hpv [...] present) No problems associated with this episode. Jaent Desai RNC.....06/03/2018 12:35 PM Suicide attempt 05/19/2018 06/23/2018 Attempted suicide 05/18/2018 06/23/2018 History of hemorrhage 08/22/2015 06/23/2018 Overview: In first , required transfusion. Sounds like a very long induction Graves disease 08/19/2012 06/23/2018 Overview: S/P radioactive iodine 06/2012 Gall stones 03/06/2009 06/23/2018 Supervision of normal first 07/22/2008 2010 Overview: Evolving preeclampsia Encounters Date Type Department Care Team Description 01/30/2024 Orders Only [facility] Scanner 1 scan: (1-Ord) [facility], [place], 01/30/2024 01/30/2024 Hospital/[facility] Telephone Encounter [facility] [place] [address] [place] [address] Sarah Carroll, ALIYA Pre Procedure (PVP) 01/30/2024 Telephone [facility] [address] [facility] [place] [address] Nova Jones, BARREL LATHE OPERATOR Appointment 01/27/2024 3:45 PM CDT Office Visit [facility] [address] [place] [address] Nova Jones, BARREL LATHE OPERATOR Follow Up (Mild chronic anemia/) 01/27/2024 Travel 01/14/2024 Telephone [facility] [address] [place] [address] Nadine Higgins MD Results 01/08/2024 10:30 AM CDT - 01/08/2024 11:59 PM CDT Hospital Encounter [facility] [address] [place] [address] H. pylori infection 01/08/2024 8:00 AM CDT Ancillary Procedure [facility] [address] [place] [address] 01/08/2024 7:15 AM CDT Ancillary Procedure [facility] [address] [place] [address] 01/08/2024 Travel 01/05/2024 3:19 PM CDT - 01/05/2024 11:59 PM CDT Hospital Encounter [facility] [address] [place] [address] Mild chronic anemia; Leukopenia, unspecified type 01/05/2024 2:45 PM CDT Office Visit [facility] [address] [place] [address] Nova Jones, BARREL LATHE OPERATOR Consult ( Mild chronic anemia Leukopenia,) 01/05/2024 Travel 12/22/2023 Nurse Triage [facility] [address] [place] [address] Nadine Higgins MD Fatigue (Fatigue and body aches) 12/19/2023 Telephone [facility] [address] [place] [address] Nadine Higgins MD Results 12/18/2023 1:45 PM CDT Ancillary Procedure [facility] [address] [place] [address] 12/18/2023 1:30 PM CDT Ancillary Procedure [facility] [address] [place] [address] 12/18/2023 12:45 PM CDT Office Visit [facility] [address] [place] [address] Nadine Higgins MD Extremity Weakness (Right side only, 4 months) 12/18/[address] [address] Nadine Higgins MD Results 12/18/2023 Travel 12/17/[address] [address] Nadine Higgins MD FYI (Fax from Physical Therapy) 12/16/[address] [address] Nadine Higgins MD Follow Up (Physical therapy follow up ) 12/12/2023 3:20 PM CDT Office Visit [address] [address] Lidia Bernstein PA Concerns 12/12/2023 Travel 11/17/[address] [address] Nova Jones, KARINA Appointment 11/11/[address] [address] Nadine Higgins MD Prior Authorization (lidocaine 5 % topical patch (DENIED)) 11/11/[address] [address] Nadine Higgins MD Prior Authorization (omeprazole 20 mg tablet Denied) 11/11/[address] [address] Nadine Higgins MD Prior Authorization 11/11/[address] [place] [address] Nadine Higgins MD Results 11/10/2023 Telephone [facility] [address] [place] [address] Nadine Higgins MD Pharmacist Medication Management (tetracycline 500 mg capsule) 11/08/2023 Orders Only [facility] Scanner 1 scan: (1-Ord) INCOMING RECORDS-PATHOLOGY, [facility], 11/08/2023 11/08/2023 Orders Only [facility] Scanner 1 scan: (1-Ord) INCOMING RECORDS-ENDOSCOPY, [facility], 11/08/2023 from Last 3 Months Immunizations Name Administration [...] Livin g 8 9 [place] Delivery Location:[place] Comments: tr ansfusion, chorio 2012 IAB 2015 Term 40w 6d 3.37 kg (7 lb 7 oz) F Vag Livin g storl ie Complications:None 2021 IAB ELECTI VE AB 2022 Term 37w 6d 2.95 kg (6 lb 8 oz) F VAGINA L ALL Epidur al N Livin g 7 9 Ebony Perez sa, MD Complications: Hem orrhage,Preeclampsia Delivery Location:Hospital ( [facility]) Comments:induced for p reeclampsia with severe features [...] Description 02/18/2024 8:45 AM CDT Office Visit [facility] [address] [place] [address] Nadine Higgins MD [address] [place] [address] 03/19/2024 8:15 AM CDT Orders Only [facility] [address] [place] [address] [address] [place], [place] 03/23/2024 10:15 AM CDT Office Visit [facility] [place] [facility] [place] 200 [place] [phone] Nova Jones, BARREL LATHE OPERATOR 200 [place] [address] Health Maintenance Due Date Last Done Comments COVID-19 vaccine series (2022- season) 2023 Pap test for age 21-65 [...] Procedure Name Priority Date/Time Associated Diagnosis Comments SCAN-RADIOLOGY REPORT 01/30/2024 12:00 AM CDT H PYLORI ANTIGEN,STOOL Today 01/08/2024 9:40 AM CDT H. pylori infection MR [...] CDT Mild chronic anemia Leukopenia, unspecified type BILIRUBIN,TOTAL/DIREC T Today 01/05/2024 3:30 PM CDT Mild chronic [...] (acquired) XR SPINE LUMBAR 3 VIEWS Routine 12/18/2023 1:33 PM CDT Chronic bilateral low back pain with bilateral sciatica Numbness in both legs XR SPINE CERVICAL 3 VIEWS Routine 12/18/2023 1:32 PM CDT Cervical spine pain Right arm numbness Weakness of right arm SCAN CORRESP-LABORATORY RESULTS 11/08/2023 12:00 AM CDT SCAN CORRESP-DIAGNOSTICS 11/08/2023 12:00 AM CDT HPV THIN PREP Routine 10/22/2022 2:39 PM SANDING MACHINE BUFFER Screening for cervical cancer ANTI HCV Routine 02/20/2022 3:10 PM CDT Encounter for supervision of normal first in first trimester from Last 3 Months or Most Recently Relevant to Health Maintenance Results * SCAN-RADIOLOGY REPORT (01/30/2024 12:00 AM CDT) Anatomical Region Laterality Modality Other Scanner OTHER * (ABNORMAL) H PYLORI ANTIGEN,STOOL (01/08/2024 9:40 AM CDT) H PYLORI INTERPRETATION Positive( A) Negative 01/09/2024 2:49 PM CDT [facility]-CE NTRAL LABORATORY Comment:Indicates the presen ce of H Pylori stool antigen Stool STOOL SPECIMEN / Unknown Non-Blood / Unknown 01/08/2024 9:40 AM CDT 01/08/2024 10:44 AM CDT Narrative [facility] - 01/09/2024 2:49 PM CDT The Liaison?? [place] H Pylori SA assay has not been evaluated in a pediatric population. Nova Jones NP MICROBIOLOGY [facility] [address] [place] [address], * MR SPINE LUMBAR WO (01/08/2024 8:16 [...] MD @ 01/08/2024 9:50:10 AM (Electronically Signed) Naidne Higgins MD MR * (ABNORMAL) CBC WITH AUTO DIFFERENTIAL (01/05/2024 3:30 PM CDT) WHITE BLOOD COUNT 2.6(L) 4.5 - 11.0 thou/cu mm 01/05/2024 3:36 PM T [facility] RED BLOOD COUNT 3.27(L) 4.00 - 5.20 mil/cu mm 01/05/2024 3:36 PM [facility] HEMOGLOBIN 9.7(L) 12.0 - 16.0 g/dL 01/05/2024 3:36 PM [facility] HEMATOCRIT 30.6(L) 33.0 - 51.0 % 01/05/2024 3:36 PM [facility] MCV 94 80 - 100 fL 01/05/2024 3:36 PM [facility] MCH 29.7 26.0 - 34.0 pg 01/05/2024 3:36 PM [facility] MCHC 31.7(L) 32.0 - 36.0 g/dL 01/05/2024 3:36 PM [facility] RDW 12.7 11.5 - 15.5 % 01/05/2024 3:36 PM [facility] PLATELET COUNT 159 140 - 440 thou/cu mm 01/05/2024 3:36 PM [facility] MPV 9.3 6.5 - 11.0 fL 01/05/2024 3:36 PM [facility] % NEUT 43.8 % 01/05/2024 3:36 PM [facility] % LYMPH 41.4 % 01/05/2024 3:36 PM [facility] % MONO 13.3 % 01/05/2024 3:36 PM [facility] % EOS 1.5 % 01/05/2024 3:36 PM CDT [facility] % BASO 0.0 % 01/05/2024 3:36 PM CDT [facility] ABSOLUTE NEUTROPHILS 1.2(L) 1.7 - 7.0 thou/cu mm 01/05/2024 3:36 PM CDT [facility] ABSOLUTE LYMPHOCYTES 1.1 0.9 - 2.9 thou/cu mm 01/05/2024 3:36 PM CDT [facility] ABSOLUTE MONOCYTES 0.4 <0.9 thou/cu mm 01/05/2024 3:36 PM CDT [facility] ABSOLUTE EOSINOPHILS 0.0 <0.5 thou/cu mm 01/05/2024 3:36 PM CDT [facility] ABSOLUTE BASOPHILS 0.0 <0.3 thou/cu mm 01/05/2024 3:36 PM CDT [facility] Blood BLOOD SPECIMEN / Unknown Venipuncture / Unknown 01/05/2024 3:30 PM CDT 01/05/2024 3:31 PM CDT [facility] LABORATORY - 01/05/2024 3:36 PM CDT This procedure was originally ordered at [facility]. This procedure was originally ordered at [facility]. Nova Jones NP HEMATOLOGY [facility] [address] [place] [address] * (ABNORMAL) TSH (01/05/2024 3:30 PM CDT) TSH 160.00(H) 0.27 - 4.20 uIU/mL 01/05/2024 4:28 PM CDT [facility] Blood BLOOD SPECIMEN / Unknown Venipuncture / Unknown 01/05/2024 3:30 PM CDT 01/05/2024 3:31 PM CDT [facility] LABORATORY - 01/05/2024 4:28 PM CDT In Adults, TSH values between 5.00 and 10.00 uIU/ml do not necessarily indicate the presence of Hypothyroidism. Correlation with clinical findings such as presence of goiter and/or Thyroperoxidase (TPO) Antibody may be helpful. For more information please refer to CHRISTINA 2004; 291: 228-238. Nova Jones NP CHEMISTRY Performing Organization Address [facility] Co de Phone Number [facility] [address] [place] [address] * BILIRUBIN,TOTAL/DIRECT (01/05/2024 3:30 PM CDT) BILIRUBIN,TOTA L 0.3 0.0 - 1.2 mg/dL 01/05/2024 4:04 PM CDT [facility] BILIRUBIN,DIRE CT <0.2 0.0 - 0.3 mg/dL 01/05/2024 4:04 PM CDT [facility] BILIRUBIN,LIANG RECT 01/05/2024 4:04 PM CDT [facility] Comment:Unable to calculate, Direct Bili <0.2 Blood BLOOD SPECIMEN / Unknown Venipuncture / Unknown 01/05/2024 3:30 PM CDT 01/05/2024 3:31 PM CDT Nova Jones NP CHEMISTRY Performing Organization Address [facility] Co de Phone Number [facility] [address] [place] [address] * (ABNORMAL) IRON PLUS IRON BINDING CAP (01/05/2024 3:30 PM CDT) IRON 32(L) 37 - 145 ug/dL 01/06/2024 12:56 PM CDT [facility] UIBC (UNSATURATED) 255 112 - 347 ug/dL 01/06/2024 12:56 PM CDT [facility] IRON BINDING CAPACITY 287 250 - 400 ug/dL 01/06/2024 12:56 PM CDT [facility] IRON,% SATURATION 11(L) 14 - 50 % 01/06/2024 12:56 PM CDT [facility] Blood BLOOD SPECIMEN / Unknown Venipuncture / Unknown 01/05/2024 3:30 PM CDT 01/05/2024 3:31 PM CDT Nova Jones BARREL LATHE OPERATOR CHEMISTRY [facility] [address] [place] [address], [place] * (ABNORMAL) LD,TOTAL (01/05/2024 3:30 PM CDT) Pathologist [facility] LD,TOTAL 594(H) 135 - 214 IU/L 01/05/2024 4:49 PM CDT [facility] Blood BLOOD SPECIMEN / Unknown Venipuncture / Unknown 01/05/2024 3:30 PM CDT 01/05/2024 3:31 PM CDT Nova Salazary BARREL LATHE OPERATOR CHEMISTRY Performing Organization Address [facility] Co de Phone Number [facility] [address] [place] [address] * CREATININE (01/05/2024 3:30 PM CDT) [facility] eGFR >90 >90 mL/min/1.7 3m2 01/05/2024 4:04 PM CDT [facility] Comment:As of 2021, eG FR is calculated by the CKD-EPI creatinine equation without race adjustment. ??eGFR can be influenced by muscle mass, exercise, and diet. ??The reported eGFR is an estimation only and is only applicable if the renal function is stable. CREATININE 0.71 0.50 - 0.90 mg/dL 01/05/2024 4:04 PM CDT [facility] Blood BLOOD SPECIMEN / Unknown Venipuncture / Unknown 01/05/2024 3:30 PM CDT 01/05/2024 3:31 PM CDT Nova L Martiny BARREL LATHE OPERATOR CHEMISTRY Performing Organization Address City/[facility]/ZIP Co de Phone Number [facility] [address] [place] [address] * ANTI HBC (01/05/2024 3:30 PM CDT) Pathologist [facility] ANTI HBC Non-React el Non-React el 01/06/2024 2:26 PM CDT [facility] TRAL LABORATORY Comment:Anti-HBc Antibodies not detected. Does not exclude the possibility of exposure to or infection with HBV. Levels of Anti-HBc may be below the cut-off in early infection. Blood BLOOD SPECIMEN / Unknown Venipuncture / Unknown 01/05/2024 3:30 PM CDT 01/05/2024 3:31 PM CDT Nova Jones NP SEND OUTS Performing Organization Address City/[facility]/ZIP Co de Phone Number [facility] [address] [place] [address], * ANTI HIV 1/2 (01/05/2024 3:30 PM CDT) Pathologist [facility] HIV-1/HIV-2 SCREEN Non-Reacti ve Non-Reacti ve 01/06/2024 2:26 PM CDT [facility] TRAL LAB[facility]AT[facility] Comment:HIV-1 p24 and HIV-1/ HIV-2 Ab Not Detected. Blood BLOOD SPECIMEN / Unknown Venipuncture / Unknown 01/05/2024 3:30 PM CDT 01/05/2024 3:31 PM CDT Nova Jones NP SEND OUTS Performing Organization Address City/[facility]/ZIP Co de Phone Number [facility] [address] [place] [address], * RETICULOCYTES (01/05/2024 3:30 PM CDT) Pathologist [facility] RETIC% 0.8 0.5 - 1.5 % 01/06/2024 1:22 PM CDT [facility] RETIC (ABSOLUTE) 0.03 0.03 - 0.08 mil/cu mm 01/06/2024 1:22 PM CDT [facility] Blood BLOOD SPECIMEN / Unknown Venipuncture / Unknown 01/05/2024 3:30 PM CDT 01/05/2024 3:31 PM CDT Narrative [facility] - 01/06/2024 1:22 PM CDT This procedure was originally ordered at [facility]. Nova Jones NP HEMATOLOGY Performing Organization Address City/[facility]/ZIP Co de Phone Number [facility] [address] [place] [address], * (ABNORMAL) FERRITIN (01/05/2024 3:30 PM CDT) Pathologist [facility] FERRITIN 8.7(L) 15.0 - 150.0 ng/mL 01/06/2024 12:57 PM CDT [facility] Blood BLOOD SPECIMEN / Unknown Venipuncture / Unknown 01/05/2024 3:30 PM CDT 01/05/2024 3:31 PM CDT Nova Jones NP CHEMISTRY Performing Organization Address [facility] Co de Phone Number [facility] [address] [place] [address], * PERIPHERAL BLD MORPHOLOGY (01/05/2024 3:20 PM CDT) Pathologist [facility] Case Report Special Hematology Report ? Case: [id number] ? Authorizing Provider: ??Nova Jones, BARREL LATHE OPERATOR ? Collected: ? 01/05/2024 1520 ? Ordering Location: ? [facility] ? Received: ?01/05/2024 1530 ? [facility] ? Pathologist: ? Radhames Osman MD ? Specimen: ?Blood ? 01/07/2024 10:31 AM T [facility] LABORAT[facility]-C ENTRAL LABORATORY Final Diagnosis PERIPHERAL BLOOD: 1. Moderate normocytic anemia consistent with iron deficiency anemia 2. Leukopenia reflecting mild absolute neutropenia 3. See comment 01/07/2024 10:31 AM [facility]ORAT[facility]-C ENTRAL LABORATORY Comment The presence of [...] primary bone marrow disorder. 01/07/2024 10:31 AM CDT [facility]OR[facility]-C ENTRAL LABORATORY Clinical Information The patient is a 33-year-old female. Pertinent clinical information: Anemia and leukopenia with previously untreated H. pylori. Per EPIC: Additional history includes hypertension, hypothyroidism, mild protein calorie malnutrition, Graves' disease, and major depressive disorder. Peripheral blood morphology 2019 ([id number]) showed a moderate normocytic anemia. 01/05/24 15:30 FERRITIN: ?8.7 (L) IRON: ?32 (L) IRON BINDING CAPACITY ?: 287 IRON,% SATURATION ?: 11 (L) UIBC (UNSATURATED) ? : 255 LD,TOTAL: ?594 (H) 01/07/2024 10:31 AM CDT [facility] LABORATORY-C ENTRAL LABORATORY CBC and Differential HEMATOLOGY PARAMETERS Tested at: ??Central Laboratory ? RESULTS ??EXPECTED VALUES WBC: ? 2.6 ?4.5-41c6282/cu mm ?DECREASED RBC: ? 3.27 ?4.00-5.20 mil/cummDECREASE D HGB: ? 9.7 ?12-16 gm/dl ? DECREASED HCT: ? 30.6 ? 33-51% ?DECREASED MCV: ? 94.0 ? 80-100 fl ? NORMOCYTIC MCH: ? 29.7 ? 26-34 pg ? MCHC: ?31.7 ? 32-36 gm/dl ? HYPOCHROMIC RDW: ? 12.7 ? 11.5-15.5% ? PLT: ? 159 ?140-953h6421/u L ? MPV: ? 9.3 ?6.5-11 fl [...] (0-3%) ? (Metas, Myelos,Pros) 01/07/2024 10:31 AM [facility] ENTRAL LABORATORY Microscopic Description The final diagnosis is based on microscopic examination of appropriate sections of all specimens. 01/07/2024 10:31 AM [facility] ENTRAL LAB[facility]AT[facility] Additional Information Interpreted at [facility], Central Laboratory - [address] [address] 01/07/2024 10:31 AM [facility] ENTRAL LABORAT[facility] Blood BLOOD SPECIMEN / Unknown 01/05/2024 3:20 PM CDT 01/05/2024 3:30 PM CDT Comment:CURRENT MEDICATIONSC urrent Outpatient Medications: ? ? cholecalciferol (Vitamin D-3) 2,000 unit capsule, Take 1 Capsule (2,000 units) by mouth once daily. To be started after 8 [place] the [address] weekly dosing. (Patient not taking: Reported on [...] 30 Tablet, Rfl: 0? ? vit calc,iron,folic (PRENAT.VITS,MANUEL,NZC-OFLW-OXYOM ORAL), , Disp: , Rfl: ? ? yibauxt-ocny-imiax acid (PREPLUS;NATALCARE PLUS) 27 mg iron- 1 [...] Rfl: 3This procedure was originally ordered at [facility]. Nova Jones NP HEMATOLOGY Performing Organization Address [facility] de Phone Number [facility] [address] [place] [address], * (ABNORMAL) TSH WITH REFLEX (12/18/2023 1:39 PM CDT) TSH 148.00(H) 0.27 - 4.20 uIU/mL 12/18/2023 10:19 PM CDT [facility] Blood BLOOD SPECIMEN / Unknown Venipuncture / Unknown 12/18/2023 1:39 PM CDT 12/18/2023 1:41 PM CDT Narrative [facility] - 12/18/2023 10:19 PM CDT In Adults, TSH values between 5.00 and 10.00 uIU/ml do not necessarily indicate the presence of Hypothyroidism. Correlation with clinical findings such as presence of goiter and/or Thyroperoxidase (TPO) Antibody may be helpful. For more information please refer to CHRISTINA 2004; 291: 228-238. Nadine Higgins MD CHEMISTRY Performing Organization Address [facility] Co de Phone Number [facility] [address] [place] [address], * (ABNORMAL) T4,FREE (12/18/2023 1:39 PM CDT) T4,FREE 0.40(L) 0.93 - 1.70 ng/dL 12/18/2023 11:30 PM CDT [facility] Blood BLOOD SPECIMEN / Unknown Venipuncture / Unknown 12/18/2023 1:39 PM CDT 12/18/2023 1:41 PM CDT Nadine Higgins MD CHEMISTRY [facility] [address] [address], [place] * XR SPINE LUMBAR 3 VIEWS [...] (11/08/2023 12:00 AM CDT) Scanner OTHER * HPV HIGH RISK (10/22/2022 2:39 PM SANDING MACHINE BUFFER) TYPE 16 Negative Negative 10/24/2022 5:49 PM SANDING MACHINE BUFFER [facility] TR[facility] LABORATORY TYPE 18 Negative Negative 10/24/2022 5:49 PM SANDING MACHINE BUFFER [facility] TRAL LABORATORY OTHER HIGH RISK TYPES Negative Negative 10/24/2022 5:49 PM SANDING MACHINE BUFFER [facility] TR[facility] LAB[facility] Other (Cervical) Non-Blood / Unknown 10/22/2022 2:39 PM SANDING MACHINE BUFFER 10/23/2022 2:00 PM SANDING MACHINE BUFFER Narrative [facility] [facility] - 10/24/2022 5:49 PM SANDING MACHINE BUFFER HPV types 16, 18, 31, 33, 35, 39, 45, 51, 52, 56, 58, 59, 66 and 68 DNA were undetectable or below the pre-set threshold. Methodology: Aldo Nadeen 4800 HPV Test Nadine Higgins MD [facility] [address] [place] [address], * ANTI HCV (02/20/2022 3:10 PM CDT) Pathologist [facility] HEPATITIS C ANTIBODY Non-React el Non-React el 02/21/2022 10:05 AM CDT [facility] Comment:Antibodies to HCV no t detected; does not exclude the possibility of exposure to HCV. Blood BLOOD SPECIMEN / Unknown IV Start / Unknown 02/20/2022 3:10 PM CDT 02/20/2022 3:18 PM CDT Anastasiia Dea Hemalatha DO SEND OUTS [facility] [address] [place] [address], from Last 3 Months or Most Recently Relevant to Health Maintenance Advance Directives * Full Code (Latest Code Status on File) Date Activated Date Inactivated Comments 06/23/2018 10:42 PM 06/26/2018 1:11 PM * Full Code Date Activated Date Inactivated Comments 05/18/2018 10:59 PM 05/22/2018 4:39 PM Care Teams Manufacturing Lead Relationship Specialty Start Date End Date Nadine Higgins MD [address] [place] [id number] PCP - General Family Practice 07/03/22 Martell Garcia MD Endocrinology Endocrinology 08/20/12 Nova Jones, [employer] OPER[employer] [address] [place] [address] Nurse Practitioner Hematology 01/14/24 Liv Soto MD [address] [place] [address] Medical Oncologist Hematology 01/14/24
== END 2024-02-08 08:16 | disposition home or self-care (01) ==
LOC: ED 08:05
PROVIDERS: Emergency Provider Emergency Medicine Emergency Medical Services; PCP Family Medicine
DX: K08.89 Other specified disorders of teeth and supporting structures (principal)
CPT/HCPCS: 96372; 99283; 99284; J1885

== ENCOUNTER 2024-08-11 05:52 | Emergency (ER) | payer BC, SELFPAY ==
[2024-08-11 05:59] VITALS: BP 110/72; PULSE 68; RESP 18; TEMP 36.7; O2SAT 99; BMI 27.4
--- NOTE | 2024-08-11 06:11 | ED_ITS ---
HPI - General Adult General Chief complaint: Abdominal Pain Stated complaint: Abdominal pain Time Seen by Provider: 08/11/24 06:10 History of Present Illness HPI narrative: CC: Lower Abdominal Pain pt. with pain that woke her up around 0530. pain wraps to the back. last bm 08/10-- normal. does have some frequency with urination. denies n/v, diarrhea, fevers 33-year-old woman presenting to the emergency department with complaint of pain waking her from sleep about 30 minutes prior to presentation. Normal bowel movement. Not clearly with dysuria but has had frequency with urination. No fever. More left-sided pain. Requesting immediate relief of her pain. No apparent history of kidney stones. Further inquiry later reveals that is currently menstruating. Related Data Home Medications ?Medication ?Instructions ?Recorded ?Confirmed levothyroxine 112 mcg tablet 112 mcg PO DAILY 08/11/24 08/11/24 Previous Rx's ?Medication ?Instructions ?Recorded cephalexin 500 mg capsule 500 mg PO TID 7 days #21 caps 08/11/24 Allergies Allergy/AdvReac Type Severity Reaction Status Date / Time amoxicillin Allergy Intermediate Verified 08/11/24 06:06 Review of Systems Status of ROS: Reports: 6 or more systems reviewed and unremarkable except as noted in History and below [facility] Medical History Iron deficiency anemia ?D50.9 - Iron deficiency anemia, unspecified (ICD-10) Depression ?F32.A - Depression, unspecified (ICD-10) (normal spontaneous vaginal delivery) ?O80 - Encounter for full-term uncomplicated delivery (ICD-10) Graves' disease ?E05.00 - Thyrotoxicosis with diffuse goiter without thyrotoxic crisis or storm (ICD-10) Hypothyroidism (acquired) ?E03.9 - Hypothyroidism, unspecified (ICD-10) Major depressive disorder ?F32.9 - Major depressive disorder, single episode, unspecified (ICD-10) Vitamin D deficiency ?E55.9 - Vitamin D deficiency, unspecified (ICD-10) Pancytopenia ?D61.818 - Other pancytopenia (ICD-10) Hyperemesis gravidarum ?O21.0 - Mild hyperemesis gravidarum (ICD-10) Anemia affecting ?O99.019 - Anemia complicating , unspecified trimester (ICD-10) H. pylori infection ?A04.8 - Other specified bacterial intestinal infections (ICD-10) Surgical History History of esophagogastroduodenoscopy (EGD) ?Z98.890 - Other specified postprocedural states (ICD-10) History of dilation and curettage ?Z98.890 - Other specified postprocedural states (ICD-10) History of colposcopy ?Z98.890 - Other specified postprocedural states (ICD-10) History of cholecystectomy ?Z90.49 - Acquired absence of other specified parts of digestive tract (ICD- 10) Social History Smoking Status: Never smoker Do you use any of these nicotine containing products: None Second hand tobacco smoke exposure: No How often do you have a drink containing alcohol: never AUDIT-C Alcohol total score: 0 Non-prescribed substance use: denies use service: No Exam Narrative: Exam Narrative: Pleasant. Appears little disheveled. Moaning at times. Skin is warm and dry. Neck tattoos visible. Oropharynx is moist. Prefers to keep her eyes closed in apparent discomfort. Rolling somewhat to her left side. Breathing easily. Lungs appear to be clear. Heart in regular rate and rhythm. Abdomen is soft with pain reproducible primarily in the left flank and upper left abdomen. Some soreness I would say on the right flank as well. Const: Vital Signs, click to edit/add: Vital Signs - 24 hr 08/11/24 05:59 08/11/24 06:21 08/11/24 06:29 Temperature 98.0 F 98.0 F Pulse Rate [Right Pulse Oximeter] 68 Respiratory Rate 18 Blood Pressure [Ri ght Upper Arm] 110/72 Pulse Oximetry 99 99 Oxygen Delivery Me thod Room Air Documenting provider has reviewed patient's vital signs: yes Course Vital Signs Vital signs: Initial Vital Signs Temperature 98.0 F 08/11/24 05:59 Temperature Source Temporal Artery Scan 08/11/24 05:59 Pulse Rate 68 08/11/24 05:59 Respiratory Rate 18 08/11/24 05:59 Blood Pressure 110/72 08/11/24 05:59 Blood Pressure Mean 84 08/11/24 05:59 Blood Pressure Position Sitting 08/11/24 05:59 Pulse Oximetry 99 08/11/24 05:59 Oxygen Delivery Method Room Air 08/11/24 05:59 Vital Signs Temperature 98.0 F 08/11/24 05:59 Pulse Rate 68 08/11/24 05:59 Respiratory Rate 18 08/11/24 05:59 Blood Pressure 110/72 08/11/24 05:59 Pulse Oximetry 99 08/11/24 05:59 Oxygen Delivery Method Room Air 08/11/24 05:59 Temperature 98.0 F 08/11/24 06:29 Pulse Rate 68 08/11/24 05:59 Respiratory Rate 18 08/11/24 05:59 Blood Pressure 110/72 08/11/24 05:59 Pulse Oximetry 99 08/11/24 06:21 Oxygen Delivery Method Room Air 08/11/24 05:59 Medications Administered Medications: Discontinued Medications Generic Name Dose Route Start Last Admin Trade Name Freq PRN Reason Stop Dose Admin Hydrocodone Bitart/Acetaminophen 1 - 2 tab 08/11/24 07:38 08/11/24 08:28 Hydrocodone-Acetamin 5-325 Mg 1 Tab PO 1 tab Q4H PRN Administration Sodium Chloride 500 mls @ 1,000 mls/hr 08/11/24 06:53 08/11/24 07:46 0.9 % Sodium Chloride 500 Ml IV 08/11/24 07:22 Infused .Q30M ONE Infusion Sodium Chloride 500 mls @ 1,000 mls/hr 08/11/24 06:57 08/11/24 07:46 0.9 % Sodium Chloride 500 Ml IV 08/11/24 07:26 Not Given .Q30M ONE Ceftriaxone Sodium 1 gm/ 100 mls @ 200 mls/hr 08/11/24 07:19 08/11/24 08:35 Sodium Chloride IVPB 08/11/24 07:20 Infused ONCE ONE Infusion Ketorolac Tromethamine 30 mg 08/11/24 06:18 08/11/24 06:29 Ketorolac 30 Mg/Ml Inj IVP 08/11/24 06:19 30 mg ONCE ONE Administration Lorazepam 0.5 mg 08/11/24 06:53 08/11/24 06:55 Lorazepam 2 Mg/Ml Inj IVP 08/11/24 06:54 0.5 mg ONCE ONE Administration Morphine Sulfate 4 mg 08/11/24 06:18 08/11/24 06:29 Morphine 4 Mg/Ml Inj IVP 08/11/24 06:19 4 mg ONCE ONE Administration Medical Decision Making MDM Narrative Medical decision making narrative: Appears will need some IV management for her pain. Will need to collect urinalysis. Differential includes urinary tract infection, ureteral stone and colic, low-lying pneumonia does not have respiratory symptoms. IVs initiated. Ordered for morphine ketorolac normal saline. Appeared improved and then noted some increased chest tightness and then tingling into both shoulders. Began to breathe heavily and cry out. Appear to be a having a panic attack and was settled with half a mg of lorazepam. It apparently with these sorts of symptoms in past would take Vistaril. I suspect had some discomfort related to morphine triggering panic. Labs with findings of apparent infection in the urine possibly complicated by current menses. Will be cultured. White count is reassuring. Hemoglobin not inconsistent from prior at 10.8. I do think symptoms are more consistent with urinary tract infection possibly amplified by menses than they are ureteral stone related. Initiated on IV dose of Rocephin. Considering allergies will be continued on cephalexin 7 day course sent to pharmacy. Final reassessment is overall improved. Vitals are stable. See patient discharge plan for further discussion Stay well hydrated with water. A urine culture will be pending here. We will call you if need to change recommendations for treatment. Giving you 4 tabs of [place] for more intense pain that you were noting on arrival. We seen for marked increase in persistent pain, repeated vomiting, associated fever. Medical Records Medical records reviewed: Yes I reviewed the patient's medical records Lab Data Lab results reviewed: Yes I reviewed the patient's lab results Labs: Lab Results 08/11/24 08/11/24 Range/Units 06:03 06:30 WBC 3.74 L (4.50-11.00) K/uL RBC 3.50 L (4.00-5.20) m/uL Hgb 10.8 L (12.0-16.0) gm/dL Hct 32.4 L (33.0-51.0) % MCV 93 (80-100) fL MCH 31 (26-34) pg MCHC 33 (32-36) gm/dL RDW Coeff of [place] 13.1 (11.5-15.5) % Plt Count 163 (140-440) K/uL Neut % (Auto) 49.5 (42.0-72.0) % Lymph % (Auto) 38.2 (20-44) % [place] % (Auto) 10.4 (0.0-11.0) % Eos % (Auto) 1.1 (0.0-7.0) % Baso % (Auto) 0.3 (0.0-3.0) % Neut # (Auto) 1.90 (1.7-7.0) K/uL Lymph # (Auto) 1.40 (0.90-2.90) K/uL [place] # (Auto) 0.40 (0.00-0.90) K/UL Eos # (Auto) 0.00 (0.00-0.50) K/uL Baso # (Auto) 0.00 (0.00-0.30) K/uL Abs Immat Gran (auto) 0.00 (0.00-0.30) K/uL Imm/Tot Granulo (auto) 0.5 % Sodium 137 (135-149) mmol/L Potassium 3.6 (3.6-5.1) mmol/L Chloride 107 (96-114) mmol/L Carbon Dioxide 23 (20-32) mmol/L Anion Gap 7 (7-15) mEq/L BUN 13 (5-24) mg/dL Creatinine 0.6 (0.5-1.5) mg/dL Estimated Creat Clear 106.46 Estimated GFR 122 ml/min Glucose 100 (60-115) mg/dL Calcium 9.0 (8.4-10.6) mg/dL C-Reactive Protein < 0.5 L (0.5-1.0) mg/dL Urine Color Red A (Yellow) Urine Appearance Clear (Clear) Urine pH 6.0 (5.0-8.5) Ur Specific [place] >= 1.030 (1.000-1.030) Urine Protein 2+ A (Negative) Urine Glucose (UA) Negative (Negative) Urine Ketones Negative (Negative) Urine Blood 3+ A (Negative) Urine Nitrite Negative (Negative) Urine Bilirubin Negative (Negative) Urine Urobilinogen 0.2 (0.2-1.0) Ur Leukocyte Esterase 1+ A (Negative) Urine RBC 50-100 A (0-2) Urine WBC 10-25 A (0-5) Ur Squamous Epith Cells Moderate A (None-Few) Urine Bacteria Few A (None) Hyaline Casts Few (None-Few) Discharge Plan Discharge Clinical Impression: Urinary tract infection, Panic attack Patient Disposition: Home w/ Parent or Adult Condition: Improved Additional Instructions: Stay well hydrated with water. A urine culture will be pending here. We will call you if need to change recommendations for treatment. Giving you 4 tabs of [place] for more intense pain that you were noting on arrival. We seen for marked increase in persistent pain, repeated vomiting, associated fever. Prescriptions: New cephalexin 500 mg capsule 500 mg PO TID 7 Days Qty: 21 0RF No Action levothyroxine 112 mcg tablet 112 mcg PO DAILY Follow Up/Referrals: Nadine Higgins MD [Primary Care Provider] - Stand Alone Forms: [employer] Info Instructions
[2024-08-11 06:12] LABS: Appearance Urine Clear (Clear); Bilirubin Urine Negative (Negative); Blood Urine 3+ (Negative); Glucose Urine Negative (Negative); Ketones Urine Negative (Negative); Leukocyte Esterase Urine 1+ (Negative); Nitrite Urine Negative (Negative); Protein Urine 2+ (Negative); Specific Gravity Urine >= 1.030 (1.000-1.030); Urobilinogen Urine 0.2 (0.2-1.0)
[2024-08-11 06:13] LABS: Color Urine Red (Yellow)
[2024-08-11 06:19] LABS: RBC Urine 50-100 (0-2); Squamous Epithelial Cell Urine Moderate (None-Few)
[2024-08-11 06:20] LABS: Bacteria Urine Few; Hyaline Casts Urine Few (None-Few)
[2024-08-11 06:21] VITALS: O2SAT 99
[2024-08-11 06:29] VITALS: TEMP 36.7
[2024-08-11] MEDS: MORPHINE 4 MG/ML INJ IVP (06:29)
[2024-08-11] MEDS: KETOROLAC 30 MG/ML inj IVP (06:29)
[2024-08-11 06:40] LABS: Basophils Percent Auto 0.3 % (0.0-3.0); Eosinophils Percent Auto 1.1 % (0.0-7.0); Hematocrit 32.4 % (33.0-51.0); Hemoglobin* 10.8 gm/dL (12.0-16.0); Immature Granulocytes Pct Auto 0.5 %; Lymphocytes Percent Auto 38.2 % (20-44); Mean Corpuscular HGB Conc 33 gm/dL (32-36); Mean Corpuscular Hemoglobin 31 pg (26-34); Mean Corpuscular Volume 93 fL (80-100); Monocytes Percent Auto 10.4 % (0.0-11.0); Neutrophils Percent Auto 49.5 % (42.0-72.0); Platelet Count* 163 K/uL (140-440); RDW Coefficient of Variation % 13.1 % (11.5-15.5); White Blood Count* 3.74 K/uL (4.50-11.00)
[2024-08-11 06:50] LABS: Slide Review Reflex No
[2024-08-11] MEDS: LORazepam 2 MG/ML inj 0.5 MG IVP (06:55)
[2024-08-11 06:56] LABS: Chloride* 107 mmol/L (96-114); Potassium* 3.6 mmol/L (3.6-5.1); Sodium* 137 mmol/L (135-149)
[2024-08-11 06:59] LABS: Anion Gap 7 mEq/L (7-15); Blood Urea Nitrogen* 13 mg/dL (5-24); Carbon Dioxide* 23 mmol/L (20-32); Creatinine* 0.6 mg/dL (0.5-1.5); Est. Creatinine Clearance* 106.46; Estimated Glomerular Filt Rate 122 ml/min; Glucose* 100 mg/dL (60-115)
[2024-08-11] MEDS: 0.9 % SODIUM CHLORIDE 500 ML 500 ML 1000 ML IV (07:18)
[2024-08-11] MEDS: cefTRIAXone 1 GM in 0.9 % SODIUM CHLORIDE Mini-bag 100 ML IVPB (07:28)
[2024-08-11 08:10] LABS: C Reactive Protein* < 0.5 mg/dL (0.5-1.0)
[2024-08-11] MEDS: HYDROCODONE-ACETAMIN 5-325 MG 1 TAB PO (08:28)
== END 2024-08-11 08:37 | disposition home or self-care (01) ==
PROVIDERS: Emergency Provider Family Medicine; PCP Family Medicine
DX: N39.0 Urinary tract infection, site not specified (principal); F41.0 Panic disorder [episodic paroxysmal anxiety]
CPT/HCPCS: 36415; 80048; 81001; 85025; 86140; 87086; 87186; 94761; 96365; 96375; 99284; A9270; J0696; J1885; J2060; J2270; J7030

== ENCOUNTER 2024-09-15 13:03 | Emergency (ER) | payer BC, SELFPAY ==
[2024-09-15 13:13] VITALS: BP 104/78; PULSE 79; RESP 16; TEMP 37.2; O2SAT 99; BMI 27.5
--- NOTE | 2024-09-15 13:54 | ED.GENADULT ---
HPI - General Adult General Chief complaint: Cough Stated complaint: flu like symptoms Time Seen by Provider: 09/15/24 13:28 History of Present Illness HPI narrative: This 33-year-old female comes in with symptoms from influenza a. She was diagnosed 3 days ago and has been taking Tamiflu. She comes in with her daughter who also has similar symptoms. She states that she is not feeling much better. She does arrive with normal vital signs. Related Data Home Medications ?Medication ?Instructions ?Recorded ?Confirmed levothyroxine 112 mcg tablet 112 mcg PO DAILY 08/11/24 09/15/24 Previous Rx's ?Medication ?Instructions ?Recorded oseltamivir 75 mg capsule 75 mg PO BID 5 days #10 caps 09/12/24 Allergies Allergy/AdvReac Type Severity Reaction Status Date / Time amoxicillin Allergy Intermediate Verified 09/15/24 13:13 Review of Systems Status of ROS: Reports: 10 or more systems reviewed and unremarkable except as noted in History and below Narrative: Constitutional: No fevers, no weight gain or loss. Eyes: No discharge. No vision changes. HENT: No sore throat, no ear pain. Nasal congestion. Cardiovascular: No chest pain, no palpitations. Respiratory: No shortness of breath, no wheezes. Occasional cough. Gastrointestinal: No abdominal pain, no vomiting, no diarrhea. Genitourinary: No dysuria, no hematuria. Musculoskeletal: Normal range of motion. Skin: No rashes, no pruritis. Neurological: No dizziness, weakness, sensory change, speech change. Endo/Heme/Allergies: No bruising or bleeding. No polydipsia. Pysch: no suicidality, no anxiety, no insomnia. All other systems reviewed and are negative. [facility] Medical History Iron deficiency anemia ?D50.9 - Iron deficiency anemia, unspecified (ICD-10) Depression ?F32.A - Depression, unspecified (ICD-10) (normal spontaneous vaginal delivery) ?O80 - Encounter for full-term uncomplicated delivery (ICD-10) Graves' disease ?E05.00 - Thyrotoxicosis with diffuse goiter without thyrotoxic crisis or storm (ICD-10) Hypothyroidism (acquired) ?E03.9 - Hypothyroidism, unspecified (ICD-10) Major depressive disorder ?F32.9 - Major depressive disorder, single episode, unspecified (ICD-10) Vitamin D deficiency ?E55.9 - Vitamin D deficiency, unspecified (ICD-10) Pancytopenia ?D61.818 - Other pancytopenia (ICD-10) Hyperemesis gravidarum ?O21.0 - Mild hyperemesis gravidarum (ICD-10) Anemia affecting ?O99.019 - Anemia complicating , unspecified trimester (ICD-10) H. pylori infection ?A04.8 - Other specified bacterial intestinal infections (ICD-10) Surgical History History of esophagogastroduodenoscopy (EGD) ?Z98.890 - Other specified postprocedural states (ICD-10) History of dilation and curettage ?Z98.890 - Other specified postprocedural states (ICD-10) History of colposcopy ?Z98.890 - Other specified postprocedural states (ICD-10) History of cholecystectomy ?Z90.49 - Acquired absence of other specified parts of digestive tract (ICD-10) Social History Smoking Status: Never smoker Do you use any of these nicotine containing products: None Second hand tobacco smoke exposure: No How often do you have a drink containing alcohol: never AUDIT-C Alcohol total score: 0 Non-prescribed substance use: denies use service: No Exam Narrative: Exam Narrative: Constitutional: Well-developed, well-nourished, no acute distress. HEENT: Normocephalic, atraumatic. Neck: Normal range of motion. Nontender. Supple. Heart: Regular. No murmurs. Normal rate. Intact distal pulses. Lungs: Clear to auscultation. No chest discomfort. No wheezes, rhonchi, or rales. Abdomen: Normal bowel sounds. Nontender. No rebound tenderness. Genitalia: Deferred. Back: No midline tenderness. Normal range of motion. Extremities: Normal range of motion. No injury. Skin: Intact. No rash. Warm. No erythema or pallor. Neurologic: No altered sensation. No weakness. Alert and oriented. Psychiatric: No suicidality. No anxiety or depression. No insomnia. Nursing notes and vitals signs are reviewed. Const: Vital Signs, click to edit/add: Vital Signs - 24 hr 09/15/24 13:13 Temperature 98.9 F Pulse Rate [Pulse Oximeter] 79 Respiratory Rate 16 Blood Pressure [Ri ght Upper Arm] 104/78 Pulse Oximetry 99 Oxygen Delivery Me thod Room Air Course Vital Signs Vital signs: Initial Vital Signs Temperature 98.9 F 09/15/24 13:13 Temperature Source Temporal Artery Scan 09/15/24 13:13 Pulse Rate 79 09/15/24 13:13 Respiratory Rate 16 09/15/24 13:13 Blood Pressure 104/78 09/15/24 13:13 Blood Pressure Mean 86 09/15/24 13:13 Blood Pressure Position Sitting 09/15/24 13:13 Pulse Oximetry 99 09/15/24 13:13 Oxygen Delivery Method Room Air 09/15/24 13:13 Vital Signs Temperature 98.9 F 09/15/24 13:13 Pulse Rate 79 09/15/24 13:13 Respiratory Rate 16 09/15/24 13:13 Blood Pressure 104/78 09/15/24 13:13 Pulse Oximetry 99 09/15/24 13:13 Oxygen Delivery Method Room Air 09/15/24 13:13 Temperature 98.9 F 09/15/24 13:13 Pulse Rate 79 09/15/24 13:13 Respiratory Rate 16 09/15/24 13:13 Blood Pressure 104/78 09/15/24 13:13 Pulse Oximetry 99 09/15/24 13:13 Oxygen Delivery Method Room Air 09/15/24 13:13 Medical Decision Making MDM Narrative Medical decision making narrative: This patient comes in with her daughter. She states that she is not feeling better after taking Tamiflu for influenza A. She arrives with normal vital signs. I recommended using [id number] medicines as needed and directed. The patient did receive a 1 time oral dose of dexamethasone 10 mg. Discharge Plan Discharge Clinical Impression: Influenza A Patient Disposition: Home, Self-Care Condition: Stable Additional Instructions: Use [id number] medicines as needed and directed. Follow up with MD return if worsening. Prescriptions: No Action oseltamivir 75 mg capsule 75 mg PO BID 5 Days Qty: 10 0RF levothyroxine 112 mcg tablet 112 mcg PO DAILY Follow Up/Referrals: Nadine Higgins MD [Primary Care Provider] - Stand Alone Forms: [employer] Info Instructions
[2024-09-15] MEDS: dexAMETHasone 10 MG/ML inj PO (14:07)
--- OUTSIDE RECORDS SUMMARY | 2024-09-15 15:57 | XMS_ITS | Clinical Summary ---
Author Organization [employer] [facility] Address [place], [place] [address] Care Team Providers Care Raise Miner Name Role Phone Martell Garcia MD Unavailable [phone] Nadine Higgins MD Primary Care Provider [phone] Nova Jones INSTRUCTOR [employer] Unavailable Liv Soto MD Unavailable [phone] Allergies Active Allergy Reactions Criticality Noted Date Comments Amoxicillin Chest Pain High 02/08/2024 Medications hydrOXYzine HCL (ATARAX) 25 mg tabletIndicatio ns:Panic attack Take 1-2 Tablets (25-50 mg) by mouth every 6 hours if needed for Anxiety (panic. May also use prn for sleep). 90 Tablet 11/07/2023 Active omeprazole (PRILOSEC) 20 mg Delayed-Release capsuleIndicati ons:H. pylori infection Take 1 Capsule (20 mg) by mouth two times daily before meals. 60 Capsule 04/02/2024 Active cholecalciferol , Vitamin D3, (Vitamin D-3) 5,000 unit tab tabletIndicatio ns:Vitamin D deficiency Take 1 Tablet (5,000 units) by mouth once daily. 90 Tablet 04/22/2024 Active levothyroxine (SYNTHROID) 112 mcg tabletIndicatio ns:Hypothyroidi sm (acquired) Take 1 Tablet (112 mcg) by mouth once daily. 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 Date Abnormal Pap smear of cervix Anemia Attempted suicide (HC) 05/18/2018 Depression Gall stones 03/06/2009 Graves disease 08/19/2012 S/P radioactive iodine 06/2012 H. pylori infection 08/01/2021 Colonoscopy 07/2021 h pylori History of hemorrhage 08/22/2015 In first , required transfusion. 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 Laterality Date CHOLECYSTECTOMY 03/2009 COLPOSCOPY 08/03/2021 benign DILATION AND CURETTAGE secondary to hemorrhage, transfusion ESOPHAGOGASTRODUODENOSCOPY 07/2021 EDG 07/2021 h pylori No data on file. Problems (from 08/29/21 to present) No problems associated with this episode. Janet Farmer RN.....09/03/2021 12:46 PM H. pylori infection 08/01/2021 Overview (08/01/2021): EGD 07/2021 h pylori+ Pap smear of cervix with ASCUS, cannot exclude H GSIL 06/20/2021 Overview (11/14/2022): 06/2021 ASC-H 07/2021 Mineral, negative 10/2022 NIL/ HPV negative Plan: pap/hpv due 10/2023 Anemia in 11/03/2018 Supervision of high risk in third trim yasir 10/12/2018 Hyperemesis gravidarum 06/26/2018 Hypotension 06/24/2018 Metabolic acidosis, normal anion gap (NAG) 06/24 Pancytopenia 06/23/2018 Abdominal pain 06/23/2018 Nausea & vomiting 06/23/2018 Abnormal weight gain during 06/23/2018 Overview (06/23/2018): Has actually lost 7-9 kg during beginning of . Vitamin D deficiency 06/23/2018 Mild protein-calorie malnutrition 06/23/2018 Hypokalemia 06/23/2018 Cervical motion tenderness 06/23/2018 Overview (06/23/2018): Mild. CG/chlamydia checked 06/23/2018 Major depressive disorder 05/19/2018 Overview (06/23/2018): Suicide attempt by hanging in 05/2018. Brought on by stress of marriage dissolution and recent finding of . Patient has been recommended to take antidepressants in the past (2016) but declined. Currently declines medication due to . 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 3rd Problems (from 04/27/18 to present) No problems associated with this episode. DIAN Alberto.....06/03/2018 12:35 PM Suicide attempt 05/19/2018 06/23/2018 Attempted suicide 05/18/2018 06/23/2018 History of hemorrhage 08/22/2015 06/23/2018 Overview (08/22/2015): In first , required transfusion. Sounds like a very long induction Graves disease 08/19/2012 06/23/2018 Overview (01/28/2013): S/P radioactive iodine 06/2012 Gall stones 03/06/2009 06/23/2018 Supervision of normal first 07/22/2008 2010 Overview (02/26/2013): Evolving preeclampsia Immunizations Name Administration Dates Next Due Human [...] Alcohol Use Standard Drinks/Week Comments Not Currently 0 (1 standard drink = 0.6 oz pur e alcohol) PHQ-2 Answer Date Recorded PHQ-2 TOTAL SCORE 0 05/09/2023 Social Connections Answer Date Recorded Frequency of Communication with Friends and Fami ly Not on file 04/13/2024 Financial Resource Strain Answer Date R ecorded [...] Housing in the Last Year 1 04/10/2023 Comments No Sex and Gender Information Value Date Recorded Sex Assigned at Not on file Legal Sex 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 No elevated BP. On Magnesium. Had hemorrhage with 300 QBL. Received 1 unit PRBCs Last Filed Vital Signs Vital Sign Reading Time Taken Comments Blood Pressure 106/67 03/23/2024 10:02 AM CDT Pulse 66 03/23/2024 10:02 AM CDT Temperature 36.8 C (98.3 F) 03/23/2024 10:02 AM CDT Respiratory Rate 14 03/23/2024 10:0 2 AM CDT Oxygen Saturation 100% 03/23/2024 10: 02 AM CDT Inhaled Oxygen Concentration - - Weight 69.8 kg (153 lb 12.8 oz) 024 10:02 AM CDT Height 158.8 cm (5' 2.5) 11/07/2023 1:25 PM CDT Body Mass Index 27.68 11/07/2023 1:25 PM CDT Plan of Treatment Health Maintenance Due Date Last Done Comments Pap test for age 21-65 10/23/2023 , 10/22/2022, 06/20/2021, Additional history exists COVID-19 vaccine series ( season) 2024 Influenza for age 9-49 04/18/2024 , 04/03/2015, 05/02/2014, Additional history exists Depression screening [...] Additional history exists Pneumococcal series for age 6-49 Aged Out No longer eligible based on patient's age to complete this topic Procedures Procedure Name Priority Date/Time Associated Diagnosis Comments ANTI HIV 1/2 Today 01/05/2024 3:30 PM CDT Mild chronic anemia Leukopenia, unspecified type HPV HIGH RISK Routine 10/22/2022 2:39 PM BINDING PRINTER Screening for cervical cancer ANTI HCV Routine 02/20/2022 3:10 PM CDT Encounter for supervision of normal first in first trimester from Last 3 Months or Most Recently Relevant to Health Maintenance Results * ANTI HIV 1/2 (01/05/2024 3:30 PM CDT) HIV-1/HIV-2 SCREEN Non-Reacti ve Non-Reacti ve 01/06/2024 2:26 PM CDT [facility] Comment:HIV-1 p24 and HIV-1/ HIV-2 Ab Not Detected. Blood BLOOD SPECIMEN / Unknown Venipuncture / Unknown 01/05/2024 3:30 PM CDT 01/05/2024 3:31 PM CDT us Nova Jones NP SEND OUTS Final Result [facility] [address] [place] [address], * HPV HIGH RISK (10/22/2022 2:39 PM BINDING PRINTER) TYPE 16 Negative Negative 10/24/2022 5:49 PM BINDING PRINTER [facility] TYPE 18 Negative Negative 10/24/2022 5:49 PM BINDING PRINTER [facility] OTHER HIGH RISK TYPES Negative Negative 10/24/2022 5:49 PM BINDING PRINTER [facility] Other (Cervical) Non-Blood / Unknown 10/22/2022 2:39 PM BINDING PRINTER 10/23/2022 2:00 PM BINDING PRINTER Narrative [facility] - 10/24/2022 5:49 PM BINDING PRINTER HPV types 16, 18, 31, 33, 35, 39, 45, 51, 52, 56, 58, 59, 66 and 68 DNA were undetectable or below the pre-set threshold. Methodology: Aldo Nadeen 4800 HPV Test us Nadine Higgins MD MICROBIOLOGY Final Resul t [facility] [address] [place] [address], * ANTI HCV (02/20/2022 3:10 PM CDT) HEPATITIS C ANTIBODY Non-React el Non-React el 02/21/2022 10:05 AM CDT [facility] Comment:Antibodies to HCV no t detected; does not exclude the possibility of exposure to HCV. Blood BLOOD SPECIMEN / Unknown IV Start / Unknown 02/20/2022 3:10 PM CDT 02/20/2022 3:18 PM CDT us Anastasiia Penny DO SEND OUTS Final Resul t [facility] [address] [place] [address], [place] from Last 3 Months or Most Recently Relevant to Health Maintenance Additional Health Concerns Infection Onset Date Last Indicated ESBL 02/18/2024 02/18/2024 Insurance Matrix Electronic Measuring [facility] Advance Directives * Full Code (Latest Code Status on File) Date Activated Date Inactivated Comments 06/23/2018 10:42 PM 06/26/2018 1:11 PM * Full Code Date Activated Date Inactivated Comments 05/18/2018 10:59 PM 05/22/2018 4:39 PM Care Teams Raise Miner Relationship Specialty Start Date End Date Nadine Higgins MD [address] [place] [address] PCP - General Family Practice 07/03/22 Martell Garcia MD Endocrinology Endocrinology 08/20/12 Nova Jones NP [address] [place] [address] Nurse Practitioner Hematology 01/14/24 Liv Soto MD [address] [place] [address] Medical Oncologist Hematology 01/14/24
== END 2024-09-15 14:15 | disposition home or self-care (01) ==
LOC: ED 13:58
PROVIDERS: Emergency Provider Emergency Medicine Emergency Medical Services; PCP Family Medicine
DX: J10.1 Influenza due to other identified influenza virus with other respiratory manifestations (principal)
CPT/HCPCS: 99283; 99284; J1100

== ENCOUNTER 2025-03-07 08:11 | Emergency (ER) | payer BC, SELFPAY ==
[2025-03-07] VITALS (15 sets, daily range): BP systolic 104–113; BP diastolic 68–78; PULSE 70–93; RESP 8–20; TEMP 36.9; O2SAT 97–100; BMI 27.8
--- OUTSIDE RECORDS SUMMARY | 2025-03-07 08:13 | XMS_ITS | Clinical Summary ---
Author Organization [employer] Address [facility] [place] [address] Care Team Providers Care Melter Loader Name Role Phone Martell Garcia MD Unavailable [phone] Nadine Higgins MD Primary Care Provider Nova Jones NP Unavailable Liv Soto MD Unavailable [phone] Allergies Active Allergy Reactions Criticality Noted Date Comments Amoxicillin Chest Pain High 02/08/2024 Medications levothyroxine 112 mcg tabletIndicatio ns:Hypothyroidi sm (acquired) Take 1 Tablet (112 mcg) by mouth once daily. 90 Tablet 1 5 Active hydrOXYzine HCL 25 mg tabletIndicatio ns:Panic attack Take 1-2 Tablets (25-50 mg) by mouth every 6 hours if needed for Anxiety (panic. May also use prn for sleep). 90 Tablet 3 5 Active cholecalciferol (Vitamin D-3) 2,000 unit capsuleIndicati ons:Low vitamin D level Take 1 Capsule (2,000 units) by mouth once daily. 90 Capsule 3 5 Active hydrOXYzine HCL (ATARAX) 25 mg tabletIndicatio ns:Panic attack Take 1-2 Tablets (25-50 mg) by mouth every 6 hours if needed for Anxiety (panic. May also use prn for sleep). 90 Tablet 4 07/02/20 25 Discontinu ed(Reorder (E-cancel not sent)) omeprazole (PRILOSEC) 20 mg Delayed-Release capsuleIndicati ons:H. pylori infection Take 1 Capsule (20 mg) by mouth two times daily before meals. 60 Capsule 4 02/17/20 25 Discontinu ed(*Med complete/R egimen complete/L evel of care change) cholecalciferol , Vitamin D3, (Vitamin D-3) 5,000 unit tab tabletIndicatio ns:Vitamin D deficiency Take 1 Tablet (5,000 units) by mouth once daily. 90 Tablet 4 02/17/20 25 Discontinu ed(*Med complete/R egimen complete/L evel of care change) levothyroxine 112 mcg tabletIndicatio ns:Hypothyroidi sm (acquired) TAKE 1 TABLET (112 MCG) BY MOUTH ONCE DAILY. 30 Tablet 5 02/17/20 25 Discontinu ed(Reorder (E-cancel not sent)) Hospital, Clinic, or Other Facility Administered Medication Ordered Dose Route Frequency Start Date End Date Status ferumoxytoL (FERAHEME) 510 mg/17 mL (30 mg/mL) injection 510 mgIndications:Other iron deficiency anemia 510 mg IV ONE TIME PRN 03/03/2025 04/26/2025 Activ e Active Problems Problem Noted Date Diagnosed Date [...] ASCUS, cannot exclude H GSIL 06/20/2021 Overview (03/03/2025): 06/2021 ASC-H 07/2021 [place], negative 10/2022 NIL/ HPV negative 02/2025 ASCUS/HPV negative Plan: pap/hpv due 02/2026 Anemia in 11/03/2018 Supervision of high risk in third [facility] 10/12/2018 Hyperemesis gravidarum 06/26/2018 Hypotension 06/24/2018 [...] first 07/22/2008 2010 Overview (02/26/2013): Evolving preeclampsia Encounters Date Type Department Care Team Description 03/07/2025 8:00 AM CDT Telemedicine [facility] [address] [place] [address] Adelaida Garrison PA Lightheaded (Virtual- no vitals taken); Throat Problem 03/04/2025 12:30 PM CDT Telemedicine [facility] [[email or web address]] [address] [place] [id number] Diane Alberto LICSW 03/03/2025 9:30 AM CDT Nurse/Clinic Staff Only [facility] [address] [place] [address] Infusion Therapy (Feraheme 1/2 ) 03/03/2025 Medical Messaging [facility] [address] [place] [address] Nadine Higgins MD Message about your results 03/03/2025 Travel 02/22/2025 Orders Only [facility] [address] [place] [address] Nadine Higgins MD <No scans attached> 02/21/2025 Telephone [facility] [address] [place] [address] Nadine Higgins MD Medication Management (Set up Feraheme) 02/16/2025 12:45 PM CDT Office Visit [address] [place] [address] Nadine Higgins MD Physical (due for pap) 02/16/2025 Travel 01/26/2025 Refill [facility] [address] [place] [address] Nadine Higgins MD Refill Request (Levothyroxine) from Last 3 Months Immunizations Immunization Administration Dates Next Due Human Papilloma Virus [...] Answer Date Recorded PHQ-2 TOTAL SCORE 0 02/16/2025 Social Connections Answer Date Recorded Do you often feel lonely or isolated from those around you? 0 02/16/2025 Financial Resource Strain Answer Date R ecorded Difficulty of Paying Living Expenses 3 02/16/2025 Difficulty of Paying Living Expenses Not on file 02/16/2025 Food Insecurity Answer Date Recorded Do you worry your food will run out before you are able to buy more? 1 02/16/2025 Transportation Needs Answer Date Record ed Does lack of transportation keep you from medica l appointments? 1 02/16/2025 Does lack of transportation keep you from work, meetings or getting things that you need? 1 02/16/2025 Housing Stability Answer Date Recorded What is your housing situation today? 1 02/16/2025 Utilities Answer Date Recorded Do you have trouble paying f or utilities (for example, heat, electricity, water, phone)? 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 No elevated BP. On Magnesium. Had hemorrhage with 300 QBL. Received 1 unit PRBCs Last Filed Vital Signs Vital Sign Reading Time Taken Comments Blood Pressure 100/62 03/03/2025 10:42 AM CDT Pulse 68 03/03/2025 10:42 AM CDT Temperature 36.9 C (98.4 F) 03/03/2025 10:42 AM CDT Respiratory Rate 14 03/23/2024 10:02 AM CDT Oxygen Saturation 100% 03/03/2025 10:42 AM CDT Inhaled Oxygen Concentration - - Weight 70.9 kg (156 lb 6.4 oz) 02/16/2025 12:40 PM CDT Height 160.6 cm (5' 3.23) 02/16/2025 12:40 PM C DT Body Mass Index 27.51 02/16/2025 12:40 PM CDT Plan of Treatment Upcoming Encounters Date Type Department Care Team (Late st Contact Info) Description 03/10/2025 1:00 PM CDT Nurse/Clinic Staff Only [facility] [address] [place] [address] 03/10/2025 2:30 PM CDT Telemedicine [facility] [address] [place] [address] Diane Alberto, PURIFICATION DIRECTOR [address] [place] [address] Health Maintenance Due Date Last Done Comments Hepatitis B series for 19+ (1 of 3 - 19+ 3-dose series) 12/12/2010 COVID-19 vaccine series ( season) 2024 Influenza Vaccine (#1) 2025 0, 04/03/2015, 05/02/2014, Additional history exists BMI (ht and wt on same day) for age 18+ 02/16/2026 02/16/2025, 11/07/2023, 07/03/2022, Additional history exists Depression screening for age 12+ 02/16/2026 02/16/2025 Pap test for age 21-65 02/16/2026 5, 02/16/2025, 10/22/2022, Additional history exists Tetanus booster 07/03/2032 07/03/2022, 09/19, 06/15/2015, Additional history exists Hepatitis C screening for age 18-79 Completed 02/20/2022, 04/27/2018, 04/27/2018 HIV for age 15-65 Completed 01/05/2024, , 04/27/2018, Additional history exists Pneumococcal series for age 6-49 Aged Out No longer eligible based on patient's age to complete this topic Procedures Procedure Name Priority Date/Time Associated Diagnosis Comments H PYLORI ANTIGEN,STOOL Routine 02/22/2025 8:22 AM CDT H. pylori infection CBC WITH AUTO DIFFERENTIAL Routine 02/16/2025 1:15 PM CDT Mild chronic anemia FERRITIN Routine 02/16/2025 1:15 PM CDT Mild chronic anemia TSH Routine 02/16/2025 1:15 PM CDT Hypothyroidism (acquired) IRON PLUS IRON BINDING CAP Routine 02/16/2025 1:15 PM CDT Mild chronic anemia COMP METABOLIC PANEL Routine 02/16/2025 1:15 PM CDT Abdominal pain, chronic, epigastric HEPATIC FUNCTION PANEL Routine 02/16/2025 1:15 PM CDT Abdominal pain, chronic, epigastric MANUFACTURING QUALITY ENGINEER THIN PREP PAP SCREEN IMAGED Routine 02/16/2025 1:00 PM CDT Screening for cervical cancer HPV HIGH RISK Routine 02/16/2025 1:00 PM CDT Screening for cervical cancer ANTI HIV 1/2 Today 01/05/2024 3:30 PM CDT Mild chronic anemia Leukopenia, unspecified type ANTI HCV Routine 02/20/2022 3:10 PM CDT Encounter for supervision of normal first in first trimester (HC) from Last 3 Months or Most Recently Relevant to Health Maintenance Results * (ABNORMAL) H PYLORI ANTIGEN,STOOL (02/22/2025 8:22 AM CDT) HELICOBACTER PYLORI AG, EIA, STOOL SEE NOTE(A) [employer] Comment: HELICOBACTER PYLORI AG, EIA, STOOL Micro Number: [id number] Test Status: Final Specimen Source: Stool/feces Specimen Quality: Adequate H.pylori Ag: Detected Reference Range: Not Detected Stool STOOL SPECIMEN / Unknown 02/22/2025 8:22 AM CDT 02/22/2025 8:23 AM CDT us Nadine Higgins MD MICROBIOLOGY Final Resul t Deed [facility] [address] [place] [address], [facility] [address] [place] [address] * (ABNORMAL) TSH (02/16/2025 1:15 PM CDT) TSH 18.05(H) mIU/L [facility] Comment: Reference Range > or = 20 Years 0.40-4.50 Ranges First trimester 0.26-2.66 Second trimester 0.55-2.73 Third trimester 0.43-2.91 Blood BLOOD SPECIMEN / Unknown 02/16/2025 1:15 PM CDT 02/16/2025 1:16 PM CDT Nadine Higgins MD CHEMISTRY Final Resul t Performing Organization Address [facility] Co de Phone Number [facility] [address] [place] [address], [facility] [address] [place] [address] * IRON PLUS IRON BINDING CAP (02/16/2025 1:15 PM CDT) [facility] IRON, TOTAL 54 40 - 190 mcg/dL [facility] IRON BINDING CAPACITY 283 250 - 450 mcg/dL (calc) [facility] % SATURATION 19 16 - 45 % (calc) [facility] Blood BLOOD SPECIMEN / Unknown 02/16/2025 1:15 PM CDT 02/16/2025 1:16 PM CDT Nadine Higgins MD CHEMISTRY Final Resul t Performing Organization Address [facility]/ZIP Co de Phone Number [facility] [address] [place] [address], [facility] [address] [place] [address] * (ABNORMAL) CBC AND DIFFERENTIAL (02/16/2025 1:15 PM CDT) [facility] WHITE BLOOD CELL COUNT 3.0(L) 3.8 - 10.8 Thousand/u L [facility] RED BLOOD CELL COUNT 3.21(L) 3.80 - 5.10 Million/uL [facility] HEMOGLOBIN 9.7(L) 11.7 - 15.5 g/dL [facility] HEMATOCRIT 30.8(L) 35.0 - 45.0 % [facility] MCV 96.0 80.0 - 100.0 fL [facility] MCH 30.2 27.0 - 33.0 pg [facility] MCHC 31.5(L) 32.0 - 36.0 g/dL [facility] Comment: For adults, a slight decrease in the calculated MCHC value (in the range of 30 to 32 g/dL) is most likely not clinically significant; however, it should be interpreted with caution in correlation with other red cell parameters and the patient's clinical condition. RDW 12.4 11.0 - 15.0 % [facility] PLATELET COUNT 154 140 - 400 Thousand/u L [facility] MPV 10.0 7.5 - 12.5 fL [facility] ABSOLUTE NEUTROPHILS 1,620 1,500 - 7,800 cells/uL [facility] ABSOLUTE LYMPHOCYTES 945 850 - 3,900 cells/uL [facility] ABSOLUTE MONOCYTES 396 200 - 950 cells/uL [facility] ABSOLUTE EOSINOPHILS 30 15 - 500 cells/uL [facility] ABSOLUTE BASOPHILS 9 0 - 200 cells/uL [facility] NEUTROPHILS 54 % [facility] LYMPHOCYTES 31.5 % [facility] MONOCYTES 13.2 % [facility] EOSINOPHILS 1.0 % [facility] BASOPHILS 0.3 % [facility] Blood BLOOD SPECIMEN / Unknown 02/16/2025 1:15 PM CDT 02/16/2025 1:16 PM CDT us Nadine Higgins MD HEMATOLOGY Final Resul t Deed [facility] [address] [place] [address], [place] [phone] [employer] [facility] [address] [place] [address] * (ABNORMAL) FERRITIN (02/16/2025 1:15 PM CDT) [facility] FERRITIN 11(L) 16 - 154 ng/mL [employer] [facility] Blood BLOOD SPECIMEN / Unknown 02/16/2025 1:15 PM CDT 02/16/2025 1:16 PM CDT us Nadine Higgins MD CHEMISTRY Final Resul t Deed [facility] [address] [place] [address], [place] [phone] [facility] [address] [place] [address] * LIVER PANEL (HEPATIC FUNCTION PANEL) (02/16/2025 1:15 PM CDT) [facility] PROTEIN, TOTAL 7.3 6.1 - 8.1 g/dL [facility] ALBUMIN 4.3 3.6 - 5.1 g/dL [facility] GLOBULIN 3.0 1.9 - 3.7 g/dL (calc) [facility] ALBUMIN/GLOBULIN RATIO 1.4 1.0 - 2.5 (calc) [facility] BILIRUBIN, TOTAL 0.6 0.2 - 1.2 mg/dL [facility] BILIRUBIN, DIRECT 0.1 < OR = 0.2 mg/dL [facility] BILIRUBIN, INDIRECT 0.5 0.2 - 1.2 mg/dL (calc) [facility] ALKALINE PHOSPHATASE 47 31 - 125 U/L [facility] AST 19 10 - 30 U/L [facility] ALT 17 6 - 29 U/L [employer] [facility] Blood BLOOD SPECIMEN / Unknown 02/16/2025 1:15 PM CDT 02/16/2025 1:16 PM CDT us Nadine Higgins MD CHEMISTRY Final Resul t Deed [facility] [address] [place] [address], [facility] [address] [place] [address] * COMP METABOLIC PANEL (02/16/2025 1:15 PM CDT) Pathologist [facility] GLUCOSE 82 65 - 99 mg/dL [employer] [facility] Comment: Fasting reference interval UREA NITROGEN (BUN) 16 7 - 25 mg/dL [facility] CREATININE 0.66 0.50 - 0.97 mg/dL [facility] EGFR 119 > OR = 60 mL/min/1. 73m2 [facility] BUN/CREATININE RATIO SEE NOTE: 6 - 22 (calc) [facility] Comment: Not Reported: BUN and Creatinine are within reference range. SODIUM 138 135 - 146 mmol/L [facility] POTASSIUM 3.8 3.5 - 5.3 mmol/L [facility] CHLORIDE 106 98 - 110 mmol/L [facility] CARBON DIOXIDE 25 20 - 32 mmol/L [facility] CALCIUM 9.3 8.6 - 10.2 mg/dL [facility] PROTEIN, TOTAL 7.3 6.1 - 8.1 g/dL [facility] ALBUMIN 4.3 3.6 - 5.1 g/dL [facility] GLOBULIN 3.0 1.9 - 3.7 g/dL (calc) [facility] ALBUMIN/GLOBULIN RATIO 1.4 1.0 - 2.5 (calc) [facility] BILIRUBIN, TOTAL 0.6 0.2 - 1.2 mg/dL [facility] ALKALINE PHOSPHATASE 47 31 - 125 U/L [facility] AST 19 10 - 30 U/L [facility] ALT 17 6 - 29 U/L [facility] Blood BLOOD SPECIMEN / Unknown 02/16/2025 1:15 PM CDT 02/16/2025 1:16 PM CDT us Nadine Higgins MD CHEMISTRY Final Resul t Deed [facility] [address] [place] [address], [facility] [address] [place] [address] * (ABNORMAL) MANUFACTURING QUALITY ENGINEER THIN PREP PAP SCREEN IMAGED [[id number]] (02/16/2025 1:00 PM CDT) Case Report Gynecologic Cytology Report Case: [id number] Authorizing Provider: Nadine Higgins MD Collected: 02/16/2025 1300 Ordering Location: [facility] Received: 02/16/2025 [facility] First Screen: Bari Johnston Pathologist: Aldo Hewitt MD Specimen: MANUFACTURING QUALITY ENGINEER ThinPrep Vial Screening, Cervical 03/03/2025 9:42 AM CDT [facility] EN[facility]AL [facility]ORAT[facility] INTERPRETATION/ RESULT ATYPICAL SQUAMOUS CELLS OF UNDETERMINED SIGNIFICANCE (ASCUS)(A) (none) 03/03/2025 9:42 AM CDT [facility]-C ENTRAL LABORATORY at 0942 CDT SPECIMEN ADEQUACY Satisfactory for evaluation No endocervical component seen 03/03/2025 9:42 AM CDT [facility] HPV REQUEST HPV and PAP 03/03/2025 9:42 AM CDT [facility] Date of LMP 01/24/2025 03/03/2025 9:42 AM CDT [facility] Last Pap Date 10/22/22 03/03/2025 9:42 AM CDT [facility] Last Pap Result NIL 9:42 AM CDT [facility] Abnormal Pap or [place] Bx in last 5 years No 03/03/2025 9:42 AM CDT [facility] Menstrual Status Regular Periods 03/03/2025 9:42 AM CDT [facility] [place] Bx Done Today No 03/03/2025 9:42 AM CDT [facility] Additional Information None given 03/03/2025 9:42 AM CDT [facility] Comment: Cytology is screened at [facility] - [address], [place] [address] and [facility] - [address] [place] [address] and [facility] - [address] [place] [address] Interpreted at [facility] - [address], [place] [address] Automated Review Successful 03/03/2025 9:42 AM CDT [facility] Comment:Specimen processed s uccessfully by automated supervisor aircraft maintenance device, ThinPrep Imaging System, [employer] ANCILLARY TESTING MANUFACTURING QUALITY ENGINEER HPV Ordered, Please see separate report 03/03/2025 9:42 AM CDT [facility] Note The pap test is a screening technique, not a diagnostic procedure. It is used primarily to screen for squamous cancers and precursor lesions. Published studies have shown that it is subject to both false negative and false positive results. The pap test should not be used as the sole means to diagnose or exclude pre-malignant and malignant lesions. 03/03/2025 9:42 AM CDT [facility] Other (Cervical) Non-Blood / Unknown 02/16/2025 1:00 PM CDT 02/16/2025 1:51 PM CDT us Nadine Higgins MD PATHOLOGY/CYTOLOGY Final Re sult [facility] [address] [place] [address], [place] * HPV HIGH RISK (02/16/2025 1:00 PM CDT) TYPE 16 Negative Negative 02/22/2025 6:08 AM CDT [facility] TYPE 18 Negative Negative 02/22/2025 6:08 AM CDT [facility] OTHER HIGH RISK TYPES Negative Negative 02/22/2025 6:08 AM CDT [facility] Other (Cervical) Non-Blood / Unknown 02/16/2025 1:00 PM CDT 02/17/2025 8:13 AM CDT Narrative [facility] - 02/22/2025 6:08 AM CDT HPV types 16, 18, 31, 33, 35, 39, 45, 51, 52, 56, 58, 59, 66 and 68 DNA were undetectable or below the pre-set threshold. Methodology: Aldo Nadeen 4800 HPV Test Nadine Higgins MD MICROBIOLOGY Final Resul t Performing Organization Address City/[facility]/ZIP Co de Phone Number [facility] [address] [place] [address], * ANTI HIV 1/2 (01/05/2024 3:30 PM CDT) Pathologist [facility] HIV-1/HIV-2 SCREEN Non-Reacti ve Non-Reacti ve 01/06/2024 2:26 PM CDT [facility] Comment:HIV-1 p24 and HIV-1/ HIV-2 Ab Not Detected. Blood BLOOD SPECIMEN / Unknown Venipuncture / Unknown 01/05/2024 3:30 PM CDT 01/05/2024 3:31 PM CDT us Nova Jones NP SEND OUTS Final Result [facility] [address] [place] [address], * ANTI HCV (02/20/2022 3:10 PM CDT) HEPATITIS C ANTIBODY Non-React el Non-React el 02/21/2022 10:05 AM CDT [facility] Comment:Antibodies to HCV no t detected; does not exclude the possibility of exposure to HCV. Blood BLOOD SPECIMEN / Unknown IV Start / Unknown 02/20/2022 3:10 PM CDT 02/20/2022 3:18 PM CDT us Anastasiia Penny DO SEND OUTS Final Resul t [facility] [address] [place] [address], [place] from Last 3 Months or Most Recently Relevant to Health Maintenance Additional Health Concerns Infection Onset Date Last Indicated ESBL 02/18/2024 02/18/2024 Insurance [facility] Advance Directives * Full Code (Latest Code Status on File) Date Activated Date Inactivated Comments 06/23/2018 10:42 PM 06/26/2018 1:11 PM * Full Code Date Activated Date Inactivated Comments 05/18/2018 10:59 PM 05/22/2018 4:39 PM Care Teams Melter Loader Relationship Specialty Start Date End Date Nadine Higgins MD [address] [place] [address] PCP - General Family Practice 07/03/22 Martell Garcia MD Endocrinology Endocrinology 08/20/12 Nova Jones, KARINA [address] [place] [address] Nurse Practitioner Hematology 01/14/24 Liv Soto MD [address] [facility] [place] [address] Medical Oncologist Hematology 01/14/24
--- NOTE | 2025-03-07 08:36 | ED_ITS ---
HPI - General Adult General Chief complaint: Dizziness/Vertigo Stated complaint: dizziness Time Seen by Provider: 03/07/25 08:36 History of Present Illness HPI narrative: patient is feeling lightheaded, tingling in the hand, legs, mouth, hard to swallow. c/o CP across the chest, hurts to breath and both eyes hurt but the L one is swollen. started yesterday and is worse this morning. 34-year-old woman presenting to the emergency department with concern of ting ling in various locations. Hurts to breathe. She is difficult to interview not really answering questions and not really seemingly able to participate in physical exam. No complaint of headache. I understand that dizziness and lightheadedness started after waking this morning when discovered that had really sore throat. No rashes apparently. No fever. No cough noted. Generally weak. Review of record shows preeclampsia, depression, Graves/hypothyroid. Related Data Home Medications ?Medication ?Instructions ?Recorded ?Confirmed levothyroxine 112 mcg tablet 112 mcg PO DAILY 08/11/24 03/07/25 hydroxyzine HCl 25 mg tablet 25 mg PO TID PRN 03/07/25 03/07/25 Allergies Allergy/AdvReac Type Severity Reaction Status Date / Time amoxicillin Allergy Intermediate Verified 03/07/25 08:34 Review of Systems Status of ROS: Reports: unobtainable due to mental status (Limited ability to obtain this.) [facility] Medical History Iron deficiency anemia ?D50.9 - Iron deficiency anemia, unspecified (ICD-10) Depression ?F32.A - Depression, unspecified (ICD-10) (normal spontaneous vaginal delivery) ?O80 - Encounter for full-term uncomplicated delivery (ICD-10) Graves' disease ?E05.00 - Thyrotoxicosis with diffuse goiter without thyrotoxic crisis or storm (ICD-10) Hypothyroidism (acquired) ?E03.9 - Hypothyroidism, unspecified (ICD-10) Major depressive disorder ?F32.9 - Major depressive disorder, single episode, unspecified (ICD-10) Vitamin D deficiency ?E55.9 - Vitamin D deficiency, unspecified (ICD-10) Pancytopenia ?D61.818 - Other pancytopenia (ICD-10) Hyperemesis gravidarum ?O21.0 - Mild hyperemesis gravidarum (ICD-10) Anemia affecting ?O99.019 - Anemia complicating , unspecified trimester (ICD-10) H. pylori infection ?A04.8 - Other specified bacterial intestinal infections (ICD-10) Surgical History History of esophagogastroduodenoscopy (EGD) ?Z98.890 - Other specified postprocedural states (ICD-10) History of dilation and curettage ?Z98.890 - Other specified postprocedural states (ICD-10) History of colposcopy ?Z98.890 - Other specified postprocedural states (ICD-10) History of cholecystectomy ?Z90.49 - Acquired absence of other specified parts of digestive tract (ICD- 10) Social History Smoking Status: Never smoker Do you use any of these nicotine containing products: None Second hand tobacco smoke exposure: No How often do you have a drink containing alcohol: never AUDIT-C Alcohol total score: 0 Non-prescribed substance use: denies use service: No Exam Narrative: Exam Narrative: Breathing easily in exam bed. No stridor is visible. Appears to be otherwise very still. Keeps her eyes closed. Heart in regular rate and rhythm. Lungs are clear. Neck is supple without lymphadenopathy. Oropharynx is difficult to visualize as doesn't seem to be able to open her mouth. I do not think is demonstrating trismus. Oropharynx though with visualization aided by tongue depressor I do not see significant erythema nor asymmetry. TMs bilaterally are clear. She is able to move her right arm. Says that she can move her left arm or apparently legs. Wiggles her left fingers when requested. I have to lift her eyelids to examine her eyes. Eyes are injected and she will begin tearing during my questioning while eyes are closed. Skin is warm and dry without rash. There is no edema. Cranial nerves 2-12 look to be intact. Pupils are equal. Is accompanied by who appears to be an appropriately attentive significant other. Const: Vital Signs, click to edit/add: Vital Signs - 24 hr 03/07/25 08:23 03/07/25 08:34 03/07/25 08:35 Temperature 98.4 F Pulse Rate 76 83 Pulse Rate [Pulse Oximeter] 77 Respiratory Rate 16 20 20 Blood Pressure 104/78 Blood Pressure [Ri ght Upper Arm] 113/73 Pulse Oximetry 100 100 100 Oxygen Delivery Me thod Room Air 03/07/25 08:45 03/07/25 09:00 03/07/25 09:02 Temperature Pulse Rate 93 73 71 Pulse Rate [Pulse Oximeter] Respiratory Rate 16 15 Blood Pressure 105/68 Blood Pressure [Ri ght Upper Arm] Pulse Oximetry 100 97 98 Oxygen Delivery Me thod 03/07/25 09:03 03/07/25 09:15 03/07/25 09:30 Temperature Pulse Rate 74 72 74 Pulse Rate [Pulse Oximeter] Respiratory Rate Blood Pressure Blood Pressure [Ri ght Upper Arm] Pulse Oximetry 100 99 98 Oxygen Delivery Me thod 03/07/25 09:31 03/07/25 09:32 03/07/25 09:45 Temperature Pulse Rate 70 74 Pulse Rate [Pulse Oximeter] Respiratory Rate 16 12 14 Blood Pressure 106/70 Blood Pressure [Ri ght Upper Arm] Pulse Oximetry 98 98 Oxygen Delivery Me thod 03/07/25 10:00 03/07/25 10:02 03/07/25 10:15 Temperature Pulse Rate 74 77 74 Pulse Rate [Pulse Oximeter] Respiratory Rate 8 L 14 17 Blood Pressure 106/73 Blood Pressure [Ri ght Upper Arm] Pulse Oximetry 99 99 100 Oxygen Delivery Me thod Documenting provider has reviewed patient's vital signs: yes Course Vital Signs Vital signs: Initial Vital Signs Temperature 98.4 F 03/07/25 08:23 Temperature Source Temporal Artery Scan 03/07/25 08:23 Pulse Rate 77 03/07/25 08:23 Respiratory Rate 16 03/07/25 08:23 Blood Pressure 113/73 03/07/25 08:23 Blood Pressure Mean 86 03/07/25 08:23 Blood Pressure Position Sitting 03/07/25 08:23 Pulse Oximetry 100 03/07/25 08:23 Oxygen Delivery Method Room Air 03/07/25 08:23 Vital Signs Temperature 98.4 F 03/07/25 08:23 Pulse Rate 77 03/07/25 08:23 Respiratory Rate 16 03/07/25 08:23 Blood Pressure 113/73 03/07/25 08:23 Pulse Oximetry 100 03/07/25 08:23 Oxygen Delivery Method Room Air 03/07/25 08:23 Temperature 98.4 F 03/07/25 08:23 Pulse Rate 74 03/07/25 10:15 Respiratory Rate 17 03/07/25 10:15 Blood Pressure 106/73 03/07/25 10:02 Pulse Oximetry 100 03/07/25 10:15 Oxygen Delivery Method Room Air 03/07/25 08:23 Medications Administered Medications: Discontinued Medications Generic Name Dose Route Start Last Admin Trade Name Anish PRN Reason Stop Dose Admin Diazepam 7.5 mg 03/07/25 08:47 03/07/25 09:04 Diazepam 5 Mg Tablet PO 03/07/25 08:48 7.5 mg ONCE ONE Administration Medical Decision Making MDM Narrative Medical decision making narrative: She really seems to be having a stress reaction of some sort. I have seen similar with strep infection. Vitals are reassuring. Arrhythmia? though EKG looks normal as below. Headache/migraine? With normal vitals and demonstrated emotions I think would swab for strep and treated with benzodiazepine; Valium given dizziness that had apparently have been reported. I do not appreciate specific deficits to suggest stroke otherwise. Monitored over time in the emergency depart without further event. Strep swab is negative. She ultimately was requesting departure. On reassessment appears to be feeling better. Tired understandably given medication and I think recent stress. Is not offering any more on interview. Opens her eyes now spontaneously. Briefly conversing. Ambulatory. See patient discharge plan for further discussion Your vitals have been reassuring here during time in the ER as was your EKG. Return for new and focal weakness, worsening discoordination, severe headache, repeated vomiting. Lab Data Lab results reviewed: Yes I reviewed the patient's lab results Labs: Lab Results 03/07/25 Range/Units 08:46 Group A Strep DNA NOT DETECTED (Not Detectd) ECG Data Attestation: I personally reviewed and interpreted this ECG as follows: (Normal sinus rhythm at a rate 75. No ischemic changes.) Discharge Plan Discharge Clinical Impression: Stress, Pharyngitis Patient Disposition: Home w/ Parent or Adult Condition: Improved Additional Instructions: Your vitals have been reassuring here during time in the ER as was your EKG. Return for new and focal weakness, worsening discoordination, severe headache, repeated vomiting. Prescriptions: No Action levothyroxine 112 mcg tablet 112 mcg PO DAILY hydroxyzine HCl 25 mg tablet 25 mg PO TID PRN Follow Up/Referrals: Nadine Higgins MD [Primary Care Provider, Family Practice] Stand Alone Forms: [employer] Info Instructions
[2025-03-07 09:36] LABS: Strep A DNA Probe* NOT DETECTED (Not Detectd)
== END 2025-03-07 10:40 | disposition home or self-care (01) ==
PROVIDERS: Emergency Provider Family Medicine; PCP Family Medicine
DX: J02.9 Acute pharyngitis, unspecified (principal); F43.9 Reaction to severe stress, unspecified
CPT/HCPCS: 87651; 93005; 99284

== ENCOUNTER 2025-05-07 08:49 | Outpatient (CLI) | payer BC, SELFPAY | END 2025-05-07 08:50 | disposition home or self-care (01) | PROVIDERS: PCP Family Medicine; Referring Provider Family Medicine | DX: N30.00 Acute cystitis without hematuria (principal) | CPT/HCPCS: 87086 ==